=== PATIENT | female | born 1980 | race Caucasian/White ===

== ENCOUNTER 2025-04-19 15:48 | Outpatient (AMB) | payer BC, SELFPAY ==
--- OUTSIDE RECORDS SUMMARY | 2025-04-19 21:08 | XMS_ITS | Clinical Summary ---
Author Organization [facility] Address [address] [place], [place] [id number] Phone Care Team Providers Care Neonatal Surgeon Name Role Phone Abbey Kurtz MD Primary Care Provider Social History Tobacco Use Types Packs/Day Years Used Date Smoking Tobacco: Never Assessed Digital Access Answer Date Recorded No 03/13/2023 No 03/13/2023 Reliable internet access at home? Not on file 03/13/2023 Device with a working camera? Not on file Comments Unknown Sex and Gender Information Value Date Recorded Sex Assigned at Not on file Legal Sex Female 9:24 PM EDT Gender Identity Not on file Sexual Orientation Not on file Plan of Treatment Not on file Medical Devices Not on file Insurance [employer] PPO [employer] P[employer] Care Teams Neonatal Surgeon Relationship Specialty Start Date End Date Abbey Kurtz MD [id number] [id number] PCP - General Family Medicine 03/13/23 Additional Source Comments The information contained in this document represents components of the legal health record. It is not the complete legal health record.[facility]
== END 2025-04-19 15:58 | disposition home or self-care (01) ==
PROVIDERS: PCP Student in an Organized Health Care Education/Training Program; Visit Provider Registered Nurse Emergency
DX: J30.89 Other allergic rhinitis (principal)
CPT/HCPCS: 95117; 95165

== ENCOUNTER 2025-05-10 15:41 | Outpatient (AMB) | payer OTHER, SELFPAY ==
--- OUTSIDE RECORDS SUMMARY | 2025-05-10 18:01 | XMS_ITS | Data Portability ---
Author Organization 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 Patient consented to video & audio visit Patient was located in the [facility]. Provider was located in the office. No other persons participated in the telemedicine visit except for the patient unless otherwise indicated here. Total time of visit was 15 minutes. Not available 06/18/2024 12:08:40 Plan of Treatment Reminders Order Date Submit Date Provider Last Modified By Organization Details Last Modified Time Details Appointments FOLLOW UP 2025 08:45A He KURTZ MD Not available Not available Not available Lab lipid panel, serum 2024 025 [facility], [address] [place], [address], 03/26/2025 08:58:36 CBC w/ auto diff 2024 025 [facility], [address] [place], [address], 03/26/2025 08:58:36 TSH, ultra- sensit ritika, serum 2024 025 CHRISTINA [facility], [address], [place], [address], 03/26/2025 08:58:36 BMP, serum or plasma 2024 025 CHRISTINA [facility], [address], [place], [address], 03/26/2025 08:58:[address] referr al 2024 025 [facility], [address] [place] [address], [id number], 11/09/2024 10:38:23 Procedures None record ed. Surgeries None record ed. Imaging XR, chest, 2 view 2023 024 Not available 06/26/2024 15:28:25 Medication Orders famoti dine 20 mg tablet 2024 025 [id number], [address] [place] [address], [id number], 03/26/2025 09:20:44 amlodi pine 2.5 mg tablet 2024 025 [facility], [address] [place] [address], [id number], 10/12/2024 09:51:35 losart an 50 mg tablet 2024 025 [facility] #[id number], [address] [place] [address], [id number], 10/12/2024 09:44:42 Patient Targets Encounter Date Encounter Id Patient Goals Patient Target Last Modified By Organization Details Last Modified Time 08/13/2024 [id number] [facility] goal of Blood Pressure 140 / 90 Not available Not available Not available [facility] goal of Exercise level Not available Not available 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 and to monitor dietary sodium. Will monitor home blood pressures and bring readings to appointments. Patient preferences and goals incorporated in plan and updated/modifie d as needed to reflect progress toward goal. pmadden Not available 08/13/2024 15:37:19 Patient Instructions Encounter Date Encounter Id Patient Instructions Last Modified By Organization Details Last Modified Time 06/18/2024 [id number] allergies: care instructions Not available 06/18/2024 12:11:57 cold sores: care instructions Not available 06/18/2024 12:11:57 pulmonary function test* lmulerovalle Not available 07/16/2024 11:40:53 methacholine challenge* - to be done with pft testing lmulerovalle Not available 07/01/2024 11:36:23 08/13/2024 [id number] Medications (OTC, herbal therapies, supplements) reviewed and reconciled with patient and or caregiver, including potential side effects, drug interactions, instructions, and the consequences of not taking medication. Reviewed potential barriers to medication adherence, such as side effects from medication or cost of medication. pmadden Not available 08/13/2024 15:37:35 10/12/2024 [id number] Patient will follow up and keep appointment as scheduled. 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 LUNGS AND PLEURA : Clear lungs. Normal pulmon dora vascul arity. No pleura l effusi on. No pneumo thorax . HEART, MEDIAS TINUM AND TANNER: Heart is normal in size. Normal medias tinal and hilar contou r. BONES AND SOFT TISSUE S: No acute abnorm ality. Patila t has had a cholec ystect tori. IMPRES ERNIE: No acute abnorm ality. WSN: [id number] Orderi ng Physic driss: Heriberto Monet Dictat ed By: Robert Ayers MD Dictat ed Date/T deborah: 2:33 pm Review ed By: Robert Ayers MD Signed By: oRbert Ayers MD Signed Date/T deborah: 2:33 pm Transc ribed By: SHABBIR Transc ribed Date/T deborah: 2:31 pm Patila t Class: Outpat ient [facility] (Outpt Imaging) [address] , [place], [address], 06/26/2024 16:13:16 09/04/19 25 09/03/2024 MAMMO , scree licha, digit al, bilat eral PROCED URE: MM Digita l Mammo Screen ing INDICA TION: Screen ing for breast cancer . No known palpab le abnorm alitie s. COMPAR JAMIL: Multip le prior mammog joshua dating back to 08/13/19 23. TECHNI QUE: Full-f ield digita l CC and MLO 3D tomosy nthesi s images of both breast s were acquir ed. Comput er-aid ed detect ion (CAD) was utiliz ed in the interp retati on of this study. DENSIT Y: The breast tissue is extrem rajwinder dense, which lowers the sensit ivity of mammog claudia. FINDIN GS: No suspic ious masses , suspic ious microc alcifi cation s, or areas of nico ectura l distor tion are seen in either breast to sugges t malign radha. Biopsy clip in the right breast . Scatte red benign -appea ring calcif icatio ns bilate rally, with no aggres sive change . IMPRES ERNIE: No mammog raphic eviden ce of malign radha. RECOMM ENDATI ON: Annual mammog raphic screen ing BI-RAD S: 2 (Benig n) Lay letter mailed to christopher balderas WSN: [id number] Orderi ng Physic driss: Heriberto Monet Dictat ed By: Jose Raul Middleton MD Dictat ed Date/T deborah: 9:59 am Review ed By: Jose Raul Middleton MD Signed By: Jose Raul Middleton MD Signed Date/T deborah: 9:59 am Transc ribed By: CSB Transc riptio n Date/T deborah: 9:56 am Birads : Christopher balderas Class: Outpat ient [id number] [facility] (Outpt Imaging) [address] [place], [address], 09/04/2024 10:03:36 09/04/19 25 09/03/2024 MAMMO , scree licha, digit al, bilat eral No observ ation record ed. [facility] [address], [place], [address], 09/04/2024 10:14:10 Result Notes Documentation Provider Name and Address Organization Details Recorded Time Xr, Chest, 2 View : Chest 2 Views Frontal and Lat Reason: cough COMPARISON: 04/16/2018 FINDINGS: LINES AND TUBES: None. LUNGS AND PLEURA: Clear lungs. Normal pulmonary vascularity. No pleural effusion. No pneumothorax. HEART, MEDIASTINUM AND TANNER: Heart is normal in size. Normal mediastinal and hilar contour. BONES AND SOFT TISSUES: No acute abnormality. Patient has had a cholecystectomy. IMPRESSION: No acute abnormality. WSN: [id number] Ordering Physician: Abbey Kurtz Dictated By: Robert Jarvis MD Dictated Date/Time: 06/26/24 2:33 pm Reviewed By: Robert Jarvis MD Signed By: Robert Jarvis MD Signed Date/Time: 06/26/24 2:33 pm Transcribed By: SHABBIR Transcribed Date/Time: 06/26/24 2:31 pm Patient Class: Outpatient ABBEY KURTZ MD [address], [address], [facility] 06/26/2024 16:10:30 Mammo, Screening, Digital, Bilateral : PROCEDURE: MM Digital Mammo Screening INDICATION: Screening for breast cancer. No known palpable abnormalities. COMPARISON: Multiple prior mammograms dating back to 08/13/2022. TECHNIQUE: Full-field digital CC and MLO 3D tomosynthesis images of both breasts were acquired. Computer-aided detection (CAD) was utilized in the interpretation of this study. DENSITY: The breast tissue is extremely dense, which lowers the sensitivity of mammography. FINDINGS: No suspicious masses, suspicious microcalcifications, or areas of architectural distortion are seen in either breast to suggest malignancy. Biopsy clip in the right breast. Scattered benign-appearing calcifications bilaterally, with no aggressive change. IMPRESSION: No mammographic evidence of malignancy. RECOMMENDATION: Annual mammographic screening BI-RADS: 2 (Benign) Lay letter mailed to patient WSN: [id number] Ordering Physician: Abbey Kurtz Dictated By: Jose Raul Mojica MD Dictated Date/Time: 09/04/24 9:59 am Reviewed By: Jose Raul Mojica MD Signed By: Jose Raul Mojica MD Signed Date/Time: 09/04/24 9:59 am Transcribed By: SHABBIR Law Office Manager Date/Time: 09/04/24 9:56 am Birads: Patient Class: Outpatient Antonella tellez [facility] 09/04/2024 10:03:36 Problems Name Problem SNOMED Code Status Onset Date Resolution Date Notes Provider Name and Address Organization Details Recorded Time Low back pain 914096614 Active Ryanne tellez [facility] 5 20:03:23 Acute sinusiti s 10757636 Completed 01/25/2017 Ryanne Hathaway aniceto tellez [facility] 7 15:37:55 Pain of hip region 28888397 Completed 11/17/2018 Removal Reason: not specific Corrine Forte rosalinda [facility] 9 10:42:32 Osteonec rosis of hip 935277516 Completed 05/12/2019 Removal Reason: dx not specific Corrine Forte rosalinda [facility] 9 10:07:22 Acute conjunct ivitis 43144223 Completed 01/25/2017 Ryanne Hathaway aniceto tellez [facility] 7 15:38:37 Osteonec rosis of head of femur 554293735 Active osteonec rosis, did see a speciali st for discussi on of surgery, not yet a candidat e ABBEY KURTZ MD [address], [facility] [place], [address] , [facility] 3 14:01:31 Malignan t lymphoma (clinica l) Completed 199502/16/2014 DATE: 1995; STORY: S/P CHEMOTHE RAPY, IN REMISSIO N; IMPRESSI ON: NO FURTHER SURVEILL ANCE NEEDED, DOING GREAT; RECORDED 11/13/19 14 12:34PM BY ELMER SUH ON/ADDEN DUM Not Available [facility] 4 15:06:12 Malignan t lymphoma (clinica l) Completed 199503/15/2014 DATE: 1995; STORY: S/P CHEMOTHE RAPY, IN REMISSIO N; IMPRESSI ON: NO FURTHER SURVEILL ANCE NEEDED, DOING GREAT; RECORDED 11/13/19 14 12:34PM BY JOSE ALFREDO NELSON I ANNOTATI ON/ADDEN DUM Not Available [facility] 4 05:41:10 Generali zed abdomina l pain 666584542 Completed 200702/16/2014 IMPRESSI ON: I SPOKE WITH DR YECENIA MARRUFO, PT THERE WITH ABD PAIN, PANCREAT ITIS AND GALLSOTN ES AND DILATED CBD. WILL BE ADMITTED AND USE DR MILKA [facility]; RECORDED 04/21/20 08 8:12AM BY THERESA BOYLE ANNOTATI ON/ADDEN DUM Not Available [facility] 4 15:06:10 General examinat ion of patient Completed 200702/16/2014 IMPRESSI ON: PAP UTD, EXERCISE S, DOING WELL; RECORDED 04/21/20 08 8:12AM BY THERESA BOYLE ANNOTATI ON/ADDEN DUM Not Available [facility] 4 15:06:11 Generali zed abdomina l pain 805918349 Completed 200703/15/2014 IMPRESSI ON: I SPOKE WITH DR YECENIA MARRUFO, PT THERE WITH ABD PAIN, PANCREAT ITIS AND GALLSOTN ES AND DILATED CBD. WILL BE ADMITTED AND USE DR MILKA [facility]; RECORDED 04/21/20 08 8:12AM BY EFREM COLÓNATI ON/ADDEN DUM Not Available [facility] 4 05:41:09 General examinat ion of patient Completed 200703/15/2014 IMPRESSI ON: PAP UTD, EXERCISE S, DOING WELL; RECORDED 04/21/20 08 8:12AM BY THERESA BOYLE, ANNOTATI ON/ADDEN DUM Not Available [facility] 4 05:41:09 Knee pain Completed 200802/16/2014 IMPRESSI ON: PT'S LEFT LEG PAIN IS WORSE, WILL SEE DR MILLER NEXT WEEK AND I WILL GET AN XRAY AND TREAT WITH TYLENOL WITH CODEINE. HAD BEEN INTERMIT TANT WHEN LAST SEEN THOUGHT DUE TO MOVING BOXES, NOW PAINFUL ALL THE TIME; RECORDED 08/18/19 09 8:40AM BY EFREM COLÓNATI ON/ADDEN DUM Not Available [facility] 4 15:06:12 Knee pain Completed 200803/15/2014 IMPRESSI ON: PT'S LEFT LEG PAIN IS WORSE, WILL SEE DR MILLER NEXT WEEK AND I WILL GET AN XRAY AND TREAT WITH TYLENOL WITH CODEINE. HAD BEEN INTERMIT TANT WHEN LAST SEEN THOUGHT DUE TO MOVING BOXES, NOW PAINFUL ALL THE TIME; RECORDED 08/18/19 09 8:40AM BY THERESA BOYLE, ANNOTATI ON/ADDEN DUM Not Available [facility] 4 05:41:10 Diaper rash 75165108 Completed 200802/16/2014 RECORDED 11/18/19 09 9:58AM BY BRANDAN KAT MA, ANNOTATI ON/ADDEN DUM Not Available [facility] 4 15:06:11 Diaper rash 29992582 Completed 200803/15/2014 RECORDED 11/18/19 09 9:58AM BY BRANDAN KAT MA, ANNOTATI ON/ADDEN DUM Not Available [facility] 4 05:41:09 Influenz a vaccine needed [id number] 06 Completed 201002/16/2014 DATE: 09/07/19 11; RECORDED 07/03/20 13 10:40AM BY GERMAIN BURR MA, ANNOTATI ON/ADDEN DUM Not Available [facility] 4 15:06:11 Influenz a vaccine needed [id number] 06 Completed 201003/15/2014 DATE: 09/07/19 11; RECORDED 07/03/20 13 10:40AM BY GERMAIN BURR MA, ANNOTATI ON/ADDEN DUM Not Available [facility] 4 05:41:09 Elevated blood-pr essure reading without diagnosi s of hyperten ernie 273756525 Completed 201002/16/2014 IMPRESSI ON: 14BP'S AT HOME 120'S OVER 70'S, CONTINUE TO CHECK AT HOME, 6 MONTH FOLLOWUP ; RECORDED 12/02/19 11 10:53AM BY BRANDAN KAT MA, ANNOTATI ON/ADDEN DUM Not Available [facility] 4 15:06:11 Elevated blood-pr essure reading without diagnosi s of hyperten ernie 175289441 Completed 201003/15/2014 IMPRESSI ON: 14BP'S AT HOME 120'S OVER 70'S, CONTINUE TO CHECK AT HOME, 6 MONTH FOLLOWUP ; RECORDED 12/02/19 11 10:53AM BY BRANDAN KAT MA, EFREMATI ON/ADDEN DUM Not Available [facility] 4 05:41:09 Abdomina l pain 41617532 Completed 201102/16/2014 IMPRESSI ON: AFEBRILE , NON-ACUT E ABDOMEN; RECORDED 06/19/20 12 10:28AM BY EFREM SUHATI ON/ADDEN DUM Not Available [facility] 4 15:06:10 Amenorrh ea 81745440 Completed 201102/16/2014 RECORDED 06/19/20 12 10:28AM BY JOSE ALFREDO NELSON I ANNOTATI ON/ADDEN DUM Not Available [facility] 4 15:06:10 Screenin g for malignan t neoplasm of cervix Completed 201102/16/2014 RECORDED 06/19/20 12 10:28AM BY EFREM SUHATI ON/ADDEN DUM Not Available [facility] 4 15:06:11 Impetigo 50362723 Completed 201102/16/2014 RECORDED 06/19/20 12 10:28AM BY EFREM SUHATI ON/ADDEN DUM Not Available [facility] 4 15:06:12 Large cell anaplast ic lymphoma Completed 201102/16/2014 RECORDED 06/19/20 12 10:28AM BY EFREM SUHATI ON/ADDEN DUM Not Available [facility] 4 15:06:12 Malaise and fatigue 083570758 Completed 201102/16/2014 IMPRESSI ON: MOOD GOOD, WILL WEAN OFF ZOLOFT OVER 2 MONTHS; RECORDED 06/19/20 12 10:28AM BY JOSE ALFREDO NELSON I ANNOTATI ON/ADDEN DUM Not Available [facility] 4 15:06:12 Abdomina l pain 13107460 Completed 201103/15/2014 IMPRESSI ON: AFEBRILE , NON-ACUT E ABDOMEN; RECORDED 06/19/20 12 10:28AM BY JOSE ALFREDO NELSON I ANNOTATI ON/ADDEN DUM Not Available [facility] 4 05:41:09 Amenorrh ea 88896372 Completed 201103/15/2014 RECORDED 06/19/20 12 10:28AM BY JOSE ALFREDO NELSON I ANNOTATI ON/ADDEN DUM Not Available [facility] 4 05:41:09 Screenin g for malignan t neoplasm of cervix Completed 201103/15/2014 RECORDED 06/19/20 12 10:28AM BY JOSE ALFREDO NELSON I ANNOTATI ON/ADDEN DUM Not Available [facility] 4 05:41:09 Impetigo 39848731 Completed 201103/15/2014 RECORDED 06/19/20 12 10:28AM BY JOSE ALFREDO NELSON I ANNOTATI ON/ADDEN DUM Not Available [facility] 4 05:41:09 Large cell anaplast ic lymphoma Completed 201103/15/2014 RECORDED 06/19/20 12 10:28AM BY JOSE ALFREDO NELSON I ANNOTATI ON/ADDEN DUM Not Available [facility] 4 05:41:10 Malaise and fatigue 043919923 Completed 201103/15/2014 IMPRESSI ON: MOOD GOOD, WILL WEAN OFF ZOLOFT OVER 2 MONTHS; RECORDED 06/19/20 12 10:28AM BY JOSE ALFREDO NELSON I ANNOTATI ON/ADDEN DUM Not Available [facility] 4 05:41:10 Candidal vulvovag initis 56973367 Completed 201202/16/2014 RECORDED 10/24/19 13 10:17AM BY GERMAIN BURR MA, ANNOTATI ON/ADDEN DUM Not Available [facility] 4 15:06:13 Candidal vulvovag initis 63451518 Completed 201203/15/2014 RECORDED 10/24/19 13 10:17AM BY GERMAIN BURR MA, ANNOTATI ON/ADDEN DUM Not Available [facility] 4 05:41:10 Conjunct ivitis 8040017 Completed 201202/16/2014 RECORDED 03/11/20 13 10:11AM BY ULISES REDDY MA, ANNOTATI ON/ADDEN DUM Not Available [facility] 4 15:06:11 Joint pain in ankle and foot Completed 201202/16/2014 IMPRESSI ON: INVERSIO N INJURY, PT TO SEE DR FINCH , ? [facility]; RECORDED 03/11/20 13 10:11AM BY ULISES REDDY MA, ANNOTATI ON/ADDEN DUM Not Available [facility] 4 15:06:13 Conjunct ivitis 8259260 Completed 201203/15/2014 RECORDED 03/11/20 13 10:11AM BY ULISES REDDY MA, ANNOTATI ON/ADDEN DUM Not Available [facility] 4 05:41:09 Joint pain in ankle and foot Completed 201203/15/2014 IMPRESSI ON: INVERSIO N INJURY, PT TO SEE DR FINCH , ? [facility]; RECORDED 03/11/20 13 10:11AM BY ULISES REDDY MA, ANNOTATI ON/ADDEN DUM Not Available [facility] 4 05:41:10 Acute sinusiti s 24337674 Completed 201202/16/2014 IMPRESSI ON: INITIATE D BY ALLERGCRICKET SMoira JACK 2 DAYS FOR AUGMENTI N. START DOING NETI-POT AND FLONASE FIRST. TAKE AUGMENTI N IF NO IMPROVEM ENT.; RECORDED 06/08/20 13 3:41PM BY GERMAIN BURR MA, ANNOTATI ON/ADDEN DUM Ryanne tellez MA [facility] 7 15:37:55 Patient status finding [id number] Completed 201202/16/2014 RECORDED 06/08/20 13 3:41PM BY GERMAIN BURR MA ANNOTATI ON/ADDEN DUM Ryanne tellez MA [facility] 7 15:37:53 Acute sinusiti s 54188341 Completed 201203/15/2014 IMPRESSI ON: INITIATE D BY ALLERGIE S. HOLD 2 DAYS FOR AUGMENTI N. START DOING NETI-POT AND FLONASE FIRST. TAKE AUGMENTI N IF NO IMPROVEM ENT.; RECORDED 06/08/20 13 3:41PM BY GERMAIN BURR MA, ANNOTATI ON/ADDEN DUM Ryanne tellez MA - [facility] 7 15:37:55 Acute pharyngi tis 670659478 Completed 201302/16/2014 IMPRESSI ON: SEEMS LIKE INFLAMED LYMPH NODE, TIME AND REST NO EVIDENCE OF INFECTIO N; RECORDED 11/13/19 14 12:34PM BY EFREM SUHATI ON/ADDEN DUM Not Available [facility] 4 15:06:10 Hand foot and mouth disease 932226549 Completed 201302/16/2014 RECORDED 11/13/19 14 12:34PM BY EFREM SUHATI ON/ADDEN DUM Not Available [facility] 4 15:06:11 Eruption 030978270 Completed 201302/16/2014 RECORDED 11/13/19 14 12:34PM BY EFREM SUHATI ON/ADDEN DUM Not Available [facility] 4 15:06:13 Acute pharyngi tis 815389787 Completed 201303/15/2014 IMPRESSI ON: SEEMS LIKE INFLAMED LYMPH NODE, TIME AND REST NO EVIDENCE OF INFECTIO N; RECORDED 11/13/19 14 12:34PM BY EFREM SUHATI ON/ADDEN DUM Not Available [facility] 4 05:41:09 Hand foot and mouth disease 916476900 Completed 201303/15/2014 RECORDED 11/13/19 14 12:34PM BY EFREM SUHATI ON/ADDEN DUM Not Available [facility] 4 05:41:09 Eruption 378414215 Completed 201303/15/2014 RECORDED 11/13/19 14 12:34PM BY EFREM SUHATI ON/ADDEN DUM Not Available [facility] 4 05:41:10 Allergic rhinitis 57618811 Active 2013 IMPRESSI ON: USE FLONASE MOST OF THE YR. SHE HAD NORMAL EYE EXAM THIS YEAR. WE DISCUSSE D TO GET YEARLY EXAMS IF ON FLONASE YEAR ROUND; RECORDED 12/24/19 14 9:02AM BY BRANDAN KAT MA, OFFICE VISIT Dino Baez MD [address] [address], [facility] [place], [address] , [facility] 5 08:41:17 Anemia 978911691 Completed 201301/25/2017 STORY: MILD (LABS ON 10/11); RECORDED 12/24/19 14 9:02AM BY BRANDAN KAT MA, OFFICE VISIT Ryanne tellez [facility] 7 15:38:25 Adult health examinat ion Completed 201302/16/2014 IMPRESSI ON: PAP UTD, IS AND DOING WELL.; RECORDED 12/24/19 14 9:01AM BY BRANDAN KAT MA, ANNOTATI ON/ADDEN DUM Not Available [facility] 4 15:06:11 Anxiety state 228970098 Completed 201301/25/2017 RECORDED 12/24/19 14 9:02AM BY BRANDAN KAT MA, OFFICE VISIT Ryanne tellez [facility] 7 15:48:19 History of malignan t neoplasm 270346140 Completed 201304/29/2018 STORY: LARGE CELL, IN REMISSIO N 1996; RECORDED 12/24/19 14 9:02AM BY BRANDAN KAT MA, OFFICE VISIT Ryanne tellez [facility] 8 15:57:04 Pure hypercho lesterol emia 590657863 Completed 201301/25/2017 RECORDED 12/24/19 14 9:02AM BY BRANDAN KAT MA, OFFICE VISIT Ryanne tellez [facility] 7 15:38:18 [facility]ia l hyperten ernie 61297502 Completed 201301/25/2017 IMPRESSI ON: PT IS OFF MEDS AND BP IS GREAT, IT WILL BE CLOSELY MONITORE D DUE TO PREGNANC Y; RECORDED 12/24/19 14 9:02AM BY BRANDAN KAT MA, OFFICE VISIT Kathy Bhatia MA null, [facility] 8 14:04:02 Migraine 29791985 Active 2013 IMPRESSI ON: VERY BOTHERSO ME TO PT, I ADVISED HER TO AVOID IMITREX OR FIORICET DUE TO TRYING TO GET . PT MOST LIKELY GETTING MIGRAINE S RELATED TO BAROMETR IC/SINUS TRIGGER. IRRIGATE , LIMITED WITH MEDS BUT ONCE DONE GETTIGN WOULD BENEFIT FORM TCA; RECORDED 12/24/19 14 9:02AM BY BRANDAN KAT MA, OFFICE VISIT Ryanne tellez [facility] 5 17:49:45 Non-neop lastic nevus 090419339 Completed 201301/25/2017 RECORDED 12/24/19 14 9:02AM BY BRANDAN KAT MA, OFFICE VISIT Ryanne tellez [facility] 7 15:37:58 Patient status finding 083557201 Completed 201301/25/2017 RECORDED 12/24/19 14 9:03AM BY BRANDAN KAT MA, OFFICE VISIT Ryanne tellez [facility] 7 15:37:53 Chronic sinusiti s 20763548 Completed 201301/25/2017 IMPRESSI ON: ENCOURAG E REST AND HYDRATIO N. RTC IF PERSISTE NT OR WORSENIN G SYMPTOMS .; RECORDED 12/24/19 14 9:23AM BY SAVANNAH DAY PA-C, OFFICE VISIT Ryanne tellez [facility] 7 15:38:31 Adult health examinat ion Completed 201303/15/2014 IMPRESSI ON: PAP UTD, IS AND DOING WELL.; RECORDED 12/24/19 14 9:01AM BY BRANDAN KAT MA, ANNOTATI ON/ADDEN DUM Not Available [facility] 4 05:41:09 Degenera tion of lumbar interver tebral disc 81136646 Completed 201301/25/2017 RECORDED 12/24/19 14 9:02AM BY BRANDAN KAT MA, OFFICE VISIT Ryanne tellez [facility] 7 15:48:16 At increase d risk for cardiova scular event 123290718 Completed 201710/05/2019 Ryanne tellez [facility] 0 14:41:28 History of malignan t lymphoma 785853057 Active 2017 Ryanne tellez [facility] 8 15:56:59 Family history of cardiac disorder 480075171 Active 2017 Ryanne tellez [facility] 8 16:39:31 [facility] hyperten ernie [id number] Active 2017 THERESA Valverde [facility] 8 14:04:02 Pain of hip region [id number] Completed 201811/17/2018 Removal Reason: not specific Corrine Forte rosalinda [facility] 9 10:42:32 Osteonec rosis of hip [id number] Completed 201805/12/2019 Removal Reason: Not Specific Corrine Forte rosalinda [facility] 9 10:07:22 Female urinary stress incontin ence [id number] Active 2019 THERESA Valverde [facility] 0 14:21:35 Hypokale say [id number] Completed 202003/19/2024 ABBEY KURTZ MD [address], [place], [id number] , [facility] 4 07:37:12 Pain of right ankle joint [id number] Completed 202303/26/2025 ABBEY KURTZ MD [address], [place], [phone] , [facility] 5 09:24:35 Pain in right lower limb 591281336 Completed 202303/26/2025 ABBEY KURTZ MD [address], [place], [address] , [facility] 5 09:24:43 Pain of toe of left foot [id number] 9108 Completed 202403/26/2025 ABBEY KURTZ MD [address], [place], [address] , [facility] 5 09:24:29 Pain in bilatera l feet [id number] Completed 202403/26/2025 ABBEY KURTZ MD [address], [place], [address] , [facility] 5 09:24:26 Erythrom elalgia [id number] Active 2024 ABBEY KURTZ MD [address], [place], [phone] , [facility] 5 07:53:31 Problem Notes None recorded. Procedures Surgical History Date Name Laterality Status Provider Name and Address Organization Details Recorded Time 09/04/19 25 Most Recent Mammogram completed Antonella Martines [facility] 09/04/2024 10:03:33 03/13/20 23 Colonoscopy completed Antonella Martines [facility] 03/14/2023 09:47:05 08/13/19 23 Mammogram both breasts completed Kyra Echavarria [facility] 08/15/2022 12:25:21 08/05/19 23 Date of Last Pap Smear completed Kathy Bhatia MA [facility] 02/07/2023 13:53:55 02/07/20 22 Mammogram one breast completed Kusum Rodriges [facility] 02/09/2022 11:04:15 02/03/20 21 Ultrasound breast limited completed Apoorva Brewster [facility] 02/27/2021 13:57:38 02/29/20 20 biopsy of breast completed Brandan reddy MA [facility] 11/12/2022 16:12:38 07/07/20 19 repair of stress incontinence by suprapubic sling completed Kathy Bhatia MA [facility] 10/05/2019 14:24:39 07/07/20 19 anterior colporrhaphy for repair of cystocele without repair of urethrocele completed Brandan reddy MA [facility] 11/12/2022 16:11:19 10/15/18 96 Appendectomy completed Kathy Bhatia MA [facility] 01/12/2022 15:25:24 10/03/18 96 Cancer Surgery completed Kathy Bhatia MA [facility] 01/12/2022 15:25:23 Cholecystectomy completed Brandan reddy MA [facility] 11/12/2022 16:00:18 nasal septoplasty completed Brandan Kilgore-Frantz reddy MA [facility] 11/12/2022 16:13:00 lengthening of tendon of upper arm completed Brandan reddy MA [facility] 11/12/2022 16:13:41 Imaging Results None recorded. Procedure Notes None recorded. Medical Equipment None Reported. Allergies Allergen ID Allergen Name Allergen Category Reaction Reaction Severity Criticality Documentation Date Start Date Code Code System Note Provider Name and Address Organization Details Recorded Time 7062 Procardia medicatio n edema tachycard ia Not available Not available Not available 02/16/2014201342 3 RxNorm Prasanna Joya PA-C [address], [facility] [place], [phone], [facility] 5 09:51:11 7063 vancomyci n hydrochlo ride medicatio n rash Not available Not available 02/16/20142013 51483 RxNorm Brandan kumar MA null, [facility] 3 15:49:42 Medications Name Sig Start Date Stop Date Status Note LastModified by Organization Details LastModified Time losartan 50 mg tablet TAKE 1 TABLET BY MOUTH EVERY DAY 10/12 completed Not Available Not Available Not Available cyclobenz aprine 10 mg tablet TAKE 1 TABLET BY MOUTH EVERY DAY AT BEDTIME NEEDED FOR 30 DAYS 09/17 completed Not Available Not Available Not Available amoxicill in 500 mg capsule TAKE 1 CAPSULE BY MOUTH THREE TIMES DAILY UNTIL GONE 06/18 completed Not Available Not Available Not Available Mirena 21 mcg/24 hr (up to 8 years) 52 mg intrauter ine device Take 1 device as needed by intraute rine route as directed for 365 days. 05/31 completed Not Available Not Available Not Available desonide 0.05 % topical cream 01/25 completed Not Available Not Available Not Available prednison e 10 mg tablet 01/25 completed Not Available Not Available Not Available doxycycli ne hyclate 100 mg capsule 01/25 completed Not Available Not Available Not Available cetirizin e 10 mg tablet TAKE 1 TABLET BY MOUTH EVERY DAY 09/17 completed Not Available Not Available Not Available azithromy cruzito 250 mg tablet 11/14 completed Not Available Not Available Not Available ibuprofen 800 mg tablet Q 6HRS PRN PAIN 06/18 completed RECORDED 06/18/20 12 4:25PM BY ELMER ADAMS ON/ROBY GERMAIN; Not Available Not Available Not Available fluconazo le 150 mg tablet Take 1 tablet by oral route for 2 days. 07/14 completed Not Available Not Available Not Available sumatript an 100 mg tablet active Not Available Not Available Not Available hydrocodo ne 5 mg-acetam inophen 325 mg tablet Take 1 tablet every 12 hours by oral route as needed for 14 days. 2014 active Not Available Not Available Not Avai lable meloxicam 15 mg tablet TAKE 1 TABLET BY MOUTH EVERY DAY WITH FOOD 02/07 completed Not Available Not Available Not Available ondansetr on HCl 4 mg tablet TAKE 1 TABLET BY MOUTH EVERY 8 HOURS NEEDED FOR NAUSEA/V OMITING AT ONSET OF MIGRAINE active Not Available Not Available No t Available prednison e 20 mg tablet TAKE 3 TABLETS DAILY X 3 DAYS THEN 2 TABLETS DAILY X 3 DAYS THEN 1 TABLET DAILY UNTIL FINISHED WITH FOOD 03/26 completed Not Available Not Available Not Available clobetaso l 0.05 % topical cream 01/12 completed apply thin layer prn Not Available Not Available Not Available sumatript an 50 mg tablet one po daily as needed for migraine active Not Available Not Available No t Available topiramat e 25 mg tablet 01/25 completed Not Available Not Available Not Available amlodipin e 2.5 mg tablet TAKE 1 TABLET BY MOUTH EVERY DAY AT BEDTIME active Not Available Not Available No t Available potassium chloride ER 10 mEq tablet,ex tended release Take 3 tablets every day by oral route for 30 days. 05/31 completed Not Available Not Available Not Available metronida zole 500 mg tablet Take 1 tablet every 8 hours by oral route for 10 days. 05/11 completed Not Available Not Available Not Available levofloxa cruzito 250 mg tablet Take 1 tablet every day by oral route for 5 days. 07/14 completed Not Available Not Available Not Available valacyclo vir 500 mg tablet TAKE 1 TABLET BY MOUTH EVERY DAY DIRECTED 10/12 completed Not Available Not Available Not Available sulfameth oxazole 800 mg-trimet hoprim 160 mg tablet TAKE 1 TABLET BY MOUTH TWICE A DAY FOR 3 DAYS 05/31 completed Not Available Not Available Not Available tramadol 50 mg tablet Take 1 tablet every 8 hours by oral route as needed for 30 days. 01/25 completed Not Available Not Available Not Available dronabino l 2.5 mg capsule 01/25 completed Not Available Not Available Not Available nortripty line 25 mg capsule Take 1 capsule every day by oral route for 90 days. 01/12 completed 35 mg total Not Available Not Available Not Available Fluticaso ne Propionat e (Inhal) 50 mcg/BLIST inhl powd EACH NOSTRIL ONCE DAILY 11/12 completed RECORDED 11/13/19 14 2:51PM BY GERMAIN BURR MA, OFFICE VISIT; Not Available Not Available Not Available amoxicill in 875 mg tablet TWO TIMES DAILY 2013 active RECORDED 12/24/19 14 9:20AM BY SAVANNAH DAY PA-C, OFFICE VISIT; Not Available Not Available Not Available famotidin e 20 mg tablet Take 1 tablet twice a day by oral route for 90 days. 2024 active Not Available Not Available Not Avai lable topiramat e 25 mg sprinkle capsule active Not Available Not Available Not Available Bactroban 2 % topical ointment THREE TIMES DAILY 03/09 completed RECORDED 03/09/20 11 1:09PM BY MIRA VALVERDE ON AUTO-MAGALYS CTIVATIO N; Not Available Not Available Not Available erythromy cruzito 5 mg/gram (0.5 %) eye ointment APPLY 1/4 INCH RIBBON TO LEFT EYE 4 TIMES DAILY FOR 5 DAYS 09/20 completed Not Available Not Available Not Available hyoscyami ne sulfate 0.125 mg tablet EVERY 4 HOURS OR NEEDED 12/08 completed RECORDED 02/20/20 11 11:31AM BY SAVANNAH DAY PA-C, MEDICATI ON AUTO-MAGALYS CTIVATIO N; Not Available Not Available Not Available nortripty line 10 mg capsule TAKE 1 CAPSULE BY MOUTH EVERY DAY 01/12 completed Not Available Not Available Not Available naproxen sodium 550 mg tablet TWO TIMES DAILY 01/06 completed RECORDED 01/25/20 09 1:37PM BY BRENDA HALL MD, MEDICATI ON AUTO-MAGALYS CTIVATIO N; Not Available Not Available Not Available Cipro 500 mg tablet Take 1 tablet every 12 hours by oral route for 10 days. 05/11 completed Not Available Not Available Not Available ranitidin e 150 mg tablet BID 06/18 completed RECORDED 06/18/20 12 4:25PM BY DANK YU, ANNOTATI ON/ADDEN DUM; Not Available Not Available Not Available butalbita l 50 mg-acetam inophen 325 mg-caffei ne 40 mg-codein e 30 mg cap 04/16 completed Not Available Not Available Not Available fluoromet holone 0.1 % eye drops,mickey pension 04/16 completed Not Available Not Available Not Available polymyxin B sulfate 10,000 unit-trim ethoprim 1 mg/mL eye drops INSTILL 1 DROP INTO AFFECTED EYE(S) BY OPHTHALM IC ROUTE EVERY 6 HOURS 01/25 completed Not Available Not Available Not Available Ovral (28) 0.5 mg-50 mcg tablet QD active RECORDED 09/10/19 12 3:55PM BY RYANNE Boudreaux MD, ANNOTATI ON/ADDEN DUM;PRES CRIBED BY DR CORNELIUS Not Available Not Available Not Available butalbita l-aspirin -caffeine 50 mg-325 mg-40 mg capsule one po every 6 hours prn migraine active Not Available Not Available No t Available diclofena c sodium 75 mg tablet,de layed release Take 1 tablet twice a day by oral route with meals for 30 days. 02/07 completed Not Available Not Available Not Available bisacodyl 5 mg tablet,de layed release TAKE 4 TABLETS BY MOUTH DAILY FOR 1 DAY 09/20 completed Not Available Not Available Not Available lisinopri l 5 mg tablet Take 1 tablet every day by oral route for 90 days. 08/13 completed Not Available Not Available Not Available hydrochlo rothiazid e 25 mg tablet TAKE 1 TABLET DAILY DIRECTED 09/17 completed Not Available Not Available Not Available gabapenti n 100 mg capsule Take 1 capsule 3 times a day by oral route for 7 days. 01/12 completed Not Available Not Available Not Available selenium sulfide 2.5 % shampoo DAILY 12/01 completed RECORDED 12/02/19 11 10:56AM BY BRANDAN KAT MA, OFFICE VISIT;AP PLY TO RASH 15 MINUTES BEFORE SHOWER DAILY UNTIL RASH RESOLVES Not Available Not Available Not Available Nasonex 50 mcg/actua tion [place] DAILY IN EACH NOSTRIL 11/10 completed RECORDED 11/11/19 13 2:57PM BY KATHY BHATIA, OFFICE VISIT; Not Available Not Available Not Available Tylenol-C odeine #3 300 mg-30 mg tablet Q 6HRS PRN PAIN 05/17 completed RECORDED 05/25/20 08 8:52AM BY RYANNE Boudreaux MD, MEDICATI ON AUTO-MAGALYS CTIVATIO N; Not Available Not Available Not Available ibuprofen 600 mg tablet TAKE 1 TABLET BY MOUTH EVERY 6 HOURS NEEDED FOR PAIN active Not Available Not Available No t Available methylpre dnisolone 4 mg tablets in a dose pack FOLLOW PACKAGE DIRECTIO NS active Not Available Not Available No t Available sumatript an 20 mg/actuat ion nasal spray 01/25 completed Not Available Not Available Not Available ketoconaz ole 2 % topical cream APPLY TWICE DAILY TO AFFECTED AREAS ON CHEST UNTIL RESOLVED . 10/05 completed Not Available Not Available Not Available ondansetr on 4 mg disintegr ating tablet 1 po prn nausea 10/09 completed Not Available Not Available Not Available topiramat e 100 mg tablet 01/25 completed Not Available Not Available Not Available sertralin e 50 mg tablet QD 12/01 completed RECORDED 12/02/19 11 10:55AM BY BRANDAN KAT MA, OFFICE VISIT; Not Available Not Available Not Available naratript an 2.5 mg tablet TAKE 1 TABLET BY MOUTH DAILY NEEDED FOR MIGRAINE HEADACHE . MAY REPEAT 1 TIME. LIMIT USE TO 2 DAYS PER WEEK active Not Available Not Available No t Available naproxen 500 mg tablet TAKE 1 TABLET TWICE A DAY BY MOUTH FOR 14 DAYS. 05/31 completed Not Available Not Available Not Available metoclopr amide 10 mg tablet Take 1 tablet 4 times a day by oral route as needed. 01/25 completed Not Available Not Available Not Available amoxicill in 875 mg-potass ium clavulana te 125 mg tablet Take 1 tablet every 12 hours by oral route for 10 days. 01/25 completed Not Available Not Available Not Available tobramyci n 0.3 %-dexamet hasone 0.1 % eye drops,mickey pension INSTILL 1 DROP INTO AFFECTED EYE EVERY 6 HOURS 06/18 completed Not Available Not Available Not Available oxycodone 5 mg tablet TAKE 1 TABLET BY MOUTH EVERY 4 HOURS NEEDED PAIN 06/18 completed Not Available Not Available Not Available Benicar 20 mg tablet active RECORDED 02/17/20 09 8:19AM BY BRANDAN KAT MA, OFFICE VISIT; Not Available Not Available Not Available prednisol one sodium phosphate 5 mg base/5 mL (6.7 mg/5 mL) oral soln TAKE 5 ML BY MOUTH TWICE A DAY GARGLE AND SWALLOW FOR 7 DAYS 09/17 completed Not Available Not Available Not Available Cryselle (28) 0.3 mg-30 mcg tablet DAILY 06/08 completed RECORDED 06/08/20 13 3:44PM BY GERMAIN BURR MA, OFFICE VISIT; Not Available Not Available Not Available cyclobenz aprine 5 mg tablet Take 1 tablet every day by oral route for 20 days. 01/12 completed prn Not Available Not Available Not Available topiramat e 50 mg tablet 01/25 completed Not Available Not Available Not Available nitrofura ntoin monohydra te/macroc rystals 100 mg capsule Take 1 capsule twice a day by oral route for 7 days. 11/14 completed Not Available Not Available Not Available chlorhexi dine gluconate 0.12 % mouthwash SWISH WITH 15 MLS BY MOUTH FOR 30 SECS TWICE DAILY AND SPIT FOR 2 WEEKS 06/18 completed Not Available Not Available Not Available magnesium 250 mgs po bid 05/31 completed Not Available Not Available Not Available Co Q-10 100 mgs 1 po qd 05/31 completed Not Available Not Available Not Available Flonase QD 12/16 completed RECORDED 12/17/19 07 3:54PM BY BRANDAN KAT MA, MEDICATI ON AUTO-MAGALYS CTIVATIO N;THIS ORDER DISCONTI NUED PER MEDI-SPA N. Not Available Not Available Not Available calcium DAILY active RECORDED 09/10/19 12 3:55PM BY RYANNE Boudreaux MD, ANNOTATI ON/ADDEN DUM; Not Available Not Available Not Available B Complex DAILY active RECORDED 09/10/19 12 3:55PM BY RYANNE Boudreaux MD, ANNOTATI ON/ADDEN DUM; Not Available Not Available Not Available labetalol TWO TIMES DAILY, NEEDED active RECORDED 03/11/20 13 10:57AM BY PHILIP PERAZA, ANNOTATI ON/ADDEN DUM; Not Available Not Available Not Available DAILY active RECORDED 12/24/19 14 9:02AM BY BRANDAN KAT MA, OFFICE VISIT; Not Available Not Available Not Available fexofenad ine DAILY 05/16 completed RECORDED 05/16/20 11 3:34PM BY MILANA BRUNSON MA, OFFICE VISIT; Not Available Not Available Not Available Vitamin B6 1 po qd 03/20 completed Not Available Not Available Not Available One A Day Vitamin take 1 tab daily po active Not Available Not Available No t Available Multivita mins QD 06/18 completed RECORDED 06/18/20 12 4:25PM BY DANK YU, EFREMATI ON/ADDEN DUM;OTC Not Available Not Available Not Available ProAir HFA 90 mcg/actua tion aerosol inhaler 01/25 completed Not Available Not Available Not Available biotin 2,500 mcg capsule Take 1 capsule every day by oral route in the morning. 08/23 completed Not Available Not Available Not Available GaviLyte- G 236 gram-22.7 4 gram-6.74 gram-5.86 gram oral solution 4000 ML ORALLY PT HAS INSTRUCT IONS 2 DAYS 09/20 completed Not Available Not Available Not Available Multi Complete with Iron 01/25 completed Not Available Not Available Not Available B12 active Chewable Not Available Not Avai lable Not Available Probiotic 1 capsule daily active Not Available Not Available No t Available - 1 QD 10/23 completed RECORDED 10/24/19 13 10:19AM BY GERMAIN BURR MA, OFFICE VISIT; Not Available Not Available Not Available Prolensa 0.07 % eye drops INSTILL 1 DROP INTO LEFT EYE TWICE DAILY NEEDED FOR PAIN 06/18 completed Not Available Not Available Not Available Fioricet with Codeine 50 mg-300 mg-40 mg-30 mg capsule Take 1 capsule every 6 hours by oral route as needed for 10 days. 2014 active Not Available Not Available Not Avai lable potassium chloride ER 20 mEq tablet,ex tended release TAKE 1 TABLET EVERY DAY BY ORAL ROUTE FOR 30 DAYS. 08/23 completed Not Available Not Available Not Available Flonase Allergy Relief 50 mcg/actua tion nasal spray,mickey pension [place] 1 spray every day by intranas al route. active Not Available Not Available No t Available Liletta 20.4 mcg/24 hr (up to 8 years) 52 mg intrauter ine device Take 1 device by intraute rine route. active Not Available Not Available No t Available Fish Oil 1,000 mg (120 mg-180 mg) capsule Take 1 capsule every day by oral route in the morning. 05/31 completed Not Available Not Available Not Available Readi-Cat 2 2 % (w/v) oral suspensio n Take 450 mL twice a day by oral route as directed for 1 day. 05/11 completed Not Available Not Available Not Available Emgality Pen 120 mg/mL subcutane ous pen injector INJECT 120MG UNDER SKIN EVERY 28 DAYS active Not Available Not Available No t Available Emgality 120 mg/mL subcutane ous syringe inject monthly 01/12 completed Not Available Not Available Not Available EC-Naprox en 500 mg tablet,de layed release 08/23 completed Not Available Not Available Not Available Wixela Inhub 250 mcg-50 mcg/dose powder for inhalatio n INHALE 1 PUFF TWICE A DAY 06/18 completed Not Available Not Available Not Available Aimovig Autoinjec tor 140 mg/mL subcutane ous auto-inje ctor Inject 1 mL every month by subcutan eous route. 05/31 completed Not Available Not Available Not Available Vitals Date Recorded Body height Body mass index (BMI) Body weight Heart rate Oxygen saturation Oxygen saturation in Arterial blood by Pulse oximetry Body temperature Systolic And Diastolic Provider Name and Address Organization Details Last Updated DateTime 5 165.74 cm 24.3 kg/m2 00737.7 8 g 79 /min 98 % 98 % 98.2 [degF] 150/89 mm[Hg] Savannah Garcia MA [facility] 5 15:09:16 Date Recorded Body height Body mass index (BMI) Body weight Heart rate Oxygen saturation Oxygen saturation in Arterial blood by Pulse oximetry Body temperature Systolic And Diastolic Provider Name and Address Organization Details Last Updated DateTime 165.74 cm 24.3 kg/m2 55280.0 8 g 98 /min 100 % 100 % 98.3 [degF] 122/88 mm[Hg] Tati Barrow [facility] 09:06:38 Date Recorded Systolic And Diastolic Provider Name and Address Organization Details Last Updated DateTime 11/12/2024 146/87 mm[Hg] ABBEY KURTZ MD [address] [facility] [address], [place], [address], [facility] 11/12/2024 14:49:57 Date Recorded Body height Body mass index (BMI) Body weight Heart rate Oxygen saturation Oxygen saturation in Arterial blood by Pulse oximetry Body temperature Systolic And Diastolic Provider Name and Address Organization Details Last Updated DateTime 165.74 cm 24.6 kg/m2 64825.2 6 g 76 /min 100 % 100 % 97.7 [degF] 135/88 mm[Hg] [facility] 14:36:46 Date Recorded Systolic And Diastolic Provider Name and Address Organization Details Last Updated DateTime 11/15/2024 124/80 mm[Hg] [facility] 11/24/2024 11:41:16 Date Recorded Systolic And Diastolic Provider Name and Address Organization Details Last Updated DateTime 11/16/2024 117/84 mm[Hg] CRISTINA Brooks MA [facility] 11/24/2024 11:39:22 Date Recorded Systolic And Diastolic Provider Name and Address Organization Details Last Updated DateTime 11/17/2024 123/85 mm[Hg] CRISTINA Brooks MA [facility] 11/24/2024 11:39:42 Date Recorded Systolic And Diastolic Provider Name and Address Organization Details Last Updated DateTime 11/18/2024 121/87 mm[Hg] CRISTINA Brooks MA [facility] 11/24/2024 11:40:27 Date Recorded Systolic And Diastolic Provider Name and Address Organization Details Last Updated DateTime 11/19/2024 121/86 mm[Hg] Swapnil Moore RN [facility] 11/24/2024 11:41:56 Date Recorded Systolic And Diastolic Provider Name and Address Organization Details Last Updated DateTime 11/20/2024 123/85 mm[Hg] Swapnil Moore RN [facility] 11/24/2024 11:42:23 Date Recorded Systolic And Diastolic Provider Name and Address Organization Details Last Updated DateTime 11/21/2024 121/81 mm[Hg] Swapnil Moore RN [facility] 11/24/2024 11:42:58 Date Recorded Body height Body mass index (BMI) Body weight Heart rate Oxygen saturation Oxygen saturation in Arterial blood by Pulse oximetry Body temperature Systolic And Diastolic Provider Name and Address Organization Details Last Updated DateTime 165.74 cm 24.6 kg/m2 97538.2 6 g 77 /min 99 % 99 % 98 [degF] 118/81 mm[Hg] Tati Barrow MA [facility] 08:34:53 Date Recorded Body height Provider Name an d Address Organization Details Last Updated DateTime 06/18/2024 165.74 cm Kathy Bhatia MA [facility] 06/18/2024 11:23:23 Social History Question Answer Notes LastModified by Organizat ion Details LastModified Time Tobacco Smoking Status [facility] 15:40:32 Is Blood Transfusion Acceptable In An Emergency? Yes Information not available 01/25/2017 What Is Your Level Of Caffeine Consumption? Occasional [email or web address] Information not available 11/17/2014 How Much Tobacco Do You Chew? None Information not available 01/25/2017 In The 14 Days Before Symptom Onset, Have You Had Close Contact With A [facility] COVID-19 While That Case Was Ill? No Information not available 01/12/2022 In The 14 Days Before Symptom Onset, Have You Had Close Contact With A Person Who Is Under Investigation For COVID-19 While That Person Was Ill? No Information not available 01/12/2022 Have You Been To An Area Known To Be High Risk For COVID-19? No Information not available 01/12/2022 What Type Of Diet Are You Following? REGULAR [email or web address] Information not available 11/17/2014 Which Illicit Or Recreational Drugs Have You Used? None Information not available 01/25/2017 Live Alone Or With Others? With Others 2 Daughters Information not available 01/12/2022 Do You Take Precautions To Prevent Distracted Driving? Yes Information not available 01/25/2017 How Often Do You Need To Have Someone Help You When You Read Instructions, Pamphlets, Or Other Written Material From Your Doctor Or Pharmacy? Never Information not available 01/25/2017 Have You Served In The ? No Information not available 01/25/2017 Have You Or Anyone In Your Household Had Any Of The Following Symptoms In The Last 14 Days: Sore Throat, Cough, Chills, Body Aches For Unknown Reasons, Shortness Of Breath For Unknown Reasons, Loss Of Smell, Loss Of Taste, Fever At Or Greater Than 100 Degrees Fahrenheit? No [email or web address] Information not available 03/22/2020 Are You Or Anyone In Your Household A Health Care Provider Or Emergency Responder? No [email or web address] Information not available 03/22/2020 To The Best Of Your Knowledge Have You Been In Close Proximity To Any Individual Who Tested Positive For COVID-19? No [email or web address] Information not available 03/22/2020 Have You Recently Traveled To A COVID-19 High Risk Area Or Gathering In The Last 10 Days? No [email or web address] Information not available 05/31/2021 What Was The Date Of Your Most Recent Tobacco Screening? 03/26/2025 [email or web address] Information not available 03/26/2025 How Many Children Do You Have? 2 [email or web address] Information not available 11/17/2014 Do You Use Protection During Sex? No Information not available 01/25/2017 Seat Belts Used Routinely Yes Information not available 01/12/2022 Are You Sexually Active? Yes Information not available 01/25/2017 Smoke Alarm In Home Yes Information not available 01/12/2022 Are You Passively Exposed To Smoke? No Information not available 01/25/2017 How Much Tobacco Do You Smoke? No Information not available 01/25/2017 General Stress Level Low Information not available 01/12/2022 Do You Use Sunscreen Routinely? Yes [email or web address] Information not available 11/17/2014 Sex: Unknown Functional Status Question Answer Note LastModified by Organizat ion Details LastModified Time Do you use any illicit or recreational drugs? No [email or web address] Information not available 03/20/2024 What is your level of alcohol consumption? Occasional [email or web address] Information not available 11/17/2014 Do you or have you ever used smokeless tobacco? Never used smokeless tobacco [email or web address] Information not available 05/11/2019 Are you currently employed? Yes [email or web address] Information not available 11/17/2014 Are you able to walk independently without assistance or assistive devices? YESWOREST [email or web address] Information not available 01/12/2022 Are you able to care for yourself independently? 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 Never used electronic cigarettes Information not available 01/12/2022 What is your exercise level? Heavy Information not available 01/12/2022 Mental Status None recorded. Family History Relationship Description Onset Age of this Age Resolved Age Notes LastModified by Organization Details LastModified Time Father Hypertensive disorder [email or web address] Not available 2014 09:14:33 Father Myocardial infarction 40 Not available 01/12 15:22:51 Father Malignant neoplasm of liver Not available 03/26 08:41:47 Brother Neoplasm of stomach 48 Stage 4 [email or web address] Not available 03/20/2024 15:17:29 Notes:No FH of breast or col on cancer Medical History Condition Response Other N Gout N Blood Diseases N Kidney Stones N Hyperthyroidism N Breast Cancer N Lung Disease N COPD N Depression N Hypothyroidism N Defects or Inherited Disease N Anesthesia Complications N Headaches/Migraines Y Varicose Veins N Anxiety Disorder N Obesity N Vision or Eye Problems N Arthritis N Head Injury/Concussion Y Polyps N Infertility N Congenital Anomalies N Acid Reflux (GERD) N Cancer Y Stroke N ADHD N Endometriosis N High Cholesterol N Liver Disease N Fibromyalgia N Kidney Disease N Heart Problems N Ear or Hearing Problems N Hospitalizations N Thyroid Problems N GI Problems N Acne N Skin Problems N Eating Disorder N Anemia N Constipation Y Bladder Problems Y Mental Illness N Ovarian Cancer N Diabetes N Blood Transfusions N Seizures/Epilepsy Y Tuberculosis N AIDS/HIV N Congestive Heart Failure (CHF) N Eczema N Diverticulitis N Abuse/Domestic Violence N Allergies Y Asthma N Reflux/GERD N Hepatitis N Pulmonary Embolism N Hypertension Y Osteoporosis N Chicken Pox Y Autism Spectrum Disorder (ASD) N Gynecological History Statement/Question Response Abnormal Pap N Date of Last Pap Smear 08/05/2022 Age at Menarche 11 Current Control Method IUD Most Recent Mammogram 09/04/2024 Age at First Child 32 Obstetrics History GPAL:G 0 P 0 0 0 0 Immunizations Vaccine Type Date Status Note Provider Nam e and Address Organization Details Recorded Time Influenza, split virus, quadrivalent, preservative 8 completed THERESA Waddell [facility] 09/20/2023 10:06:53 Influenza, split virus, quadrivalent, preservative 9 completed THERESA Valverde [facility] 05/11/2019 15:44:37 MMR 0 completed Kusum tellez [facility] 06/22/2019 14:36:24 MMR 1 completed Kusum tellez [facility] 06/22/2019 14:36:38 Influenza, split virus, quadrivalent, preservative 1 completed THERESA Waddell [facility] 09/20/2023 10:06:53 COVID-19, mRNA, LNP-S, PF, 100 mcg/0.5mL dose or 50 mcg/0.25mL dose 1 completed THERESA Valverde [facility] 08/23/2021 16:03:04 COVID-19, mRNA, LNP-S, PF, 100 mcg/0.5mL dose or 50 mcg/0.25mL dose 1 completed THERESA Aguirre, [facility] 11/12/2022 15:49:26 COVID-19, mRNA, LNP-S, PF, 100 mcg/0.5mL dose or 50 mcg/0.25mL dose 1 completed THERESA Valverde, [facility] 08/23/2021 16:04:32 Influenza, MDCK, quadrivalent, PF 8 completed [facility]A [facility] 10/09/2021 14:09:10 Influenza, split virus, quadrivalent, PF 1 completed TH[facility]ESA [facility] 10/09/2021 14:09:10 Influenza, split virus, quadrivalent, PF 0 completed THERESA [facility] 10/09/2021 14:09:10 Influenza, split virus, quadrivalent, PF 7 completed THERESA [facility] 10/09/2021 14:09:10 COVID-19, mRNA, LNP-S, PF, 100 mcg/0.5mL dose or 50 mcg/0.25mL dose 1 completed THERESA Aguirre, [facility] 11/12/2022 15:49:26 COVID-19, mRNA, LNP-S, PF, 100 mcg/0.5mL dose or 50 mcg/0.25mL dose 1 completed THERESA Waddell, [facility] 10/05/2022 15:56:09 Tdap 5 completed THERESA Waddell, [facility] 10/05/2022 15:55:08 COVID-19, mRNA, LNP-S, PF, 100 mcg/0.5mL dose or 50 mcg/0.25mL dose 1 completed THERESA Waddell, [facility] 10/05/2022 15:56:09 Influenza, split virus, quadrivalent, PF 3 completed THERESA Waddell, [facility] 09/20/2023 10:06:53 Influenza, split virus, trivalent, PF 4 completed THERESA Valverde, [facility] 06/18/2024 11:23:29 Tdap 7 completed Not Available [facility] 02/16/2014 14:00:18 Novel [id number] , all formulations 0 completed Not Available [facility] 02/16/2014 14:00:18 Influenza, split virus, trivalent, preservative 0 completed Not Available [facility] 02/16/2014 14:00:18 Influenza, split virus, trivalent, preservative 1 completed Not Available [facility] 02/16/2014 14:00:18 Influenza, split virus, trivalent, preservative 3 completed Not Available [facility] 02/16/2014 14:00:18 Past Encounters Encounter ID Performer Location Encounter Start Date Encounter Closed Date Diagnosis/Indication Diagnosis SNOMED-CT Code Diagnosis ICD10 Code Diagnosis IMO Codes Diagnosis Note [id number] [facility] [address] [facility] [place] [address] 03/27/2005 00:00:00 [id number] auto[facility]Comm erce [address] [facility] [address] [place] [address] 03/11/2006 00:00:00 [id number] auto[facility] erce [address] [facility] [place] [address] 03/20/2006 00:00:00 [id number] auto[facility] erce [address] [facility] [place] [address] 11/25/2006 00:00:00 [id number] [place] [address] 02/27/2007 00:00:00 [id number] [facility] [facility] [address] [place] [address] 03/26/2007 00:00:00 [id number] autoEComm erce [address] [facility] [address] [address] [place] [address] 05/29/2007 00:00:00 [id number] auto[employer]Comm erce [address] [facility] [address] [place] [address] 08/29/2007 00:00:00 [id number] autoEComm erce [address] [facility] [address] [address] [place] [address] 12/03/2007 00:00:00 [id number] auto[facility]Comm erce [address] [facility] [address] [place] [address] 04/21/2008 00:00:00 [id number] auto[facility] erce [address] [facility] [place] [address] 08/18/2008 00:00:00 [id number] auto[facility]Comm erce [address] [facility] [address] [place] [address] 11/17/2008 00:00:00 [id number] auto[facility]Comm erce [address] [facility] [address] [place] [address] 12/07/2008 00:00:00 [id number] auto[facility]Comm erce [address] [facility] [address] [place] [address] 12/23/2008 00:00:00 [id number] autoEComm erce [address] [facility] [address] [place] [address] 02/16/2009 00:00:00 [id number] autoEComm erce [address] [facility] [address] [place] [address] 08/24/2009 00:00:00 [id number] autoEComm erce [address] [facility] [address] [address] [place] [address] 01/06/2010 00:00:00 [id number] autoEComm erce [address] [facility] [address] [address] [place] [address] 03/02/2010 00:00:00 [id number] auto[facility]Comm erce [address] [address] [place] [address] 09/07/2010 00:00:00 [id number] autoEComm erce [address] [place] [address] 12/01/2010 00:00:00 [id number] autoEComm erce [address] [facility] [address] [address] [place] [address] 03/02/2011 00:00:00 [id number] autoEComm erce [address] [facility] [address] [address] [place] [address] 03/08/2011 00:00:00 [id number] autoEComm erce [address] [facility] [address] [address] [place] [address] 05/16/2011 00:00:00 [id number] autoEComm erce [address] [facility] [address] [place] [address] 09/10/2011 00:00:00 [id number] autoEComm erce [address] [facility] [address] [place] [address] 06/19/2012 00:00:00 [id number] autoEComm erce [address] [facility] [place] [address] 09/06/2012 00:00:00 [id number] autoEComm erce [address] [facility] [place] [address] 10/23/2012 00:00:00 [id number] autoEComm erce [address] [facility] [address] [address] [place] [address] 11/10/2012 00:00:00 [id number] autoEComm erce [address] [facility] [place] [address] 03/11/2013 00:00:00 [id number] autoEComm erce [address] [place] [address] 06/08/2013 00:00:00 [id number] auto[employer]Comm erce [address] [address] [place], [place] [address] 07/03/2013 00:00:00 [id number] autoEComm erce [address] [place], [place] [address] 08/31/2013 00:00:00 [id number] autoEComm erce [address] [place], [place] [address] 11/12/2013 00:00:00 [id number] autoEComm erce [address] [place], [place] [address] 12/23/2013 00:00:00 [id number] Ryanne moreland MD Main Office [address] [place] [address] 11/17/2014 15:16:33 11/17/2014 16:00:33 Adult health examination [id number] pap is utd, pt is trying to be active Low back pain [id number] on going, will see provider at [facility], has tried PT [id number] OJRI Peraza Main Office [address] [place] [address] 01/21/2015 10:50:06 01/21/2015 11:36:38 Acute sinusitis 32700034 Migraine 50782083 sinusiti s triggering her migraines. she will take another imitrex when she gets home. [id number] Ryanne moreland MD Main Office [address] [place] [address] 02/17/2015 15:50:13 02/17/2015 16:17:37 Low back pain [id number] ongoing, will see provider at [facility], has tried PT [id number] Dino Baez MD Main Office [address] [place] [address] 03/12/2015 08:56:14 03/12/2015 09:54:46 Pain of hip region 52327973 Recent imaging suggestive of avascular necrosis. Unable to take more NSAIDS because of migraine triggers. Will use narcotic for short term as needed pain control while awaiting MRI and orthopedic eval. [id number] Dino Baez MD Main Office [address] [facility] [address] [place] [address] 04/07/2015 08:03:47 04/07/2015 08:36:33 Acute sinusitis 15823475 Recurrent issue, likely triggered by allergic inflammati on based on history and exam findings. Will treat for secondary bacterial process based on duration of symptoms. Call inb/worse over next 5-7 days as different abx vs short course of prednisone may be warranted. Allergic rhinitis [id number] Try managing with topical steroid, sinus irrigation and decongesta nt. If effective drainage not obtained short course of oral steroid may need to be considered . [id number] Ryanne moreland MD Main Office [address] [address] [place] [address] 06/29/2015 12:33:23 06/29/2015 13:45:13 Low back pain 311324646 M54.5 ongoing, pt is very frustrated and her quality of life is affected, unable to carry her kids, she is followed by pain management and is not getting any better, she is asking for me to talk to them about the next step. 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 Pt is dizzy, BP has been elevated last night and today, feels winded. BP in office 182/89, pulse of 100. o2 sat 98%. EKG with concern for anterior infarct with poor R wave in Vs when compared to past EKG from 11.4.13, repeated 3 times. PT to ER by ambulance to get evaluation , concern for Pulmonary embolism or cardiac event. History of malignant lymphoma 854426380 Z85.79 dx 1995 Osteonecrosis of hip 444 311046 M87.859 [id number] Odette Joya PA-C Main Office [address] [facility] [address] [facility] [place] [address] 04/22/2018 15:04:08 04/22/2018 16:07:07 Essential hypertension 49026100 I10 Start HCTZ 25 mg daily. Continue testing BP at wk and home. REturn for recheck on 04/29. Pain in calf 375876064 M 79.662 R/o DVT. Ultrasoun scheduled for later today. At [facility] ed risk for cardiovascular event 396218920 Z91.89 High cardiac risk . Will set up for stress echo. 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 Family his tory of cardiac disorder 241837761 Z82.49 father with an [place] at 40 [id number] Odette Joya PA-C Main Office [address] [place] [address] 06/17/2018 11:18:23 06/17/2018 12:14:16 Dysuria 69956812 R30.0 Blood in urine 54485632 R31.9 [id number] Ryanne moreland MD Main Office [address] [facility] [address] [place] [address] 07/14/2018 13:49:44 07/14/2018 14:45:47 Essential hypertension 29043537 I10 BP controlled on current treatment, will have her see nephrology for consult due to age. Lab today. Pt with a hx of preeclamps ia and then presented with accelerate d htn, hctz has controlled BP very well and feels much better on med, father with htn, refer to renal due to age, hx of preeclamps ia Migraine 97954186 G43.90 9 better, less often, controlled on meds, follows with neuro Pain of hip region 13997 002 M25.559 stable, continue exercise program [id number] Ryanne moreland MD Main Office [address] [facility] [address] [place] [address] 11/14/2018 14:47:56 11/14/2018 15:44:56 Essential hypertension 18819655 I10 followed by renal, hx of preeclamps ia Pain of hip region 10172 002 M25.552 stable, continue exercise program Diverticul itis of colon 873814037 K57.32 presumed first case of diverticul itis, will treat empiricall y and get CT scan to rule out other entity, unlikely any complicati on (abscess.. ) therefore ok if CT is in a few days due to scheduling /insurance approval, continue tx. [id number] Ryanne moreland MD Main Office [address] [place] [address] 05/11/2019 15:16:55 05/11/2019 16:15:59 Adult health examination 420696514 Z00.00 pap is utd Screening for malignant neoplasm of breast 730186033 Z12.39 pt to arrange Migraine 83658055 G43.90 9 just started monthly injecitons for suppressio n History of malignant lymphoma 941096168 Z85.79 dx 1995 goes to cancer once a year, gets blood work Osteonecrosis of hip 444 746945 M87.851 M87.852 rarely bother her if she keeps exercising and stretching . Essential hypertension 96753152 I10 followed by renal, hx of preeclamps ia well controlled Female uri nary stress incontinence 06295413 N39.3 new issue raised by pt, ongoing, quite bothersome , recc referral to urogynecol dhaval, needs urodynamic s and possible meds or bladder suspension [id number] Ryanne moreland MD Main Office [address] [facility] [address] [place] [address] 10/05/2019 14:03:41 10/05/2019 14:54:03 Female urinary stress incontinence 46357200 N39.3 had a successful surgery with bladder suspension , she has no further incontinen ce very pleased History of malignant lymphoma 363164498 Z85.79 dx 1996 goes to cancer once a year, gets blood work Dr Browne follows annually Essential hypertension 78583107 I10 followed by renal, hx of preeclamps ia well controlled Hypercholesterolemia 136 71790 E78.00 fasting History of breast biopsy with benign finding 4967259499 71960 Z98.890 on right marker left, no concerns [id number] Ryanne moreland MD [facility] [address] [facility] [address] [place] [address] 03/22/2020 13:06:06 03/23/2020 07:41:07 Essential hypertension 89369715 I10 BP well controlled , continue meds Migraine 65851698 G43.90 9 just started monthly injecitons for suppressio n. migraines are much less common and less intense [id number] Ryanne moreland MD Main Office [address] [facility] [address] [place] [address] 05/31/2021 15:33:38 06/01/2021 09:03:27 Hypokalemia 86852718 E87.6 stop hctz likely causing this, can also stop potassium as she will be starting ACEI Atypical chest pain 1025 78462 R07.89 ekg normal, likely GI episode with vasovagal sx. Pt had stress test a few years ago, prefers to monitor sx with med changes to see if better. Will call if has any further episodes. Essential hypertension 19266865 I10 stop hctz and potassium, will start lisinopril 5 mg daily. Pt to do labs a week or two after starting and followup in a month. She will monitor BP at home. [id number] Ryanne moreland MD Main Office [address] [facility] [address] [place] [address] 08/23/2021 15:51:43 08/23/2021 16:52:13 Essential hypertension 84540953 I10 BP is well controlled continue meds Osteonecrosis of hip 444 995548 M87.851 rarely bother her if she keeps exercising and stretching . Neck pain 11486348 M54.2 see hpi, injury 01/23 pt to do PT and heat, trial of low dose flexeril Migraine 82443683 G43.90 9 is on nortryptyl ine and injections , they are helpful [id number] Ryanne moreland MD Main Office [address] [facility] [address] [place] [address] 10/09/2021 13:56:30 10/09/2021 15:04:48 Pain of toe of left foot 5699878075 23222 M79.675 Likely covid toes, keep feet as warm as possible, wear shoes or slippers, elevate feet, topical steroid not helpful, would try gabapentin at night for aching pain. Vascular appt due to underlying condtion of neuropathy , decreased capillary refill. History of SARS-CoV-2 29 11492138 91997788 Z86.16 likely covid toes , will have her seen by vascular due to underlying neuropathy and poor circulatio n from previous chemothera py. Pt to call if any worseing sx. Called podiatry they do no see people with this condition. Call in to ID to see if any other options for treatment are available [id number] Ryanne moreland MD Main Office [address] [facility] [address] [place] [address] 01/12/2022 15:22:23 01/12/2022 16:03:17 Adult health examination 160030193 Z00.00 pap is utd as is mammogram. is active Essential hypertension 24767534 I10 BP is well controlled continue meds Migraine 55689592 G43.90 9 on injections , very helpful Neck pain 95600162 M54.2 muscle spasm, no injury use as needed avoid alcohol with muscle relaxer [id number] ABBEY KURTZ MD Main Office [address] [facility] [address] [facility] [place] [place] [address] 09/17/2022 10:52:23 09/17/2022 11:27:11 Upper abdominal pain 08246084 R10.10 - pain located in the left upper and lower quadrant- could be related to patients' recent use of stool softeners and miralax for which patient was advised to stop- pt has been having regular bowel movements since Saturday therefore do not believe pain is from constipati on, ordered an abdominal x-ray for further evaluation - due to pain being located on the left side ordered lipase- ordered a BMP to check calcium levels, was mildly elevated on previous blood work- ordered hepatic function panel- cbc was ordered to check white blood cell count- if no improvemen t will order a CT scan to ensure no diverticul itis/diver ticulosis Gastroesop hageal reflux disease 396774490 K21.9 - pt has a history of GERD currently being controlled with lifestyle modificati on- will do a short trial of famotidine and taper off- if no improvemen t with famotidine will switch to omeprazole Counselled on:The following lifestyle changes are recommende d and counseled : -Losing weight: Losing weight helps people who are overweight to reduce acid reflux. -Raising the head of your bed six to eight inches -Avoiding foods that trigger symptoms Avoid excessive caffeine, chocolate, alcohol, peppermint , and fatty foods. [id number] Ryanne moreland MD Main Office [address] [facility] [address] [facility] [place] [address] 10/05/2022 15:52:46 10/05/2022 16:15:33 Essential hypertension 82889067 I10 BP is well controlled continue meds Abdominal pain 97441565 R10.9 to see GI, I asked to check on appt [id number] Dino Baez MD Main Office [address] [facility] [address] [place] [address] 11/12/2022 15:23:59 11/12/2022 16:44:30 Sprain of ligament of metatarsophalangeal joint of great toe 745792608 S93.522A x > 2 wks - seen by [facility] [place] - 'turf toe' - negative xrays - still has edema/tend erness/jj thema - but not warm, so doubt gout - will get internet marketing specialist carlo arce, trial c diclofenac [id number] ABBEY KURTZ MD Main Office [address] [facility] [address] [facility] [id number] 02/07/2023 13:27:41 02/07/2023 14:21:13 Adult health examination [id number] Z00.00 Health Maintenanc e FemaleA) Patient was counseled on healthy diet, exercise and nutrition due to BMI of 23.8 B) ScreeningL ast Mammogram: start at age 50 stop at 74Date: 08/13/2022 Result: BIRADS-2Ne xt: 08/2023 Last Pap smear: start at age 21 to age 65Date: Results : ???Next: will get records Last Colonoscop y: start at age 45-75Date: Result: Next: will undergo with GI (EGD and colonoscop y this year) Last DEXA scan:Date: due at 65Result: ??? C) Vaccines:I nfluenza: not this yearTdAP: 04/05/2015 Zoster: due at 11FGT16: due at 53JYVD52: due at 17MKN79:PC V15:COVID: 08/10/2020 , 09/07/2020 , 06/09/2021 D) Routine blood work orderedE) Updated patient's history RTC in one year for annual exam or sooner if any acute complaints Essential hypertension 12695396 I10 - at goal- BP today 112/73- c/w lisinopril 5mg QD Pt counselled on:-Dietar y Approaches to Stop Hypertensi on (DASH) is an eating plan rich in fruits, vegetables , whole grains, fish, poultry, nuts, legumes, and low-fat dairy. These foods are high in mishra nutrients such as potassium, magnesium, calcium, fiber, and protein.-A dvised continued adherence to medication s and low salt diet - extensive counsellin g done regarding dietary habits.-En couraged regular aerobic exercise 30 min for 4-5 x week.-BP monitoring at home advised to bring log at every visit-Side -effects of high BP can cause Stroke, Heart attack and even d/w pt-D/w pt when to call 911 or reach out to Health care provider:> Think you are having a reaction to a medicine you are taking.>Alcala ve headaches that keep coming back (recurring ).>Feel dizzy.>Hav e swelling in your ankles.>Alcala ve trouble with your vision. 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 Migraine 95892658 G43.90 9 - chronic migraine without aura and tension type headaches. - Continue limiting caffeine products to no more than 2 cups/day.- pt advised to keep headaches diary m- c/w Emgality 120 mg/mL monthly subcu injections , prescribed by neuro- c/w naratripta n 2.5 mg, 1 to 2 tablets daily as needed for breakthrou gh migrainous headache- c/w Zofran 4 mg as needed for nausea related to migraine headaches. - last seen by neuro 09/2022 Fatigue 31732238 R53.83 Z00.00 Hyperlipidemia 72299015 E78.5 Z00.00 Hepatitis C screening 39 3063202 Z11.59 Sprain of ligament of metatarsophalangeal joint of great toe 162666810 S93.522A - x-ray 10/27 was normal- pt underwent MRI with ortho and was normal as per patient, will try to get the result- pt was also placed in a walking boot for a period of time- pt was referred to podiatry for further evaluation and second opinion [id number] Robbie Luevano MD Main Office [address] [facility] [address] [facility] [place] [address] 09/20/2023 09:54:40 09/20/2023 10:36:02 Pain of right ankle joint [id number] 0888406 M25.571 will check XR and refer to orthopedic s. Sx for 5 months and triggered by specific motions/ movements. ? partial tear. seh declines PT for now, she has been doing home PT on her won. takes naproxen as needed. Pain in ri ght lower limb [id number] M79.604 pain radiates up to left lateral leg into her knee. [id number] ABBEY KURTZ MD Main Office [address] [facility] [address] [facility] [place] [address] 03/20/2024 15:00:18 03/20/2024 15:40:53 Adult health examination [id number] Z00.00 Health Maintenanc e FemaleA) Patient was counseled on healthy diet, exercise and nutrition due to BMI of 23.9 B) ScreeningL ast Mammogram: start at age 50 stop at 74Date: 08/14/2023 Result: BIRADS-2Ne xt: 08/2024 Last Pap smear: start at age 21 to age 65Date: Results : ???Next: will have this year, 03/31/2024 Last Colonoscop y: start at age 45-75Date: 03/13/2023Re sult: normalNext : 10 years Last DEXA scan:Date: due at 65Result: ??? C) Vaccines:I nfluenza: 05/24/2023 TdAP: 04/05/2015 Zoster: due at 87KBQ39: due at 76CRMM05: due at 25OVT44:PC V15:COVID: 08/10/2020 , 09/07/2020 , 06/09/2021 D) Routine blood work orderedE) Updated patient's history RTC in one year for annual exam or sooner if any acute complaints Essential hypertension 14082615 I10 - at goal- BP today 124/73- c/w lisinopril 5mg QD Pt counselled on:-Dietar y Approaches to Stop Hypertensi on (DASH) is an eating plan rich in fruits, vegetables , whole grains, fish, poultry, nuts, legumes, and low-fat dairy. These foods are high in mishra nutrients such as potassium, magnesium, calcium, fiber, and protein.-A dvised continued adherence to medication s and low salt diet - extensive counsellin g done regarding dietary habits.-En couraged regular aerobic exercise 30 min for 4-5 x week.-BP monitoring at home advised to bring log at every visit-Side -effects of high BP can cause Stroke, Heart attack and even d/w pt-D/w pt when to call 911 or reach out to Health care provider:> Think you are having a reaction to a medicine you are taking.>Alcala ve headaches that keep coming back (recurring ).>Feel dizzy.>Hav e swelling in your ankles.>Alcala ve trouble with your vision. 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 - Continue limiting caffeine products to no more than 2 cups/day.- pt advised to keep headaches diary m- c/w Emgality 120 mg/mL monthly subcu injections , prescribed by neuro- c/w naratripta n 2.5 mg, 1 to 2 tablets daily as needed for breakthrou gh migrainous headache- c/w Zofran 4 mg as needed for nausea related to migraine headaches. - last seen by neuro 10/2023 Fatigue 64433130 R53.83 Z00.00 Hyperlipidemia 08117664 E78.5 Z00.00 FASTING Screening for malignant neoplasm of cervix 318081170 Z12.4 Herpes labialis 2821255 B00.1 - pt has had 4 recurrent episodes within the year- will start on ppx- RTC in 3 months HIV screen ing declined [id number] 82566 Z53.20 [id number] ABBEY KURTZ MD Main Office [address] [place] [address] 06/18/2024 11:05:50 06/18/2024 12:18:04 Allergic rhinitis 46404455 J30.9 - pt follows with allergy, get shots- c/w flonase and keshawn OTC- taking benadryl as needed Herpes labialis 9636016 B00.1 - pt has had 4 recurrent episodes within the year- c/w ppx therapy- RTC in 3 months Dry cough 70584193 R05.9 - pt has been having a dry cough for over 5 months- pt does have a hx of allergies however under control with allergy shots- pt advised to stop lisinopril as it has dry cough as an AE- ordered chest x-ray> if negative to proceed with CT scan- ordered PFT- will hold starting a new inhaler at this time as it did not provide relief [id number] Dino Baez MD Main Office [address] [place] [address] 08/13/2024 14:47:34 08/13/2024 15:40:01 Essential hypertension 40045954 I10 pt off acei d/t dry cough (resolved) since 11.24bp going back upwill initiate arb - losartan 50mg qhscont to monitor bp - if too low, then cut in 1/2 = 25mg [id number] Dino Baez MD Main Office [address] [place] [address] 10/12/2024 08:53:47 10/12/2024 09:55:04 Pain in bilateral feet [id number] 7608469 M79.672 has had x ~ 3 yrs p covid infxn - seen by vascular 4.22 - ? covid toe ? crps ? other - chilbain's , raynaud'sw ill get rheum eval meanwhile, see below:as per online - Treatment For chilblains , keep the affected area warm and dry, and avoid clothing that rubs For Raynaud's, calcium channel blockers can help Essential hypertension 14616906 I10 pt off acei d/t dry cough (resolved) since 11.24bp going back upwill initiate arb - losartan 50mg qhscont to monitor bp - if too low, then cut in 08/06 = 25mg 3.25 - bp stable lately on losartan 50mg, but in light of above sxs - will change to amlodipine 2.5mg --- stop losartan [id number] ABBEY KURTZ MD Main Office [address] [facility] [address] [facility], [place] [address] 11/12/2024 14:29:56 11/12/2024 14:54:04 Essential hypertension 38428709 I10 - elevated- BP today 135/88 and on repeat 146/87- home BP is less than 130/80- tried:> lisinopril caused chronic cough> losartan caused hypotensio n- c/w amlodipine 2.5mg QD- pt will take her BP at home for one week and send readings to . if still elevated will increase amlodipine Pt counselled on:-Dietar y Approaches to Stop Hypertensi on (DASH) is an eating plan rich in fruits, vegetables , whole grains, fish, poultry, nuts, legumes, and low-fat dairy. These foods are high in mishra nutrients such as potassium, magnesium, calcium, fiber, and protein.-A dvised continued adherence to medication s and low salt diet - extensive counsellin g done regarding dietary habits.-En couraged regular aerobic exercise 30 min for 4-5 x week.-BP monitoring at home advised to bring log at every visit-Side -effects of high BP can cause Stroke, Heart attack and even d/w pt-D/w pt when to call 911 or reach out to Health care provider:> Think you are having a reaction to a medicine you are taking.>Alcala ve headaches that keep coming back (recurring ).>Feel dizzy.>Hav e swelling in your ankles.>Alcala ve trouble with your vision. [id number] ABBEY KURTZ MD Main Office [address] [facility] [address] [facility] [place] [address] 03/26/2025 08:26:37 03/26/2025 09:04:28 General examination of patient [id number] Z00.00 [id number] Health Maintenanc e FemaleA) Patient was counseled on healthy diet, exercise and nutrition due to BMI of 24.6 B) ScreeningL ast Mammogram: start at age 50 stop at 74Date: 09/03/2024 Result: BIRADS-2Ne xt: 08/2025 Last Pap smear: start at age 21 to age 65Date: 11/30/2022R esults: HPV negative, no atypical cellsNext: 5 years (will have 05/2025) Last Colonoscop y: start at age 45-75Date: 03/13/2023Re sult: normalNext : 10 years Last DEXA scan:Date: due at 65Result: ??? C) Vaccines:I nfluenza: 06/01/2024 TdAP: 04/05/2015 -> 04/2025Zost er: due at 12VDZ50: due at 49YFKU81: due at 22YXJ84:PC V15:COVID: 08/10/2020 , 09/07/2020 , 06/09/2021 D) Routine blood work orderedE) Updated patient's history RTC in one year for annual exam or sooner if any acute complaints Essential hypertension 90026699 I10 - at goal- BP today 118/81- home BP is less than 120/80- tried:> lisinopril caused chronic cough> losartan caused hypotensio n- c/w amlodipine 2.5mg QD Pt counselled on:-Dietar y Approaches to Stop Hypertensi on (DASH) is an eating plan rich in fruits, vegetables , whole grains, fish, poultry, nuts, legumes, and low-fat dairy. These foods are high in mishra nutrients such as potassium, magnesium, calcium, fiber, and protein.-A dvised continued adherence to medication s and low salt diet - extensive counsellin g done regarding dietary habits.-En couraged regular aerobic exercise 30 min for 4-5 x week.-BP monitoring at home advised to bring log at every visit-Side -effects of high BP can cause Stroke, Heart attack and even d/w pt-D/w pt when to call 911 or reach out to Health care provider:> Think you are having a reaction to a medicine you are taking.>Alcala ve headaches that keep coming back (recurring ).>Feel dizzy.>Hav e swelling in your ankles.>Alcala ve trouble with your vision. 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 - Continue limiting caffeine products to no more than 2 cups/day.- pt advised to keep headaches diary m- c/w Emgality 120 mg/mL monthly subcu injections , prescribed by neuro- c/w naratripta n 2.5 mg, 1 to 2 tablets daily as needed for breakthrou gh migrainous headache- c/w Zofran 4 mg as needed for nausea related to migraine headaches. - last seen by neuro 10/2023 Female clint guzmán stress incontinence 59442542 N39.3 - s/p procedure 10 years ago- does have intermitte nt urgency- does kegel exercises Fatigue 06422673 R53.83 Z00.00 Hyperlipidemia 77822577 E78.5 Z00.00 FASTING Erythromelalgia 03127083 I73.81 4091 - pt is following with rheumatolo gy for this, last seen on 02/11/2025- recommende d ASA 325mg- located in her feet and toes, worse in winter Gastroesop hageal reflux disease 811876790 K21.9 - pt has a history of GERD currently being controlled with lifestyle modificati on- pt was seen GI on 12/2022 recommende d to continue famotidine and will undergo EGD- c/w famotidine 20mg BID Counselled on:The following lifestyle changes are recommende d and counseled :-Losing weight: Losing weight helps people who are overweight to reduce acid reflux.-Ra ising the head of your bed six to eight inches-Lenin iding foods that trigger symptoms Avoid excessive caffeine, chocolate, alcohol, peppermint , and fatty foods. Persistent cough 4995330 02 R05.3 588645 - this has been a chronic intermitte nt problem- originally from lisinopril and improved when medication stopped- has been present again since Spring 2024 and patient believes its from amlodipine > MD does not completely agree with this as its a side effect of the medication - taking treatment for GERD and allergies therefore low likelihood to be the cause- suggested PFT testing however patient wants to have this during winter time Health Concerns Section Related Observation LastModified by Organization Detai ls LastModified Time None Recorded Concern Status LastModified by Organization Details LastModified Time None Recorded Advance Directives Directive None Recorded Payers Insurance Date Sequence Insurance Name Policy Number Policy Dominique Covered Member ID Dominique Member ID Guarantor Name 04/12/2025 1 [employer] (PPO) [id number] Heron Natarajan [id number] Kaci Natarajan 06/17/2024 1 [employer] [id number] Heron Natarajan [id number] Kaci Natarajan Notes Date Note Type Note Provider Name and Address Organization Details Recorded Time 06/18/2024 text/html CoughReported by PatientHPIFor quality, patient reportsharsh. For context, patient reportsworse at nightanduse of isabel inhibitorbut reportsnon-smoker. For associated symptoms, patient reportsheartburn (on famotidine)andpost nasal drip (not currently, history of)but reportsno fever,no chills,no chest pain,no nausea,no vomiting,no edema,no agitation, andno wheezing. For duration, patient reportsintermittent.RO S as noted in the HPI Kaci Natarajan is a 43 year old F who was seen over for (1) follow-up on number of herpes episodes after started suppression therapy and (2) to continuous of feeling a tickle at the back her throat. Dry cough: pt mentions that since January she has been having a dry cough and tickle in her throat. Pt does have a history of postnasal drip however patient mentions that this different. Worse at night before bed. Continues with allergy shots. She is taking xyzal nightly. Pt was given an inhaler (wixela) however it did not provide any improvement so patient stopped medication. ABBEY KURTZ MD [address] [facility] [address], [place], [address], [facility] [place] 06/18/2024 12:14:46 08/13/2024 text/html Hypertension F/UReported by PatientHPIFor associated symptoms, patient reportsno dizziness,no lightheadedness,no chest pain,no shortness of breath,no palpitations,no edema, andno calf pain with exertion. For lifestyle, patient reportsregular exerciseandlimiting/av oiding salt. Patient with Hx of HTN, had been placed on Lisinopril and been taken approx for 4 years, than within this past year developed terrible cough. Patient advised to stop medication back this past June and she has slowly notice blood pressure readings creeping back up. Yesterday reading at 145/100. Patient would like to discuss starting new medication her dry cough resolved, but her bp going back up though Prasanna Joya PA-C [address], [place], [address], [facility] 08/13/2024 20:09:52 10/12/2024 text/html Swelling in toes bc of Covid? See pt case. I came into the office back in 10/2021 regarding toe pain. 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 After getting Covid back in 2021, 2Months later my toes began to swell and could barely walk. Came in to see doctor and referred me to vascular. Nothing found and said it was Covid toes nothing could do about it. Well it flared up again and having severe pain walking or if i hit my toe or putting on shoes. Is there anything I can take other than Aleeve/tylenol not helping. Warm foot soaks not helping as toes are warm to touch and feet are freezing. Any help or recommendation. Toes red puffy and purple on sides of toes. reviewed last vascular note 4.15.22 - printed, handed to ptfol by neuro for migraines - reviewed last ov note 8.23 - pt states neuro did not have any further input x keeping foot warmrev podiatry note 9.1.23 now has this in B feet - worse a few weeks ago - took a few weeks to get closer back to normal - used lidocaine roll on Prasanna Joya PA-C [address] [address], [place], [address], [facility] 10/12/2024 09:58:32 11/12/2024 text/html Hypertension F/UReported by PatientHPIFor associated symptoms, patient reportsno dizziness,no lightheadedness,no chest pain,no shortness of breath,no palpitations,no edema, andno calf pain with exertion. For lifestyle, patient reportsregular exerciseandlimiting/av oiding salt. For medications, patient reportstaking medications as directedandno side effects from medication.mentions bp at home is less than 130/80 Kaci Natarajan is a 44 year old F who presents to the clinic for a blood pressure check. Lisinopril was stopped due to complaints of a cough. Pt was also tried on losartan however caused low BP. As a result the medication was switched to amlodipine. Pt mentions that she believes she suffering from clovis-menopausal symptoms. Having night sweats, bloating, anxiety and trouble sleeping. ABBEY KURTZ MD [address], [address], [facility] 11/12/2024 14:56:34 03/26/2025 text/html Generic HPI TemplateReported by Patient Kaci Natarajan is a 44 year old F who presented to the clinic for her annual exam. Pt denies any emergency rooms visits or hospital visits in the last year. Complaints: continues to ahve dry cough Is not using ASA.OTC/Herbal supplements use: MMV, probiotic, vitamin b12, ashwaganda, collagen-peptide Gynecologic HistoryNo spottingSexually active: yes with husbandContraception: IUD (liletta- 3 more years before changing)+ abnormal paps, pt had a LEEPDenies cysts, stds, fibroids Obstetric HistoryGravida: 2Para: 2AB: 0Livin (vaginal)Complications : none Drug use: neverEtoh use: sociallytobacco use: neverspf/derm: yes Dental: twice a yearEye: once a year (wears glasses and contacts)Diet: regularActivity: stationary bike BABEY KURTZ MD [address] [address], [place], [phone], [facility] 03/26/2025 09:25:16 OBGyn Episode No OBEpisode recorded.
--- OUTSIDE RECORDS SUMMARY | 2025-05-10 18:01 | XMS_ITS | Clinical Summary ---
Author Organization [facility] Address [address] [place], [place] [id number] Phone Care Team Providers Care Executive Account Manager Name Role Phone Abbey Kurtz MD Primary Care Provider [phone] Social History Tobacco Use Types Packs/Day Years [...] PPO CIGNA PPO CIGNA PPO Care Teams Executive Account Manager Relationship Specialty Start Date End Date Abbey Kurtz MD [address] [address] PCP - General Family Medicine 03/13/23 Additional Source Comments The information contained in this document represents components of the legal health record. It is not the complete legal health record.[facility]
== END 2025-05-10 15:43 | disposition home or self-care (01) ==
LOC: HO.HMGAL 15:41
PROVIDERS: PCP Student in an Organized Health Care Education/Training Program; Visit Provider Registered Nurse Emergency
DX: J30.89 Other allergic rhinitis (principal)
CPT/HCPCS: 95117; 95165

== ENCOUNTER 2025-05-31 15:44 | Outpatient (AMB) | payer OTHER, SELFPAY ==
--- OUTSIDE RECORDS SUMMARY | 2025-05-31 18:46 | XMS_ITS | Clinical Summary ---
Author Organization [facility] Address [address] [place], [place] [id number] Phone Care Team Providers Care [employer] Packages Sealer Name Role Phone Abbey Kurtz MD Primary [...] PPO CIGNA PPO CIGNA PPO Care Teams Semiconductor Packages Sealer Relationship Specialty Start Date End Date Abbey Kurtz MD [address] [address] PCP - General Family Medicine 03/13/23 Additional Source Comments The information contained in this document represents components of the legal health record. It is not the complete legal health record.[facility]
--- OUTSIDE RECORDS SUMMARY | 2025-05-31 18:46 | XMS_ITS | Data Portability ---
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 Patient consented to video & audio visit Patient was located in the [facility]. Provider was located in the office. [...] serum 2024 025 [facility], [address] [place], [address], 03/26/2025 08:58:36 CBC w/ auto diff 2024 025 [facility], [address] [place], [address], 03/26/2025 08:58:36 TSH, ultra- sensit ritika, serum 2024 025 [facility], [address], [place], [address], 03/26/2025 08:58:36 BMP, serum or plasma 2024 025 [facility], [address], [place], [address], 03/26/2025 08:58:[address] referr al 2024 025 [facility], [address] [place] [address], [id number], 11/09/2024 10:38:23 Procedures None record ed. Surgeries None record ed. Imaging XR, chest, 2 view 2023 024 Not available 06/26/2024 15:28:25 Medication Orders famoti dine 20 mg tablet 2024 025 [facility] #[id number], [address] [place] [address], [id number], 03/26/2025 09:20:44 amlodi pine 2.5 mg tablet 2024 025 [id number], [address] [place] [address], [phone], 10/12/2024 09:51:35 losart an 50 mg tablet 2024 025 [facility] #[id number], [address] [place] [address], [id number], 10/12/2024 09:44:42 Patient Targets Encounter Date Encounter Id Patient Goals Patient Target Last Modified By Organization Details Last Modified Time 08/13/2024 [id number] senior living goal of Blood Pressure 140 / 90 Not available Not available Not available terminal gauger goal of Exercise level Not available Not available Not available senior living goal of Tobacco Smoking Status Not available Not available Not available 08/13/2024 [id number] Pt advised and agrees to eat a [...] By Organization Details Last Modified Time 06/18/2024 [id number] allergies: care instructions Not available 06/18/2024 12:11:57 cold sores: care instructions Not available 06/18/2024 12:11:57 pulmonary function test* lmulerovalle Not available 07/16/2024 11:40:53 methacholine challenge* - to be done with pft testing lmulerovalle Not available 07/01/2024 11:36:23 08/13/2024 [id number] Medications (OTC, herbal therapies, supplements) reviewed and reconciled with patient and or caregiver, including potential side effects, drug interactions, instructions, and the consequences of not taking medication. Reviewed potential barriers to medication adherence, such as side effects from medication or cost of medication. pmadden Not available 08/13/2024 15:37:35 10/12/2024 [id number] Patient will follow up and keep appointment as scheduled. 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 WSN: [id number] Orderi ng Physic driss: Heriberto Monet Dictat ed By: Robert Ayers MD Dictat ed Date/T deborah: 2:33 pm Review ed By: Robert Ayers MD Signed By: Robert Ayers MD Signed Date/T deborah: 2:33 pm Transc ribed By: SHABBIR Transc ribed Date/T deborah: 2:31 pm Patila t Class: Outpat ient [facility] (Outpt Imaging) [address] , [place], [address], 06/26/2024 16:13:16 09/04/19 25 09/03/2024 MAMMO , scree lihca, digit al, bilat eral PROCED URE: MM [...] Lay letter mailed to christopher balderas WSN: [id number] Orderi ng Physic driss: Heriberto Monet Dictat ed By: Jose Raul Middleton MD Dictat ed Date/T deborah: 9:59 am Review ed By: Jose Raul Middleton MD Signed By: Jose Raul Middleton MD Signed Date/T deborah: 9:59 am Transc ribed By: CSB Transc riptio n Date/T deborah: 9:56 am Birads : Christopher balderas Class: Outpat ient [email or web address] [facility] (Outpt Imaging) [address] [place], [address], 09/04/2024 10:03:36 09/04/19 25 09/03/2024 MAMMO , scree licha, digit al, bilat eral No observ ation record ed. [facility] [address], [place], [address], 09/04/2024 10:14:10 Result Notes Documentation Provider Name [...] a cholecystectomy. IMPRESSION: No acute abnormality. WSN: [id number] Ordering Physician: Abbey Kurtz Dictated By: Robert Jarvis MD Dictated Date/Time: 06/26/24 2:33 pm Reviewed By: Robert Jarvis MD Signed By: Robert Jarvis MD Signed Date/Time: 06/26/24 2:33 pm Transcribed By: SHABBIR Transcribed Date/Time: 06/26/24 2:31 pm Patient Class: Outpatient ABBEY KURTZ MD [address], [address], [facility] 06/26/2024 16:10:30 Mammo, Screening, Digital, Bilateral [...] (Benign) Lay letter mailed to patient WSN: [id number] Ordering Physician: Abbey Kurtz Dictated By: Jose Raul Mojica MD Dictated Date/Time: 09/04/24 9:59 am Reviewed By: Jose Raul Mojica MD Signed By: Jose Raul Mojica MD Signed Date/Time: 09/04/24 9:59 am Transcribed By: SHABBIR Supervisor [employer] Date/Time: 09/04/24 9:56 am Birads: Patient Class: Outpatient Antonella tellez [facility] 09/04/2024 10:03:36 Problems Name Problem SNOMED Code Status Onset Date Resolution Date Notes Provider Name and Address Organization Details Recorded Time Low back pain 044661717 Active Ryanne tellez [facility] 5 20:03:23 Acute sinusiti s 15092844 Completed 01/25/2017 Ryanne Hathaway aniceto tellez [facility] 7 15:37:55 Pain of hip region 76505357 Completed 11/17/2018 Removal Reason: not specific Corrine Forte rosalinda [facility] 9 10:42:32 Osteonec rosis of hip 117864922 Completed 05/12/2019 Removal Reason: dx not specific Corrine Forte rosalinda [facility] 9 10:07:22 Acute conjunct ivitis 74243464 Completed 01/25/2017 Ryanne Hathaway aniceto tellez [facility] 7 15:38:37 Osteonec rosis of head of femur 633361038 Active osteonec rosis, did see a speciali st for discussi on of surgery, not yet a candidat e ABBEY KURTZ MD [address], [facility] [place], [address] , [facility] 3 14:01:31 Malignan t lymphoma (clinica l) Completed 199502/16/2014 DATE: 1995; STORY: S/P CHEMOTHE RAPY, IN REMISSIO N; IMPRESSI ON: NO FURTHER SURVEILL ANCE NEEDED, DOING GREAT; RECORDED 11/13/19 14 12:34PM BY ELMER SUH ON/ADDEN DUM Not Available [facility] 4 15:06:12 Malignan t lymphoma (clinica l) Completed 199503/15/2014 DATE: 1995; STORY: S/P CHEMOTHE RAPY, IN REMISSIO N; IMPRESSI ON: NO FURTHER SURVEILL ANCE NEEDED, DOING GREAT; RECORDED 11/13/19 14 12:34PM BY JOSE ALFREDO NELSON I ANNOTATI ON/ADDEN DUM Not Available [facility] 4 05:41:10 Generali zed abdomina l pain 982498702 Completed 200702/16/2014 IMPRESSI ON: I SPOKE WITH DR YECENIA MARRUFO, PT THERE WITH ABD PAIN, PANCREAT ITIS AND GALLSOTN ES AND DILATED CBD. WILL BE ADMITTED AND USE DR MILKA [facility]; RECORDED 04/21/20 08 8:12AM BY THERESA BOYLE ANNOTATI ON/ADDEN DUM Not Available [facility] 4 15:06:10 General examinat ion of patient Completed 200702/16/2014 IMPRESSI ON: PAP UTD, EXERCISE S, DOING WELL; RECORDED 04/21/20 08 8:12AM BY THERESA BOYLE ANNOTATI ON/ADDEN DUM Not Available [facility] 4 15:06:11 Generali zed abdomina l pain 834055382 Completed 200703/15/2014 IMPRESSI ON: I SPOKE WITH DR YECENIA MARRUFO, PT THERE WITH ABD PAIN, PANCREAT ITIS AND GALLSOTN ES AND DILATED CBD. WILL BE ADMITTED AND USE DR MILKA [facility]; RECORDED 04/21/20 08 8:12AM BY EFREM COLÓNATI ON/ADDEN DUM Not Available [facility] 4 05:41:09 General examinat ion of patient Completed 200703/15/2014 IMPRESSI ON: PAP UTD, EXERCISE S, DOING WELL; RECORDED 04/21/20 08 8:12AM BY THERESA BOYLE, ANNOTATI ON/ADDEN DUM Not Available [facility] 4 05:41:09 Knee pain Completed 200802/16/2014 IMPRESSI [...] THERESA BOYLE, ANNOTATI ON/ADDEN DUM Not Available [facility] 4 05:41:10 Diaper rash 45803095 Completed 200802/16/2014 RECORDED 11/18/19 09 9:58AM BY BRANDAN KAT MA, ANNOTATI ON/ADDEN DUM Not Available [facility] 4 15:06:11 Diaper rash 50278093 Completed 200803/15/2014 RECORDED 11/18/19 09 9:58AM BY BRANDAN KAT MA, ANNOTATI ON/ADDEN DUM Not Available [facility] 4 05:41:09 Influenz a vaccine needed 56643504196 06 Completed 201002/16/2014 DATE: 09/07/19 11; RECORDED 07/03/20 13 10:40AM BY GERMAIN BURR MA, ANNOTATI ON/ADDEN DUM Not Available [facility] 4 15:06:11 Influenz a vaccine needed 60287104430 06 Completed 201003/15/2014 DATE: 09/07/19 11; RECORDED 07/03/20 13 10:40AM BY GERMAIN BURR MA, ANNOTATI ON/ADDEN DUM Not Available [facility] 4 05:41:09 Elevated blood-pr essure reading without diagnosi s of hyperten ernie 804942924 Completed 201002/16/2014 IMPRESSI ON: 14BP'S AT HOME 120'S OVER 70'S, CONTINUE TO CHECK AT HOME, 6 MONTH FOLLOWUP ; RECORDED 12/02/19 11 10:53AM BY BRANDAN KAT MA, ANNOTATI ON/ADDEN DUM Not Available [facility] 4 15:06:11 Elevated blood-pr essure reading without diagnosi s of hyperten ernie 195924133 Completed 201003/15/2014 IMPRESSI ON: 14BP'S AT HOME 120'S OVER 70'S, CONTINUE TO CHECK AT HOME, 6 MONTH FOLLOWUP ; RECORDED 12/02/19 11 10:53AM BY BRANDAN KAT MA, EFREMATI ON/ADDEN DUM Not Available [facility] 4 05:41:09 Abdomina l pain 13478883 Completed 201102/16/2014 IMPRESSI ON: AFEBRILE , NON-ACUT E ABDOMEN; RECORDED 06/19/20 12 10:28AM BY EFREM SUHATI ON/ADDEN DUM Not Available [facility] 4 15:06:10 Amenorrh ea 23222651 Completed 201102/16/2014 RECORDED 06/19/20 12 10:28AM BY JOSE ALFREDO NELSON I ANNOTATI ON/ADDEN DUM Not Available [facility] 4 15:06:10 Screenin g for malignan t neoplasm of cervix Completed 201102/16/2014 RECORDED 06/19/20 12 10:28AM BY EFREM SUHATI ON/ADDEN DUM Not Available [facility] 4 15:06:11 Impetigo 25646485 Completed 201102/16/2014 RECORDED 06/19/20 12 10:28AM BY EFREM SUHATI ON/ADDEN DUM Not Available [facility] 4 15:06:12 Large cell anaplast ic lymphoma Completed 201102/16/2014 RECORDED 06/19/20 12 10:28AM BY EFREM SUHATI ON/ADDEN DUM Not Available [facility] 4 15:06:12 Malaise and fatigue 599963069 Completed 201102/16/2014 IMPRESSI ON: MOOD GOOD, WILL WEAN OFF ZOLOFT OVER 2 MONTHS; RECORDED 06/19/20 12 10:28AM BY JOSE ALFREDO NELSON I ANNOTATI ON/ADDEN DUM Not Available [facility] 4 15:06:12 Abdomina l pain 85220853 Completed 201103/15/2014 IMPRESSI ON: AFEBRILE , NON-ACUT E ABDOMEN; RECORDED 06/19/20 12 10:28AM BY JOSE ALFREDO NELSON I ANNOTATI ON/ADDEN DUM [facility] Available [facility] 4 05:41:09 Amenorrh ea 87832157 Completed 201103/15/2014 RECORDED 06/19/20 12 10:28AM BY JOSE ALFREDO NELSON I ANNOTATI ON/ADDEN DUM Not Available [facility] 4 05:41:09 Screenin g for malignan t neoplasm of cervix Completed 201103/15/2014 RECORDED 06/19/20 12 10:28AM BY JOSE ALFREDO NELSON I ANNOTATI ON/ADDEN DUM Not Available [facility] 4 05:41:09 Impetigo 49584406 Completed 201103/15/2014 RECORDED 06/19/20 12 10:28AM BY JOSE ALFREDO NELSON I ANNOTATI ON/ADDEN DUM Not Available [facility] 4 05:41:09 Large cell anaplast ic lymphoma Completed 201103/15/2014 RECORDED 06/19/20 12 10:28AM BY JOSE ALFREDO NELSON I ANNOTATI ON/ADDEN DUM Not Available [facility] 4 05:41:10 Malaise and fatigue 768366086 Completed 201103/15/2014 IMPRESSI ON: MOOD GOOD, WILL WEAN OFF ZOLOFT OVER 2 MONTHS; RECORDED 06/19/20 12 10:28AM BY JOSE ALFREDO NELSON I ANNOTATI ON/ADDEN DUM Not Available [facility] 4 05:41:10 Candidal vulvovag initis 47373148 Completed 201202/16/2014 RECORDED 10/24/19 13 10:17AM BY GERMAIN BURR MA, ANNOTATI ON/ADDEN DUM Not Available [facility] 4 15:06:13 Candidal vulvovag initis 58528266 Completed 201203/15/2014 RECORDED 10/24/19 13 10:17AM BY GERMAIN BURR MA, ANNOTATI ON/ADDEN DUM Not Available [facility] 4 05:41:10 Conjunct ivitis 6201601 Completed 201202/16/2014 RECORDED 03/11/20 13 10:11AM BY ULISES REDDY MA, ANNOTATI ON/ADDEN DUM Not Available [facility] 4 15:06:11 Joint pain in ankle and foot Completed 201202/16/2014 IMPRESSI ON: INVERSIO N INJURY, PT TO SEE DR FINCH , ? [facility]; RECORDED 03/11/20 13 10:11AM BY ULISES REDDY MA, ANNOTATI ON/ADDEN DUM Not Available [facility] 4 15:06:13 Conjunct ivitis 8424987 Completed 201203/15/2014 RECORDED 03/11/20 13 10:11AM BY ULISES REDDY MA, ANNOTATI ON/ADDEN DUM Not Available [facility] 4 05:41:09 Joint pain in ankle and foot Completed 201203/15/2014 IMPRESSI ON: INVERSIO N INJURY, PT TO SEE DR FINCH , ? [facility]; RECORDED 03/11/20 13 10:11AM BY ULISES REDDY MA, ANNOTATI ON/ADDEN DUM Not Available [facility] 4 05:41:10 Acute sinusiti s 29675965 Completed 201202/16/2014 IMPRESSI ON: INITIATE D BY ALLERGCRICKET SMoira JACK 2 DAYS FOR AUGMENTI N. START DOING NETI-POT AND FLONASE FIRST. TAKE AUGMENTI N IF NO IMPROVEM ENT.; RECORDED 06/08/20 13 3:41PM BY GERMAIN BURR MA, ANNOTATI ON/ADDEN DUM Ryanne tellez MA [facility] 7 15:37:55 Patient status finding 223676502 Completed 201202/16/2014 RECORDED 06/08/20 13 3:41PM BY GERMAIN BURR MA ANNOTATI ON/ADDEN DUM Ryanne tellez MA [facility] 7 15:37:53 Acute sinusiti s 34254437 Completed 201203/15/2014 IMPRESSI ON: INITIATE D BY ALLERGIE S. HOLD 2 DAYS FOR AUGMENTI N. START DOING NETI-POT AND FLONASE FIRST. TAKE AUGMENTI N IF NO IMPROVEM ENT.; RECORDED 06/08/20 13 3:41PM BY GERMAIN BURR MA, ANNOTATI ON/ADDEN DUM Ryanne tellez MA - [facility] 7 15:37:55 Acute pharyngi tis 941765821 Completed 201302/16/2014 IMPRESSI ON: SEEMS LIKE INFLAMED LYMPH NODE, TIME AND REST NO EVIDENCE OF INFECTIO N; RECORDED 11/13/19 14 12:34PM BY EFREM SUHATI ON/ADDEN DUM Not Available [facility] 4 15:06:10 Hand foot and mouth disease 345113721 Completed 201302/16/2014 RECORDED 11/13/19 14 12:34PM BY EFREM SUHATI ON/ADDEN DUM Not Available [facility] 4 15:06:11 Eruption 704889132 Completed 201302/16/2014 RECORDED 11/13/19 14 12:34PM BY EFREM SUHATI ON/ADDEN DUM Not Available [facility] 4 15:06:13 Acute pharyngi tis 894845311 Completed 201303/15/2014 IMPRESSI ON: SEEMS LIKE INFLAMED LYMPH NODE, TIME AND REST NO EVIDENCE OF INFECTIO N; RECORDED 11/13/19 14 12:34PM BY EFREM SUHATI ON/ADDEN DUM Not Available [facility] 4 05:41:09 Hand foot and mouth disease 881552227 Completed 201303/15/2014 RECORDED 11/13/19 14 12:34PM BY EFREM SUHATI ON/ADDEN DUM Not Available [facility] 4 05:41:09 Eruption 537004116 Completed 201303/15/2014 RECORDED 11/13/19 14 12:34PM BY EFREM SUHATI ON/ADDEN DUM Not Available [facility] 4 05:41:10 Allergic rhinitis 89740047 Active 2013 IMPRESSI ON: USE FLONASE MOST OF THE YR. SHE HAD NORMAL EYE EXAM THIS YEAR. WE DISCUSSE D TO GET YEARLY EXAMS IF ON FLONASE YEAR ROUND; RECORDED 12/24/19 14 9:02AM BY BRANDAN KAT MA, OFFICE VISIT Dino Baez MD [address] [address], [facility] [place], [address] , [facility] 5 08:41:17 Anemia 904304562 Completed 201301/25/2017 STORY: MILD (LABS ON 10/11); RECORDED 12/24/19 14 9:02AM BY BRANDAN KAT MA, OFFICE VISIT Ryanne tellez [facility] 7 15:38:25 Adult health examinat ion Completed 201302/16/2014 IMPRESSI ON: PAP UTD, IS AND DOING WELL.; RECORDED 12/24/19 14 9:01AM BY BRANDAN KAT MA, ANNOTATI ON/ADDEN DUM Not Available [facility] 4 15:06:11 Anxiety state 864683753 Completed 201301/25/2017 RECORDED 12/24/19 14 9:02AM BY BRANDAN KAT MA, OFFICE VISIT Ryanne tellez [facility] 7 15:48:19 History of malignan t neoplasm 029080080 Completed 201304/29/2018 STORY: LARGE CELL, IN REMISSIO N 1996; RECORDED 12/24/19 14 9:02AM BY BRANDAN KAT MA, OFFICE VISIT Ryanne tellez [facility] 8 15:57:04 Pure hypercho lesterol emia 656570375 Completed 201301/25/2017 RECORDED 12/24/19 14 9:02AM BY BRANDAN KAT MA, OFFICE VISIT Ryanne tellez [facility] 7 15:38:18 Essentia l hyperten ernie 18833324 Completed 201301/25/2017 IMPRESSI ON: PT IS OFF MEDS AND BP IS GREAT, IT WILL BE CLOSELY MONITORE D DUE TO PREGNANC Y; RECORDED 12/24/19 14 9:02AM BY BRANDAN KAT MA, OFFICE VISIT Kathy Bhatia MA null, [facility] 8 14:04:02 Migraine 88323021 Active 2013 IMPRESSI ON: VERY BOTHERSO ME TO PT, I ADVISED HER TO AVOID IMITREX OR FIORICET DUE TO TRYING TO GET . PT MOST LIKELY GETTING MIGRAINE S RELATED TO BAROMETR IC/SINUS TRIGGER. IRRIGATE , LIMITED WITH MEDS BUT ONCE DONE GETTIGN WOULD BENEFIT FORM TCA; RECORDED 12/24/19 14 9:02AM BY BRANDAN KAT MA, OFFICE VISIT Ryanne tellez [facility] 5 17:49:45 Non-neop lastic nevus 258102834 Completed 201301/25/2017 RECORDED 12/24/19 14 9:02AM BY BRANDAN KAT MA, OFFICE VISIT Ryanne tellez [facility] 7 15:37:58 Patient status finding 421213440 Completed 201301/25/2017 RECORDED 12/24/19 14 9:03AM BY BRANDAN KAT MA, OFFICE VISIT Ryanne tellez [facility] 7 15:37:53 Chronic sinusiti s 75578353 Completed 201301/25/2017 IMPRESSI ON: ENCOURAG E REST AND HYDRATIO N. RTC IF PERSISTE NT OR WORSENIN G SYMPTOMS .; RECORDED 12/24/19 14 9:23AM BY SAVANNAH DAY PA-C, OFFICE VISIT Ryanne tellez [facility] 7 15:38:31 Adult health examinat ion Completed 201303/15/2014 IMPRESSI ON: PAP UTD, IS AND DOING WELL.; RECORDED 12/24/19 14 9:01AM BY BRANDAN KAT MA, ANNOTATI ON/ADDEN DUM Not Available [facility] 4 05:41:09 Degenera tion of lumbar interver tebral disc 49505456 Completed 201301/25/2017 RECORDED 12/24/19 14 9:02AM BY BRANDAN KAT MA, OFFICE VISIT Ryanne tellez [facility] 7 15:48:16 At increase d risk for cardiova scular event 142223115 Completed 201710/05/2019 Ryanne tellez [facility] 0 14:41:28 History of malignan t lymphoma 362900817 Active 2017 Ryanne tellez [facility] 8 15:56:59 Family history of cardiac disorder 636497349 Active 2017 Ryanne tellez [facility] 8 16:39:31 [facility]ia [facility] hyperten ernie 98557855 Active 2017 THERESA Valverde [facility] 8 14:04:02 Pain of hip region 31714933 Completed 201811/17/2018 Removal Reason: not specific Corrine Forte rosalinda [facility] 9 10:42:32 Osteonec rosis of hip 403979001 Completed 201805/12/2019 Removal Reason: Not Specific Corrine Forte rosalinda [facility] 9 10:07:22 Female urinary stress incontin ence 78181643 Active 2019 THERESA Valverde [facility] 0 14:21:35 Hypokale say 46021080 Completed 202003/19/2024 ABBEY KURTZ MD [address] [facility] [address], [place], [address] , [facility] 4 07:37:12 Pain of right ankle joint 78196111198 658231 Completed 202303/26/2025 ABBEY KURTZ MD [address] [facility] [address], [place], [address] , [facility] 5 09:24:35 Pain in right lower limb 681324812 Completed 202303/26/2025 ABBEY KURTZ MD [address] [facility] [address], [place], [address] , [facility] 5 09:24:43 Pain of toe of left foot 21034422605 9108 Completed 202403/26/2025 ABBEY KURTZ MD [address] [facility] [address], [place], [address] , [facility] 5 09:24:29 Pain in bilatera l feet 20548475908 931263 Completed 202403/26/2025 ABBEY KURTZ MD [address] [facility] [address], [place], [address] , [facility] 5 09:24:26 Erythrom elalgia 02537150 Active 2024 ABBEY KURTZ MD [address] [facility] [address], [place], [address] , [facility] 5 07:53:31 Problem Notes None recorded. Procedures Surgical History Date Name Laterality Status Provider Name and Address Organization Details Recorded Time 09/04/19 25 Most Recent Mammogram completed Antonella Martines [facility] 09/04/2024 10:03:33 03/13/20 23 Colonoscopy completed Antonella Maritnes [facility] 03/14/2023 09:47:05 08/13/19 23 Mammogram both breasts completed Kyra Echavarria [facility] 08/15/2022 12:25:21 08/05/19 23 Date of Last Pap Smear completed Kathy Bhatia MA [facility] 02/07/2023 13:53:55 02/07/20 22 Mammogram one breast completed Kusum Rodriges [facility] 02/09/2022 11:04:15 02/03/20 21 Ultrasound breast limited completed Apoorva Brewster [facility] 02/27/2021 13:57:38 02/29/20 20 biopsy of breast completed Brandan reddy MA [facility] 11/12/2022 16:12:38 07/07/20 19 repair of stress incontinence by suprapubic sling completed Kathy Bhatia MA [facility] 10/05/2019 14:24:39 07/07/20 19 anterior colporrhaphy for repair of cystocele without repair of urethrocele completed Brandan reddy MA [facility] 11/12/2022 16:11:19 10/15/18 96 Appendectomy completed Kathy Bhatia MA [facility] 01/12/2022 15:25:24 10/03/18 96 Cancer Surgery completed Kathy Bhatia MA [facility] 01/12/2022 15:25:23 Cholecystectomy completed Brandan reddy MA [facility] 11/12/2022 16:00:18 nasal septoplasty completed Brandan Kilgore-Frantz reddy MA [facility] 11/12/2022 16:13:00 lengthening of tendon of upper arm completed Brandan reddy MA [facility] 11/12/2022 16:13:41 Imaging Results None recorded. Procedure Notes None recorded. Medical Equipment None Reported. Allergies Allergen ID Allergen Name Allergen Category Reaction Reaction Severity Criticality Documentation Date Start Date Code Code System Note Provider Name and Address Organization Details Recorded Time 7062 Procardia medicatio n edema tachycard ia Not available Not available Not available 02/16/2014201342 3 RxNorm Prasanna Joya PA-C [address] [facility] [address], [facility] [place], [address], [facility] 5 09:51:11 7063 vancomyci n hydrochlo ride medicatio n rash Not available Not available 02/16/20142013 87743 RxNorm Brandan kumar MA null, [facility] 3 15:49:42 Medications Name Sig Start Date [...] Available Not Available Nasonex 50 mcg/actua tion [place] DAILY IN EACH NOSTRIL 11/10 completed RECORDED [...] Relief 50 mcg/actua tion nasal spray,mickey pension [place] 1 spray every day by intranas al [...] Updated DateTime 5 165.74 cm 24.3 kg/m2 87487.7 8 g 79 /min 98 % 98 % 98.2 [degF] 150/89 mm[Hg] Savannah Garcia MA [facility] 5 15:09:16 Date Recorded Body height Body mass index (BMI) Body weight Heart rate Oxygen saturation Oxygen saturation in Arterial blood by Pulse oximetry Body temperature Systolic And Diastolic Provider Name and Address Organization Details Last Updated DateTime 165.74 cm 24.3 kg/m2 22387.0 8 g 98 /min 100 % 100 % 98.3 [degF] 122/88 mm[Hg] [facility] 09:06[facility]38 Date Recorded Systolic And Diastolic Provider Name and Address Organization Details Last Updated DateTime 11/12/2024 146/87 mm[Hg] ABBEY KURTZ MD [address] [facility] [address], [place], [address], [facility] 11/12/2024 14:49:57 Date Recorded Body height Body mass index (BMI) Body weight Heart rate Oxygen saturation Oxygen saturation in Arterial blood by Pulse oximetry Body temperature Systolic And Diastolic Provider Name and Address Organization Details Last Updated DateTime 165.74 cm 24.6 kg/m2 83989.2 6 g 76 /min 100 % 100 % 97.7 [degF] 135/88 mm[Hg] [facility] 14:36:46 Date Recorded Systolic And Diastolic Provider Name and Address Organization Details Last Updated DateTime 11/15/2024 124/80 mm[Hg] [facility] 11/24/2024 11:41:16 Date Recorded Systolic And Diastolic Provider Name and Address Organization Details Last Updated DateTime 11/16/2024 117/84 mm[Hg] CRISTINA Brooks MA [facility] 11/24/2024 11:39:22 Date Recorded Systolic And Diastolic Provider Name and Address Organization Details Last Updated DateTime 11/17/2024 123/85 mm[Hg] CRISTINA Brooks MA [facility] 11/24/2024 11:39:42 Date Recorded Systolic And Diastolic Provider Name and Address Organization Details Last Updated DateTime 11/18/2024 121/87 mm[Hg] CRISTINA Brooks MA [facility] 11/24/2024 11:40:27 Date Recorded Systolic And Diastolic Provider Name and Address Organization Details Last Updated DateTime 11/19/2024 121/86 mm[Hg] Swapnil Moore RN [facility] 11/24/2024 11:41:56 Date Recorded Systolic And Diastolic Provider Name and Address Organization Details Last Updated DateTime 11/20/2024 123/85 mm[Hg] Swapnil Moore RN [facility] 11/24/2024 11:42:23 Date Recorded Systolic And Diastolic Provider Name and Address Organization Details Last Updated DateTime 11/21/2024 121/81 mm[Hg] Swapnil Moore RN [facility] 11/24/2024 11:42:58 Date Recorded Body height Body mass index (BMI) Body weight Heart rate Oxygen saturation Oxygen saturation in Arterial blood by Pulse oximetry Body temperature Systolic And Diastolic Provider Name and Address Organization Details Last Updated DateTime 165.74 cm 24.6 kg/m2 45159.2 6 g 77 /min 99 % 99 % 98 [degF] 118/81 mm[Hg] Tati Barrow MA [facility] 08:34:53 Date Recorded Body height Provider Name an d Address Organization Details Last Updated DateTime 06/18/2024 165.74 cm Kathy Bhatia MA [facility] 06/18/2024 11:23:23 Social History Question Answer Notes LastModified by Organizat ion Details LastModified Time Tobacco Smoking Status [facility] Sm[facility] 11/17/2014 15:40:32 Is Blood Transfusion Acceptable In An Emergency? Yes Information not available 01/25/2017 What Is Your Level Of Caffeine Consumption? Occasional [email or web address] Information not available 11/17/2014 How Much Tobacco Do You Chew? None Information not available 01/25/2017 In The 14 Days Before Symptom Onset, Have You Had Close Contact With A Laboratory-[facility] COVID-19 While That Case Was Ill? [...] Type Of Diet Are You Following? REGULAR Information not available 11/17/2014 Which Illicit Or [...] Or Greater Than 100 Degrees Fahrenheit? No [email or web address] Information not available 03/22/2020 Are You Or Anyone In Your Household A Health Care Provider Or Emergency Responder? No Information not available 03/22/2020 To The Best Of Your Knowledge Have You Been In Close Proximity To Any Individual Who Tested Positive For COVID-19? No [email or web address] Information not available 03/22/2020 Have You Recently Traveled To A COVID-19 High Risk Area Or Gathering In The Last 10 Days? No Information not available 05/31/2021 What Was The Date Of Your Most Recent Tobacco Screening? 03/26/2025 [email or web address] Information not available 03/26/2025 How Many Children Do You Have? 2 [email or web address] Information not available 11/17/2014 Do You Use [...] 01/12/2022 Do You Use Sunscreen Routinely? Yes [email or web address] Information not available 11/17/2014 Sex: Unknown Functional Status Question Answer Note LastModified by Organizat ion Details LastModified Time Do you use any illicit or recreational drugs? No [email or web address] Information not available 03/20/2024 What is your level of alcohol consumption? Occasional [email or web address] Information not available 11/17/2014 Do you or have you ever used smokeless tobacco? Never used smokeless tobacco [email or web address] Information not available 05/11/2019 Are you currently employed? Yes [email or web address] Information not available 11/17/2014 Are you able to walk independently without assistance or assistive devices? YESWOREST [email or web address] Information not available 01/12/2022 Are you able to care for yourself independently? 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 Never used electronic cigarettes Information not available 01/12/2022 What is your exercise level? Heavy [email or web address] Information not available 01/12/2022 Mental Status None [...] col on cancer Medical History Condition Response Gout N Other N Blood Diseases N Kidney Stones N Hyperthyroidism N Breast Cancer N Depression N COPD N Lung Disease N Hypothyroidism N Defects or Inherited Disease N Anesthesia Complications N Headaches/Migraines Y Anxiety Disorder N Varicose Veins N Obesity N Vision or Eye Problems N Arthritis N Head Injury/Concussion Y Polyps N Infertility N Congenital Anomalies N Acid Reflux (GERD) N Cancer Y Stroke N ADHD N Endometriosis N High Cholesterol N Liver Disease N Fibromyalgia N Kidney Disease N Heart Problems N Ear or Hearing Problems N Hospitalizations N Thyroid Problems N GI Problems N Acne N Eating Disorder N Skin Problems N Anemia N Constipation Y Bladder Problems Y Mental Illness N Ovarian Cancer N Diabetes N Blood Transfusions N Seizures/Epilepsy Y Tuberculosis N AIDS/HIV N Congestive Heart Failure (CHF) N Eczema N Diverticulitis N Abuse/Domestic Violence N Asthma N Allergies Y Reflux/GERD N Hepatitis N Pulmonary Embolism N Hypertension Y Chicken Pox Y Autism Spectrum Disorder (ASD) N Osteoporosis N Gynecological History Statement/Question Response Abnormal Pap [...] virus, quadrivalent, preservative 8 completed THERESA Waddell [facility] 09/20/2023 10:06:53 Influenza, split virus, quadrivalent, preservative 9 completed THERESA Valverde [facility] 05/11/2019 15:44:37 MMR 0 completed Kusum tellez [facility] 06/22/2019 14:36:24 MMR 1 completed Kusum tellez [facility] 06/22/2019 14:36:38 Influenza, split virus, quadrivalent, preservative 1 completed THERESA Waddell [facility] 09/20/2023 10:06:53 COVID-19, mRNA, LNP-S, PF, 100 mcg/0.5mL dose or 50 mcg/0.25mL dose 1 completed THERESA Valverde [facility] 08/23/2021 16:03:04 COVID-19, mRNA, LNP-S, PF, 100 mcg/0.5mL dose or 50 mcg/0.25mL dose 1 completed THERESA Aguirre, [facility] 11/12/2022 15:49:26 COVID-19, mRNA, LNP-S, PF, 100 mcg/0.5mL dose or 50 mcg/0.25mL dose 1 completed THERESA Valverde, [facility] 08/23/2021 16:04:32 Influenza, MDCK, quadrivalent, PF 8 completed [facility] 10/09/[facility] 14:09:10 Influenza, split virus, quadrivalent, PF 1 completed [facility] 10/09/2021 14:09:10 Influenza, split virus, quadrivalent, PF 0 completed [facility] 10/09/2021 14:09:10 Influenza, split virus, quadrivalent, PF 7 completed [facility] 10/09/2021 14:09:10 COVID-19, mRNA, LNP-S, PF, 100 mcg/0.5mL dose or 50 mcg/0.25mL dose 1 completed THERESA Aguirre, [facility] 11/12/2022 15:49:26 COVID-19, mRNA, LNP-S, PF, 100 mcg/0.5mL dose or 50 mcg/0.25mL dose 1 completed THEERSA Waddell, [facility] 10/05/2022 15:56:09 Tdap 5 completed THERESA Waddell, [facility] 10/05/2022 15:55:08 COVID-19, mRNA, LNP-S, PF, 100 mcg/0.5mL dose or 50 mcg/0.25mL dose 1 completed THERESA Waddell, [facility] 10/05/2022 15:56:09 Influenza, split virus, quadrivalent, PF 3 completed THERESA Waddell, [facility] 09/20/2023 10:06:53 Influenza, split virus, trivalent, PF 4 completed THERESA Valverde, [facility] 06/18/2024 11:23:29 Tdap 7 completed Not Available [facility] 02/16/2014 14:00:18 Novel [id number] , all formulations 0 completed Not Available [...] ICD10 Code Diagnosis IMO Codes Diagnosis Note [id number] autoEComm erce [address] [facility] [facility] [place] [address] 03/27/2005 00:00:00 [id number] autoEComm erce [address] [facility] [address] [place] [address] 03/11/2006 00:00:00 [id number] autoEComm erce [address] [facility] [address] [facility] [place] [address] 03/20/2006 00:00:00 [id number] autoEComm erce [address] [facility] [facility] [place] [address] 11/25/2006 00:00:00 [id number]Comm [address] [address] [place] [address] 02/27/2007 00:00:00 [id number] [address]Comm [address] [address] [place] [address] 03/26/2007 00:00:00 07943 autoEComm erce [address] [facility] [address],[place] [address] [place] [address] 05/29/2007 00:00:00 22906 autoEComm erce [address] [facility] [address],[place] [address] [place] [address] 08/29/2007 00:00:00 [id number] autoEComm erce [address] [facility] [address],[place] [address] [place] [address] 12/03/2007 00:00:00 [id number] autoEComm erce [address] [facility] [address] [place] [address] 04/21/2008 00:00:00 88963 autoEComm erce [address] [facility] [address] [place] [address] 08/18/2008 00:00:00 55588 autoEComm erce [address] [facility] [address] [place] [address] 11/17/2008 00:00:00 09135 autoEComm erce [address] [facility] [address] [place] [address] 12/07/2008 00:00:00 78161 autoEComm erce [address] [facility],[place] [address] [place] [address] 12/23/2008 00:00:00 90539 autoEComm erce [address] [facility] [address] [place] [address] 02/16/2009 00:00:00 23096 autoEComm erce [address] [facility] [address] [place] [address] 08/24/2009 00:00:00 02520 autoEComm erce [address] [facility] [address],[place] [address] [place] [address] 01/06/2010 00:00:00 05265 autoEComm erce [address] [facility] [address],[place] [address] [place] [address] 03/02/2010 00:00:00 11217 [address]EComm erce [address],[place] [address] [place] [address] 09/07/2010 00:00:00 77449 autoEComm erce [address],[place] [address] [place] [address] 12/01/2010 00:00:00 04688 autoEComm erce [address] [facility] [address],[place] [address] [place] [address] 03/02/2011 00:00:00 23656 autoEComm erce [address] [facility] [address],[place] [address] [place] [address] 03/08/2011 00:00:00 48683 autoEComm erce [address] [facility] [address],[place] [address] [place] [address] 05/16/2011 00:00:00 69380 autoEComm erce [address] [facility] [address] [place] [address] 09/10/2011 00:00:00 45789 autoEComm erce [address] [facility] [address] [place] [address] 06/19/2012 00:00:00 24806 autoEComm erce [address] [facility] [address] [place] [address] 09/06/2012 00:00:00 08564 autoEComm erce [address] [facility] [address] [place] [address] 10/23/2012 00:00:00 26221 autoEComm erce [address] [facility] [address],[place] [address] [place] [address] 11/10/2012 00:00:00 03025 autoEComm erce [address] [facility] [address] [place] [address] 03/11/2013 00:00:00 96162 autoEComm erce [address] [place] [address] [place] [address] 06/08/2013 00:00:00 81556 [address]EComm erce [address],[place] [address] [place], [place] [address] 07/03/2013 00:00:00 45814 autoEComm erce [address] [place] [address] [place], [place] [address] 08/31/2013 00:00:00 77258 autoEComm erce [address] [place] [address] [place], [place] [address] 11/12/2013 00:00:00 [id number] autoEComm erce [address] [place] [address] [place], [place] [address] 12/23/2013 00:00:00 [id number] Ryanne moreland MD Main Office [address] [place] [address] 11/17/2014 15:16:33 11/17/2014 16:00:33 Adult health examination 481163487 pap is utd, pt is trying to be active Low back pain 301648468 on going, will see provider at [facility], has tried PT [id number] JORI Peraza Main Office [address] [place] [address] 01/21/2015 10:50:06 01/21/2015 11:36:38 Acute sinusitis 27795310 Migraine 56606696 sinusiti s triggering her migraines. she will take another imitrex when she gets home. [id number] Ryanne moreland MD Main Office [address] [place] [address] 02/17/2015 15:50:13 02/17/2015 16:17:37 Low back pain 434157264 ongoing, will see provider at [facility], has tried PT [id number] Dino Baez MD Main Office [address] [place] [address] 03/12/2015 08:56:14 03/12/2015 09:54:46 Pain of hip region 57757910 Recent imaging suggestive of avascular necrosis. Unable to take more NSAIDS because of migraine triggers. Will use narcotic for short term as needed pain control while awaiting MRI and orthopedic eval. [id number] Dino Baez MD Main Office [address] [facility] [address] [place] [address] 04/07/2015 08:03:47 04/07/2015 08:36:33 Acute sinusitis 97271611 Recurrent issue, likely triggered by allergic inflammati on based on history and exam findings. Will treat for secondary bacterial process based on duration of symptoms. Call inb/worse over next 5-7 days as different abx vs short course of prednisone may be warranted. Allergic rhinitis 73817828 Try managing with topical steroid, sinus irrigation and decongesta nt. If effective drainage not obtained short course of oral steroid may need to be considered . [id number] Ryanne moreland MD Main Office [address] [address] [place] [address] 06/29/2015 12:33:23 06/29/2015 13:45:13 Low back pain 124783829 M54.5 ongoing, pt is very frustrated and her quality of life is affected, unable to carry her kids, she is followed by pain management and is not getting any better, she is asking for me to talk to them about the next step. 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 History of malignant lymphoma 875511574 Z85.79 dx 1995 Osteonecrosis of hip 444 500774 M87.859 [id number] Odette Joya PA-C Main Office [address] [facility] [address] [place] [address] 04/22/2018 15:04:08 04/22/2018 16:07:07 Essential hypertension 62359467 I10 Start HCTZ 25 mg daily. Continue testing BP at wk and home. REturn for recheck on 04/29. Pain in calf 416207970 M 79.662 R/o DVT. Ultrasoun scheduled for later today. At [facility] ed risk for cardiovascular event 542632653 Z91.89 High cardiac risk . Will set up for stress echo. [id number] Ryanne moreland MD Main Office [address] [facility] [address] [place] [address] 04/29/2018 15:19:23 04/29/2018 16:16:23 Adult health examination 539728976 Z00.00 pap is utd, pt will get flu shot at work will see chart computer in a few months and get mammogram when she turns 38 restart exercise Essential hypertension 97967385 I10 BP is much better, will recheck in 2 months and check labs pt to get stress echo for atypical symptoms of left sided chest pain a few weeks ago, has a strong family hx of heart disease History of malignant lymphoma 465740810 Z85.79 dx 1995 goes to cancer once a year, gets blood work Osteonecrosis of hip 444 838948 M87.859 rarely bother her if she keeps exercising and stretching . Family his tory of cardiac disorder 998753474 Z82.49 father with an PA at 40 [id number] Odette Joya PA-C Main Office [address] [place] [address] 06/17/2018 11:18:23 06/17/2018 12:14:16 Dysuria 56871554 R30.0 Blood in urine 19207967 R31.9 [id number] Ryanne moreland MD Main Office [address] [facility] [address] [place] [address] 07/14/2018 13:49:44 07/14/2018 14:45:47 Essential hypertension 59985364 I10 BP controlled on current treatment, will have her see nephrology for consult due to age. Lab today. Pt with a hx of preeclamps ia and then presented with accelerate d htn, hctz has controlled BP very well and feels much better on med, father with htn, refer to renal due to age, hx of preeclamps ia Migraine 06401093 G43.90 9 better, less often, controlled on meds, follows with neuro Pain of hip region 73452 002 M25.559 stable, continue exercise program [id number] Ryanne moreland MD Main Office [address] [facility] [address] [place] [address] 11/14/2018 14:47:56 11/14/2018 15:44:56 Essential hypertension 73841710 I10 followed by renal, hx of preeclamps ia Pain of hip region 95930 002 M25.552 stable, continue exercise program Diverticul itis of colon 231665879 K57.32 presumed first case of diverticul itis, will treat empiricall y and get CT scan to rule out other entity, unlikely any complicati on (abscess.. ) therefore ok if CT is in a few days due to scheduling /insurance approval, continue tx. [id number] Ryanne moreland MD Main Office [address] [place] [address] 05/11/2019 15:16:55 05/11/2019 16:15:59 Adult health examination 790609460 Z00.00 pap is utd Screening for malignant neoplasm of breast 310927086 Z12.39 pt to arrange Migraine 01587598 G43.90 9 just started monthly injecitons for suppressio n History of malignant lymphoma 797879384 Z85.79 dx 1995 goes to cancer once a year, gets blood work Osteonecrosis of hip 444 251683 M87.851 M87.852 rarely bother her if she keeps exercising and stretching . Essential hypertension 95578551 I10 followed by renal, hx of preeclamps ia well controlled Female uri nary stress incontinence 85744004 N39.3 new issue raised by pt, ongoing, quite bothersome , recc referral to urogynecol dhaval, needs urodynamic s and possible meds or bladder suspension [id number] Ryanne moreland MD Main Office [address] [facility] [address] [place] [address] 10/05/2019 14:03:41 10/05/2019 14:54:03 Female urinary stress incontinence 38196512 N39.3 had a successful surgery with bladder suspension , she has no further incontinen ce very pleased History of malignant lymphoma 971620137 Z85.79 dx 1996 goes to cancer once a year, gets blood work Dr Browne follows annually Essential hypertension 62273090 I10 followed by renal, hx of preeclamps ia well controlled Hypercholesterolemia 136 86028 E78.00 fasting History of breast biopsy with benign finding 0603556444 09342 Z98.890 on right marker left, no concerns [id number] Ryanne moreland MD [facility] [address] [facility] [address] [place] [address] 03/22/2020 13:06:06 03/23/2020 07:41:07 Essential hypertension 03213689 I10 BP well controlled , continue meds Migraine 85745525 G43.90 9 just started monthly injecitons for suppressio n. migraines are much less common and less intense [id number] Ryanne moreland MD Main Office [address] [facility] [address] [place] [address] 05/31/2021 15:33:38 06/01/2021 09:03:27 Hypokalemia 16612921 E87.6 stop hctz likely causing this, can also stop potassium as she will be starting ACEI Atypical chest pain 1025 02501 R07.89 ekg normal, likely GI episode with vasovagal sx. Pt had stress test a few years ago, prefers to monitor sx with med changes to see if better. Will call if has any further episodes. Essential hypertension 66349810 I10 stop hctz and potassium, will start lisinopril 5 mg daily. Pt to do labs a week or two after starting and followup in a month. She will monitor BP at home. [id number] Ryanne moreland MD Main Office [address] [facility] [address] [place] [address] 08/23/2021 15:51:43 08/23/2021 16:52:13 Essential hypertension 21217843 I10 BP is well controlled continue meds Osteonecrosis of hip 444 949995 M87.851 rarely bother her if she keeps exercising and stretching . Neck pain 05926213 M54.2 see hpi, injury 01/23 pt to do PT and heat, trial of low dose flexeril Migraine 86671532 G43.90 9 is on nortryptyl ine and injections , they are helpful [id number] Ryanne moreland MD Main Office [address] [facility] [address] [place] [address] 10/09/2021 13:56:30 10/09/2021 15:04:48 Pain of toe of left foot 1522207770 81818 M79.675 Likely covid toes, keep feet as warm as possible, wear shoes or slippers, elevate feet, topical steroid not helpful, would try gabapentin at night for aching pain. Vascular appt due to underlying condtion of neuropathy , decreased capillary refill. History of SARS-CoV-2 29 69483309 76710176 Z86.16 likely covid toes , will have her seen by vascular due to underlying neuropathy and poor circulatio n from previous chemothera py. Pt to call if any worseing sx. Called podiatry they do no see people with this condition. Call in to ID to see if any other options for treatment are available [id number] Ryanne moreland MD Main Office [address] [facility] [address] [place] [address] 01/12/2022 15:22:23 01/12/2022 16:03:17 Adult health examination 957565908 Z00.00 pap is utd as is mammogram. is active Essential hypertension 95703117 I10 BP is well controlled continue meds Migraine 28770817 G43.90 9 on injections , very helpful Neck pain 84464642 M54.2 muscle spasm, no injury use as needed avoid alcohol with muscle relaxer [id number] ABBEY KURTZ MD Main Office [address] [facility] [address] [facility] [place], [place] [address] 09/17/2022 10:52:23 09/17/2022 11:27:11 Upper abdominal pain 02793814 R10.10 - pain located in the left [...] diverticul itis/diver ticulosis Gastroesop hageal reflux disease 090790257 K21.9 - pt has a history of [...] chocolate, alcohol, peppermint , and fatty foods. [id number] Ryanne moreland MD Main Office [address] [facility] [address] [facility] [place] [address] 10/05/2022 15:52:46 10/05/2022 16:15:33 Essential hypertension 35458222 I10 BP is well controlled continue meds Abdominal pain 16569128 R10.9 to see GI, I asked to check on appt [id number] Dino Baez MD Main Office [address] [facility] [address] [place] [address] 11/12/2022 15:23:59 11/12/2022 16:44:30 Sprain of ligament of metatarsophalangeal joint of great toe 146902740 S93.522A x > 2 wks - seen by [facility] – seiling - 'turf toe' - negative xrays - still has edema/tend erness/jj thema - but not warm, so doubt gout - will get adult specialist carlo arce, trial c diclofenac [id number] ABBEY KURTZ MD Main Office [address] [facility] [address] [place] [address] 02/07/2023 13:27:41 02/07/2023 14:21:13 Adult health examination [id number] Z00.00 Health Maintenanc e FemaleA) Patient was [...] not this yearTdAP: 04/05/2015 Zoster: due at 30ZDE95: due at 83HTZJ49: due at 73EWX80:PC V15:COVID: 08/10/2020 , 09/07/2020 , 06/09/2021 D) Routine blood work orderedE) Updated patient's history RTC in one year for annual exam or sooner if any acute complaints Essential hypertension 88006355 I10 - at goal- BP today 112/73- [...] a reaction to a medicine you are taking.>Alcaal ve headaches that keep coming back (recurring ).>Feel dizzy.>Hav e swelling in your ankles.>Alcala ve trouble with your vision. 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 Migraine 86309918 G43.90 9 - chronic migraine without aura [...] - last seen by neuro 09/2022 Fatigue 12875621 R53.83 Z00.00 Hyperlipidemia 47468588 E78.5 Z00.00 Hepatitis C screening 41 8500370 Z11.59 Sprain of ligament of metatarsophalangeal joint of great toe 418998553 S93.522A - x-ray 10/27 was normal- pt underwent MRI with ortho and was normal as per patient, will try to get the result- pt was also placed in a walking boot for a period of time- pt was referred to podiatry for further evaluation and second opinion [id number] Robbie Luevano MD Main Office [address] [facility] [address] [place] [address] 09/20/2023 09:54:40 09/20/2023 10:36:02 Pain of right ankle joint [id number] 0028944 M25.571 will check XR and refer to orthopedic s. Sx for 5 months and triggered by specific motions/ movements. ? partial tear. seh declines PT for now, she has been doing home PT on her won. takes naproxen as needed. Pain in ri ght lower limb 700289092 M79.604 pain radiates up to left lateral leg into her knee. [id number] ABBEY KURTZ MD Main Office [address] [facility] [address] [place] [address] 03/20/2024 15:00:18 03/20/2024 15:40:53 Adult health examination [id number] Z00.00 Health Maintenanc e FemaleA) Patient was [...] nfluenza: 05/24/2023 TdAP: 04/05/2015 Zoster: due at 67FNT73: due at 17BTAL03: due at 03HPB56:PC V15:COVID: 08/10/2020 , 09/07/2020 , 06/09/2021 D) Routine blood work orderedE) Updated patient's history RTC in one year for annual exam or sooner if any acute complaints Essential hypertension 16132244 I10 - at goal- BP today 124/73- [...] ve trouble with your vision. 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 Migraine 55985710 G43.90 9 - chronic migraine without aura [...] - last seen by neuro 10/2023 Fatigue 79784321 R53.83 Z00.00 Hyperlipidemia 98168361 E78.5 Z00.00 FASTING Screening for malignant neoplasm of cervix 089541994 Z12.4 Herpes labialis 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 B00.1 - pt has had 4 recurrent episodes within the year- will start on ppx- RTC in 3 months HIV screen ing declined [id number] 13203 Z53.20 [id number] ABBEY KURTZ MD Main Office [address] [place] [address] 06/18/2024 11:05:50 06/18/2024 12:18:04 Allergic rhinitis 24309941 J30.9 - pt follows with allergy, get shots- c/w flonase and keshawn OTC- taking benadryl as needed Herpes labialis 2842560 B00.1 - pt has had 4 recurrent episodes within the year- c/w ppx therapy- RTC in 3 months Dry cough 85545512 R05.9 - pt has been having a [...] time as it did not provide relief [id number] Dino Baez MD Main Office [address] [place] [address] 08/13/2024 14:47:34 08/13/2024 15:40:01 Essential hypertension 93674220 I10 pt off acei d/t dry cough (resolved) since 11.24bp going back upwill initiate arb - losartan 50mg qhscont to monitor bp - if too low, then cut in 1/2 = 25mg [id number] Dino Baez MD Main Office [address] [place] [address] 10/12/2024 08:53:47 10/12/2024 09:55:04 Pain in bilateral feet [id number] 7781988 M79.672 has had x ~ 3 yrs p covid infxn - seen by vascular 4.22 - ? covid toe ? crps ? other - chilbain's , raynaud'sw ill get rheum eval meanwhile, see below:as per online - Treatment For chilblains , keep the affected area warm and dry, and avoid clothing that rubs For Raynaud's, calcium channel blockers can help Essential hypertension 56815028 I10 pt off acei d/t dry cough (resolved) since 11.24bp going back upwill initiate arb - losartan 50mg qhscont to monitor bp - if too low, then cut in 08/06 = 25mg 3.25 - bp stable lately on losartan 50mg, but in light of above sxs - will change to amlodipine 2.5mg --- stop losartan [id number] ABBEY KURTZ MD Main Office [address] [facility] [address] [facility], [place] [address] 11/12/2024 14:29:56 11/12/2024 14:54:04 Essential hypertension 08334850 I10 - elevated- BP today 135/88 and [...] your ankles.>Alcala ve trouble with your vision. [id number] ABBEY KURTZ MD Main Office [address] [facility] [address] [facility] [place] [address] 03/26/2025 08:26:37 03/26/2025 09:04:28 General examination of patient 716628064 Z00.00 [id number] Health Maintenanc e FemaleA) Patient was counseled [...] TdAP: 04/05/2015 -> 04/2025Zost er: due at 66WSE19: due at 02CFSQ07: due at 75UHN84:PC V15:COVID: 08/10/2020 , 09/07/2020 , 06/09/2021 D) Routine blood work orderedE) Updated patient's history RTC in one year for annual exam or sooner if any acute complaints Essential hypertension 69321345 I10 - at goal- BP today 118/81- [...] ve trouble with your vision. 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 Persistent cough 5061789 02 R05.3 908536 - this has been a chronic intermitte [...] ID Guarantor Name 04/12/2025 1 SETH-THERESA (PPO) [id number] Heron Natarajan [id number] Kaci Natarajan 06/17/2024 1 [employer] [id number] Heron Natarajan [id number] 2 [id number] Kaci Natarajan Notes Date Note Type Note [...] patient stopped medication. ABBEY KURTZ MD [address] [facility] [address], [place], [address], [facility] [place] 06/18/2024 12:14:46 08/13/2024 text/html Hypertension F/UReported [...] back up though Prasanna Joya PA-C [address] [facility] [address], [place], [address], [facility] 08/13/2024 20:09:52 10/12/2024 text/html Swelling in toes [...] lidocaine roll on Prasanna Joya PA-C [address] [address], [place], [address], [facility] 10/12/2024 09:58:32 11/12/2024 text/html Hypertension F/UReported [...] and trouble sleeping. ABBEY KURTZ MD [address], [address], [facility] 11/12/2024 14:56:34 03/26/2025 text/html Generic HPI [...] (wears glasses and contacts)Diet: regularActivity: stationary bike ABBEY KURTZ MD [address] [address], [place], [address], [facility] 03/26/2025 09:25:16 OBGyn Episode No OBEpisode recorded.
== END 2025-05-31 15:44 | disposition home or self-care (01) ==
LOC: HO.HMGAL 15:44
PROVIDERS: PCP Student in an Organized Health Care Education/Training Program; Visit Provider Registered Nurse Emergency
DX: J30.89 Other allergic rhinitis (principal)
CPT/HCPCS: 95117; 95165

== ENCOUNTER 2025-07-05 15:21 | Outpatient (AMB) | payer OTHER, SELFPAY ==
--- OUTSIDE RECORDS SUMMARY | 2025-07-05 18:23 | XMS_ITS | Clinical Summary ---
Author Organization [facility] Address [address] [place], [place] [phone] Phone Care Team Providers Care Bush Regenerator Name Role Phone Abbey Kurtz MD Primary [...] PPO CIGNA PPO CIGNA PPO Care Teams Bush Regenerator Relationship Specialty Start Date End Date Abbey Kurtz MD [address] [address] PCP - General Family Medicine 03/13/23 Additional Source Comments The information contained in this document represents components of the legal health record. It is not the complete legal health record.[facility]
--- OUTSIDE RECORDS SUMMARY | 2025-07-05 18:23 | XMS_ITS | Data Portability ---
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 Patient consented to video & audio visit Patient was located in the [facility]. Provider was located in the office. No [...] available Lab lipid panel, serum 2024 025 [place], [address] [place], [address], 06/25/2025 10:30:11 CBC w/ auto diff 2024 025 CHRISTINA [facility], [address] [place], [address], 03/26/2025 08:58:36 TSH, ultra- sensit ritika, serum 2024 025 [facility], [address], [place], [address], 06/25/2025 10:30:12 BMP, serum or plasma 2024 025 CHRISTINA [facility], [address], [place], [address], 03/26/2025 08:58:[address] referr al 2024 025 [facility], [address] [place] [address], [address], 11/09/2024 10:38:23 Procedures None record ed. Surgeries None record ed. Imaging XR, chest, 2 view 2023 024 Not available 06/26/2024 15:28:25 Medication Orders famoti dine 20 mg tablet 2024 025 [id number], [address] [place] [address], [id number], 03/26/2025 09:20:44 amlodi pine 2.5 mg tablet 2024 025 [facility], [address] [place] [address], [id number], 10/12/2024 09:51:35 losart an 50 mg tablet 2024 025 [facility], [address] [place] [address], [id number], 10/12/2024 09:44:42 Patient Targets Encounter Date Encounter Id Patient Goals Patient Target Last Modified By Organization Details Last Modified Time 08/13/2024 [id number] snf goal of Blood Pressure 140 / 90 Not available Not available Not available 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 Exercise level Not available Not available Not available 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 Tobacco Smoking Status Not available Not available Not available 08/13/2024 [id number] Pt advised and agrees to eat a [...] By Organization Details Last Modified Time 06/18/2024 [id number] allergies: care instructions Not available 06/18/2024 12:11:57 cold sores: care instructions Not available 06/18/2024 12:11:57 pulmonary function test* [email or web address] Not available 07/16/2024 11:40:53 methacholine challenge* - to be done with pft testing lmuler[place] Not available 07/01/2024 11:36:23 08/13/2024 [id number] Medications (OTC, herbal therapies, supplements) reviewed and reconciled with patient and or caregiver, including potential side effects, drug interactions, instructions, and the consequences of not taking medication. Reviewed potential barriers to medication adherence, such as side effects from medication or cost of medication. pmadden Not available 08/13/2024 15:37:35 10/12/2024 [id number] Patient will follow up and keep appointment as scheduled. pmadden Not available 10/12/2024 09:51:43 03/26/2025 [id number] allergies: care instructions Not available 03/26/2025 08:58:25 bladder training: care instructions Not available 03/26/2025 08:58:25 kegel exercises: care instructions Not available 03/26/2025 08:58:25 Stress Incontinence: Care Instructions Not available 03/26/2025 08:58:25 high blood pressure: care instructions Not available 03/26/2025 08:58:25 learning about high blood pressure Not available 03/26/2025 08:58:25 Reason for Referral Cinder Snapper Referral for Pain in bilateral feet Referring [...] SOFT TISSUE S: No acute abnorm ality. Christopher t has had a cholec ystect tori. IMPRES ERNIE: No acute abnorm ality. WSN: [id number] Orderi ng Physic driss: Heriberto Monet Dictat ed By: Robert Ayers MD Dictat ed Date/T deborah: 2:33 pm Review ed By: Robert Ayers MD Signed By: Robert Ayers MD Signed Date/T deborah: 2:33 pm Transc ribed By: SHABBIR Transc ribed Date/T deborah: 2:31 pm Christopher balderas Class: Outpat ient [facility] (Outpt Imaging) [address] , [place], [address], 06/26/2024 16:13:16 09/04/19 25 09/03/2024 MAMMO , [...] Lay letter mailed to christopher balderas WSN: [id number] Orderi ng Physic driss: Heriberto Monet Dictat ed By: Jose Raul Middleton MD Dictat ed Date/T deborah: 9:59 am Review ed By: Jose Raul Middleton MD Signed By: Jose Raul Middleton MD Signed Date/T deborah: 9:59 am Transc ribed By: CSB Transc riptio n Date/T deborha: 9:56 am Birads : Christopher balderas Class: Outpat ient [email or web address] [facility] (Outpt Imaging) [address] [place], [address], 09/04/2024 10:03:36 09/04/19 25 09/03/2024 MAMMO , scree licha, digit al, bilat eral No observ ation record ed. [facility] [address], [place], [address], 09/04/2024 10:14:10 Result Notes Documentation Provider Name [...] a cholecystectomy. IMPRESSION: No acute abnormality. WSN: [id number] Ordering Physician: Abbey Kurtz Dictated By: Robert Jarvis MD Dictated Date/Time: 06/26/24 2:33 pm Reviewed By: Robert Jarvis MD Signed By: Robert Jarvis MD Signed Date/Time: 06/26/24 2:33 pm Transcribed By: SHABBIR Transcribed Date/Time: 06/26/24 2:31 pm Patient Class: Outpatient ABBEY KURTZ MD [address], [address], [facility] 06/26/2024 16:10:30 Mammo, Screening, Digital, Bilateral : [...] (Benign) Lay letter mailed to patient WSN: [id number] Ordering Physician: Abbey Kurtz Dictated By: Jose Raul Mojica MD Dictated Date/Time: 09/04/24 9:59 am Reviewed By: Jose Raul Mojica MD Signed By: Jose Raul Mojica MD Signed Date/Time: 09/04/24 9:59 am Transcribed By: SHABBIR Machine Operator Date/Time: 09/04/24 9:56 am Birads: [facility] 10:03:36 Problems Name Problem SNOMED Code Status Onset Date Resolution Date Notes Provider Name and Address Organization Details Recorded Time Low back pain 722880067 Active Ryanne moreland null, [facility] 5 20:03:23 Acute sinusiti s 75306495 Completed 01/25/2017 Ryanne MartinezTrina aniceto tellez [facility] 7 15:37:55 Pain of hip region 11217876 Completed 11/17/2018 Removal Reason: not specific Corrine Forte rosalinda [facility] 9 10:42:32 Osteonec rosis of hip 340247152 Completed 05/12/2019 Removal Reason: dx not specific Corrine Forte rosalinda [facility] 9 10:07:22 Acute conjunct ivitis 31220889 Completed 01/25/2017 Ryanne MarinsandraFaridaTrina aniceto tellez [facility] 7 15:38:37 Osteonec rosis of head of femur 679511287 Active osteonec rosis, did see a speciali st for discussi on of surgery, not yet a candidat e ABBEY KURTZ MD [address], [facility] [place], [address] , [facility] 3 14:01:31 Malignan t lymphoma (clinica l) Completed 199502/16/2014 DATE: 1995; STORY: S/P CHEMOTHE RAPY, IN REMISSIO N; IMPRESSI ON: NO FURTHER SURVEILL ANCE NEEDED, DOING GREAT; RECORDED 11/13/19 14 12:34PM BY JOSE ALFREDO NELSON I ANNOTATI ON/ADDEN DUM Not Available [facility] 4 15:06:12 Malignan t lymphoma (clinica l) Completed 199503/15/2014 DATE: 1995; STORY: S/P CHEMOTHE RAPY, IN REMISSIO N; IMPRESSI ON: NO FURTHER SURVEILL ANCE NEEDED, DOING GREAT; RECORDED 11/13/19 14 12:34PM BY JOSE ALFREDO NELSON I ANNOTATI ON/ADDEN DUM Not Available [facility] 4 05:41:10 Generali zed abdomina l pain 221134954 Completed 200702/16/2014 IMPRESSI ON: I SPOKE WITH DR YECENIA MARRUFO, PT THERE WITH ABD PAIN, PANCREAT ITIS AND GALLSOTN ES AND DILATED CBD. WILL BE ADMITTED AND USE DR MILKA GAL[facility]IZ [facility]; RECORDED 04/21/20 08 8:12AM BY THERESA BOYLE, ANNOTATI ON/ADDEN DUM Not Available [facility] 4 15:06:10 General examinat ion of patient Completed 200702/16/2014 IMPRESSI ON: PAP UTD, EXERCISE S, DOING WELL; RECORDED 04/21/20 08 8:12AM BY THERESA BOYLE ANNOTATI ON/ADDEN DUM Not Available [facility] 4 15:06:11 Generali zed abdomina l pain 647122820 Completed 200703/15/2014 IMPRESSI ON: I SPOKE WITH DR YECENIA MARRUFO, PT THERE WITH ABD PAIN, PANCREAT ITIS AND GALLSOTN ES AND DILATED CBD. WILL BE ADMITTED AND USE DR MILKA GAL[facility]; RECORDED 04/21/20 08 8:12AM BY EFREM COLÓNATI ON/ADDEN DUM Not Available [facility] 4 05:41:09 General examinat ion of patient Completed 200703/15/2014 IMPRESSI ON: PAP UTD, EXERCISE S, DOING WELL; RECORDED 04/21/20 08 8:12AM BY THERESA BOYLE, ANNOTATI ON/ADDEN DUM Not Available [facility] 4 05:41:09 Knee pain Completed 200802/16/2014 IMPRESSI [...] THERESA BOYLE, ANNOTATI ON/ADDEN DUM Not Available [facility] 4 05:41:10 Diaper rash 02324078 Completed 200802/16/2014 RECORDED 11/18/19 09 9:58AM BY BRANDAN KAT MA, ANNOTATI ON/ADDEN DUM Not Available [facility] 4 15:06:11 Diaper rash 42396108 Completed 200803/15/2014 RECORDED 11/18/19 09 9:58AM BY BRANDAN KAT MA, ANNOTATI ON/ADDEN DUM Not Available [facility] 4 05:41:09 Influenz a vaccine needed 45531077375 06 Completed 201002/16/2014 DATE: 09/07/19 11; RECORDED 07/03/20 13 10:40AM BY GERMAIN BURR MA, ANNOTATI ON/ADDEN DUM Not Available [facility] 4 15:06:11 Influenz a vaccine needed 48126351755 06 Completed 201003/15/2014 DATE: 09/07/19 11; RECORDED 07/03/20 13 10:40AM BY GERMAIN BURR MA, ANNOTATI ON/ADDEN DUM Not Available [facility] 4 05:41:09 Elevated blood-pr essure reading without diagnosi s of hyperten ernie 227853032 Completed 201002/16/2014 IMPRESSI ON: 14BP'S AT HOME 120'S OVER 70'S, CONTINUE TO CHECK AT HOME, 6 MONTH FOLLOWUP ; RECORDED 12/02/19 11 10:53AM BY BRANDAN KAT MA, ANNOTATI ON/ADDEN DUM Not Available [facility] 4 15:06:11 Elevated blood-pr essure reading without diagnosi s of hyperten ernie 976292255 Completed 201003/15/2014 IMPRESSI ON: 14BP'S AT HOME 120'S OVER 70'S, CONTINUE TO CHECK AT HOME, 6 MONTH FOLLOWUP ; RECORDED 12/02/19 11 10:53AM BY BRANDAN KAT MA, EFREMATI ON/ADDEN DUM Not Available [facility] 4 05:41:09 Abdomina l pain 75955528 Completed 201102/16/2014 IMPRESSI ON: AFEBRILE , NON-ACUT E ABDOMEN; RECORDED 06/19/20 12 10:28AM BY EFREM SUHATI ON/ADDEN DUM Not Available [facility] 4 15:06:10 Amenorrh ea 24701200 Completed 201102/16/2014 RECORDED 06/19/20 12 10:28AM BY EFREM SUHATI ON/ADDEN DUM Not Available [facility] 4 15:06:10 Screenin g for malignan t neoplasm of cervix Completed 201102/16/2014 RECORDED 06/19/20 12 10:28AM BY EFREM SUHATI ON/ADDEN DUM Not Available [facility] 4 15:06:11 Impetigo 45500478 Completed 201102/16/2014 RECORDED 06/19/20 12 10:28AM BY EFREM SUHATI ON/ADDEN DUM Not Available [facility] 4 15:06:12 Large cell anaplast ic lymphoma Completed 201102/16/2014 RECORDED 06/19/20 12 10:28AM BY EFREM SUHATI ON/ADDEN DUM Not Available [facility] 4 15:06:12 Malaise and fatigue 509932196 Completed 201102/16/2014 IMPRESSI ON: MOOD GOOD, WILL WEAN OFF ZOLOFT OVER 2 MONTHS; RECORDED 06/19/20 12 10:28AM BY JOSE ALFREDO NELSON I ANNOTATI ON/ADDEN DUM Not Available [facility] 4 15:06:12 Abdomina l pain 38012173 Completed 201103/15/2014 IMPRESSI ON: AFEBRILE , NON-ACUT E ABDOMEN; RECORDED 06/19/20 12 10:28AM BY JOSE ALFREDO NELSON I ANNOTATI ON/ADDEN DUM Not Available [facility] 4 05:41:09 Amenorrh ea 47213718 Completed 201103/15/2014 RECORDED 06/19/20 12 10:28AM BY JOSE ALFREDO NELSON I ANNOTATI ON/ADDEN DUM Not Available [facility] 4 05:41:09 Screenin g for malignan t neoplasm of cervix Completed 201103/15/2014 RECORDED 06/19/20 12 10:28AM BY JOSE ALFREDO NELSON I ANNOTATI ON/ADDEN DUM Not Available [facility] 4 05:41:09 Impetigo 72016312 Completed 201103/15/2014 RECORDED 06/19/20 12 10:28AM BY JOSE ALFREDO NELSON I ANNOTATI ON/ADDEN DUM Not Available [facility] 4 05:41:09 Large cell anaplast ic lymphoma Completed 201103/15/2014 RECORDED 06/19/20 12 10:28AM BY JOSE ALFREDO NELSON I ANNOTATI ON/ADDEN DUM Not Available [facility] 4 05:41:10 Malaise and fatigue 236236097 Completed 201103/15/2014 IMPRESSI ON: MOOD GOOD, WILL WEAN OFF ZOLOFT OVER 2 MONTHS; RECORDED 06/19/20 12 10:28AM BY JOSE ALFREDO NELSON I ANNOTATI ON/ADDEN DUM Not Available [facility] 4 05:41:10 Candidal vulvovag initis 04048044 Completed 201202/16/2014 RECORDED 10/24/19 13 10:17AM BY GERMAIN BURR MA, ANNOTATI ON/ADDEN DUM Not Available [facility] 4 15:06:13 Candidal vulvovag initis 84804015 Completed 201203/15/2014 RECORDED 10/24/19 13 10:17AM BY GERMAIN BURR MA, ANNOTATI ON/ADDEN DUM Not Available [facility] 4 05:41:10 Conjunct ivitis 8713200 Completed 201202/16/2014 RECORDED 03/11/20 13 10:11AM BY ULISES REDDY MA, ANNOTATI ON/ADDEN DUM Not Available [facility] 4 15:06:11 Joint pain in ankle and foot Completed 201202/16/2014 IMPRESSI ON: INVERSIO N INJURY, PT TO SEE DR FINCH , ? [facility]; RECORDED 03/11/20 13 10:11AM BY ULISES REDDY MA, ANNOTATI ON/ADDEN DUM Not Available [facility] 4 15:06:13 Conjunct ivitis 2284963 Completed 201203/15/2014 RECORDED 03/11/20 13 10:11AM BY ULISES REDDY MA, ANNOTATI ON/ADDEN DUM Not Available [facility] 4 05:41:09 Joint pain in ankle and foot Completed 201203/15/2014 IMPRESSI ON: INVERSIO N INJURY, PT TO SEE DR FINCH , ? [facility]; RECORDED 03/11/20 13 10:11AM BY ULISES REDDY MA, ANNOTATI ON/ADDEN DUM Not Available [facility] 4 05:41:10 Acute sinusiti s 57265039 Completed 201202/16/2014 IMPRESSI ON: INITIATE D BY ALLERGIE S. HOLD 2 DAYS FOR AUGMENTI N. START DOING NETI-POT AND FLONASE FIRST. TAKE AUGMENTI N IF NO IMPROVEM ENT.; RECORDED 06/08/20 13 3:41PM BY GERMAIN BURR MA ANNOTATI ON/ADDEN DUM Ryanne tellez MA [facility] 7 15:37:55 Patient status finding 004826201 Completed 201202/16/2014 RECORDED 06/08/20 13 3:41PM BY GERMAIN BURR MA ANNOTATI ON/ADDEN DUM Ryanne tellez MA [facility] 7 15:37:53 Acute sinusiti s 86951601 Completed 201203/15/2014 IMPRESSI ON: INITIATE D BY ALLERGIE S. HOLD 2 DAYS FOR AUGMENTI N. START DOING NETI-POT AND FLONASE FIRST. TAKE AUGMENTI N IF NO IMPROVEM ENT.; RECORDED 06/08/20 13 3:41PM BY GERMAIN BURR MA, ANNOTATI ON/ADDEN DUM Ryanne tellez [facility] - [facility] 7 15:37:55 Acute pharyngi tis 174512682 Completed 201302/16/2014 IMPRESSI ON: SEEMS LIKE INFLAMED LYMPH NODE, TIME AND REST NO EVIDENCE OF INFECTIO N; RECORDED 11/13/19 14 12:34PM BY EFREM SUHATI ON/ADDEN DUM Not Available [facility] 4 15:06:10 Hand foot and mouth disease 004887714 Completed 201302/16/2014 RECORDED 11/13/19 14 12:34PM BY JOSE ALFREDO NELSON I ANNOTATI ON/ADDEN DUM Not Available [facility] 4 15:06:11 Eruption 020443775 Completed 201302/16/2014 RECORDED 11/13/19 14 12:34PM BY EFREM SUHATI ON/ADDEN DUM Not Available [facility] 4 15:06:13 Acute pharyngi tis 481131933 Completed 201303/15/2014 IMPRESSI ON: SEEMS LIKE INFLAMED LYMPH NODE, TIME AND REST NO EVIDENCE OF INFECTIO N; RECORDED 11/13/19 14 12:34PM BY EFREM SUHATI ON/ADDEN DUM Not Available [facility] 4 05:41:09 Hand foot and mouth disease 785293509 Completed 201303/15/2014 RECORDED 11/13/19 14 12:34PM BY EFREM SUHATI ON/ADDEN DUM Not Available [facility] 4 05:41:09 Eruption 180224507 Completed 201303/15/2014 RECORDED 11/13/19 14 12:34PM BY EFREM SUHATI ON/ADDEN DUM Not Available [facility] 4 05:41:10 Allergic rhinitis 82560582 Active 2013 IMPRESSI ON: USE FLONASE MOST OF THE YR. SHE HAD NORMAL EYE EXAM THIS YEAR. WE DISCUSSE D TO GET YEARLY EXAMS IF ON FLONASE YEAR ROUND; RECORDED 12/24/19 14 9:02AM BY BRANDAN KAT MA, OFFICE VISIT Dino Baez MD [address] [address], [place], [address] , [facility] 5 08:41:17 Anemia 117307876 Completed 201301/25/2017 STORY: MILD (LABS ON 10/11); RECORDED 12/24/19 14 9:02AM BY BRANDAN KAT MA, OFFICE VISIT Ryanne tellez [facility] 7 15:38:25 Adult health examinat ion Completed 201302/16/2014 IMPRESSI ON: PAP UTD, IS AND DOING WELL.; RECORDED 12/24/19 14 9:01AM BY BRANDAN KAT MA, ANNOTATI ON/ADDEN DUM Not Available [facility] 4 15:06:11 Anxiety state 533064399 Completed 201301/25/2017 RECORDED 12/24/19 14 9:02AM BY BRANDAN KAT MA, OFFICE VISIT Ryanne tellez [facility] 7 15:48:19 History of malignan t neoplasm 212981220 Completed 201304/29/2018 STORY: LARGE CELL, IN REMISSIO N 1996; RECORDED 12/24/19 14 9:02AM BY BRANDAN KAT MA, OFFICE VISIT Ryanne tellez [facility] 8 15:57:04 Pure hypercho lesterol emia 286967704 Completed 201301/25/2017 RECORDED 12/24/19 14 9:02AM BY BRANDAN KAT MA, OFFICE VISIT Ryanne tellez [facility] 7 15:38:18 Essentia l hyperten ernie 86281018 Completed 201301/25/2017 IMPRESSI ON: PT IS OFF MEDS AND BP IS GREAT, IT WILL BE CLOSELY MONITORE D DUE TO PREGNANC Y; RECORDED 12/24/19 14 9:02AM BY BRANDAN KAT MA, OFFICE VISIT Kathy Bhatia MA null, [facility] 8 14:04:02 Migraine 09542868 Active 2013 IMPRESSI ON: VERY BOTHERSO ME TO PT, I ADVISED HER TO AVOID IMITREX OR FIORICET DUE TO TRYING TO GET . PT MOST LIKELY GETTING MIGRAINE S RELATED TO BAROMETR IC/SINUS TRIGGER. IRRIGATE , LIMITED WITH MEDS BUT ONCE DONE GETTIGN WOULD BENEFIT FORM TCA; RECORDED 12/24/19 14 9:02AM BY BRANDAN KAT MA, OFFICE VISIT Ryanne tellez [facility] 5 17:49:45 Non-neop lastic nevus 154570091 Completed 201301/25/2017 RECORDED 12/24/19 14 9:02AM BY BRANDAN KAT MA, OFFICE VISIT Ryanne tellez [facility] 7 15:37:58 Patient status finding 968905935 Completed 201301/25/2017 RECORDED 12/24/19 14 9:03AM BY BRANDAN KAT MA, OFFICE VISIT Ryanne tellez [facility] 7 15:37:53 Chronic sinusiti s 15924940 Completed 201301/25/2017 IMPRESSI ON: ENCOURAG E REST AND HYDRATIO N. RTC IF PERSISTE NT OR WORSENIN G SYMPTOMS .; RECORDED 12/24/19 14 9:23AM BY SAVANNAH DAY PA-C, OFFICE VISIT [facility] 7 15:38:31 Adult health examinat ion Completed 201303/15/2014 IMPRESSI ON: PAP UTD, IS AND DOING WELL.; RECORDED 12/24/19 14 9:01AM BY BRANDAN KAT MA, ANNOTATI ON/ADDEN DUM Not Available [facility] 4 05:41:09 Degenera tion of lumbar interver tebral disc 26926755 Completed 201301/25/2017 RECORDED 12/24/19 14 9:02AM BY BRANDAN KAT MA, OFFICE VISIT Ryanne tellez [facility] 7 15:48:16 At increase d risk for cardiova scular event 650982842 Completed 201710/05/2019 Ryanne tlelez [facility] 0 14:41:28 History of malignan t lymphoma 222726664 Active 2017 Ryanne tellez [facility] 8 15:56:59 Family history of cardiac disorder 098375591 Active 2017 Ryanne tellez [facility] 8 16:39:31 Essentia l hyperten ernie 47733787 Active 2017 THERESA Valverde [facility] 8 14:04:02 Pain of hip region 98340876 Completed 201811/17/2018 Removal Reason: not specific Corrine Forte rosalinda [facility] 9 10:42:32 Osteonec rosis of hip 961708573 Completed 201805/12/2019 Removal Reason: Not Specific Corrine Forte rosalinda [facility] 9 10:07:22 Female urinary stress incontin ence 86930418 Active 2019 THERESA Valverde [facility] 0 14:21:35 Hypokale say 36742234 Completed 202003/19/2024 ABBEY KURTZ MD [address] [facility] [address], [place], [address] , [facility] 4 07:37:12 Pain of right ankle joint 80335492401 190406 Completed 202303/26/2025 ABBEY KURTZ MD [address] [facility] [address], [place], [address] , [facility] 5 09:24:35 Pain in right lower limb 352484339 Completed 202303/26/2025 ABBEY KURTZ MD [address] [facility] [address], [place], [address] , [facility] 5 09:24:43 Pain of toe of left foot 08117100790 9108 Completed 202403/26/2025 ABBEY KURTZ MD [address] [facility] [address], [place], [address] , [facility] 5 09:24:29 Pain in bilatera l feet 09916437717 170445 Completed 202403/26/2025 ABBEY KURTZ MD [address] [facility] [address], [place], [address] , [facility] 5 09:24:26 Erythrom elalgia 72009314 Active 2024 ABBEY KURTZ MD [address] [facility] [address], [place], [address] , [facility] 5 07:53:31 Problem Notes None recorded. Procedures Surgical History Date Name Laterality Status Provider Name and Address Organization Details Recorded Time 09/04/19 25 Most Recent Mammogram completed Antonella Martines [facility] 09/04/2024 10:03:33 03/13/20 23 Colonoscopy completed Antonella Martines [facility] 03/14/2023 09:47:05 08/13/19 23 Mammogram both breasts completed Kyra Echavarria [facility] 08/15/2022 12:25:21 08/05/19 23 Date of Last Pap Smear completed Kathy Bhatia MA [facility] 02/07/2023 13:53:55 02/07/20 22 Mammogram one breast completed Kusum Rodriges [facility] 02/09/2022 11:04:15 02/03/20 21 Ultrasound breast limited completed Apoorva Brewster [facility] 02/27/2021 13:57:38 02/29/20 20 biopsy of breast completed Brandan reddy MA [facility] 11/12/2022 16:12:38 07/07/20 19 repair of stress incontinence by suprapubic sling completed Katyh Bhatia MA [facility] 10/05/2019 14:24:39 07/07/20 19 anterior colporrhaphy for repair of cystocele without repair of urethrocele completed Brandan Kilgore-Frantzsherrie reddy MA [facility] 11/12/2022 16:11:19 10/15/18 96 Appendectomy completed Kathy Bhatia MA [facility] 01/12/2022 15:25:24 10/03/18 96 Cancer Surgery completed Kathy Bhatia MA [facility] 01/12/2022 15:25:23 Cholecystectomy completed Brandan Kilgore-Frantzsherrie reddy MA [facility] 11/12/2022 16:00:18 nasal septoplasty completed Brandan Kilgore-Frantz osTHERESA [facility] 11/12/2022 16:13:00 lengthening of tendon of upper arm completed Brandan Kilgore-Frantz maureen, THERESA [facility] 11/12/2022 16:13:41 Imaging Results None recorded. Procedure Notes None recorded. Medical Equipment None Reported. Allergies Allergen ID Allergen Name Allergen Category Reaction Reaction Severity Criticality Documentation Date Start Date Code Code System Note Provider Name and Address Organization Details Recorded Time 7062 Procardia medicatio n edema tachycard ia Not available Not available Not available 02/16/2014201342 3 RxNorm Prasanna Joya PA-C [address] [facility] [address], [place], [address], [facility] 5 09:51:11 7063 vancomyci n hydrochlo ride medicatio n rash Not available Not available 02/16/20142013 [id number] RxNorm Brandan kumar MA null, [facility] 3 15:49:42 Medications Name Sig Start Date [...] Not Available amlodipin e 2.5 mg tablet Take 1 tablet every day by oral route at bedtime for 90 days. 2024 active Not Available Not Available Not Avai lable potassium chloride ER 10 mEq tablet,ex tended [...] 03/09 completed RECORDED 03/09/20 11 1:09PM BY KATHY BHATIA, MEDICATI ON AUTO-MAGALYS CTIVATIO N; Not Available [...] 12 4:25PM BY DANK YU, EFREMATI ON/ADDEN DUM; Not Available Not Available Not [...] Available Not Available Nasonex 50 mcg/actua tion Lapoint DAILY IN EACH NOSTRIL 11/10 completed RECORDED [...] 09/10/19 12 3:55PM BY RYANNE Boudreaux MD, EFREMATI ON/ADDEN DUM; Not Available Not Available Not Available labetalol TWO TIMES DAILY, NEEDED active RECORDED 03/11/20 13 10:57AM BY PHILIP PERAZA, EFREMATI ON/ADDEN DUM; Not Available Not Available Not [...] RECORDED 06/18/20 12 4:25PM BY DANK YU, ELMER ON/ADDEN DUM;OTC Not Available Not Available Not [...] Relief 50 mcg/actua tion nasal spray,mickey pension Lapoint 1 spray every day by intranas al [...] (BMI) Body weight Heart rate Oxygen saturation Body temperature Systolic And Diastolic Provider Name and Address Organization Details Last Updated DateTime 5 165.74 cm 24.3 kg/m2 06090.7 8 g 79 /min 98 % 98.2 [degF] 150/89 mm[Hg] Savannah Garcia MA [facility] [place] 5 15:09:16 Date Recorded Body height Body mass index (BMI) Body weight Heart rate Oxygen saturation Body temperature Systolic And Diastolic Provider Name and Address Organization Details Last Updated DateTime 165.74 cm 24.3 kg/m2 96329.0 8 g 98 /min 100 % 98.3 [degF] 122/88 mm[Hg] Tati Barrow MA [facility] 5 09:06:38 Date Recorded Systolic And Diastolic Provider Name and Address Organization Details Last Updated DateTime 11/12/2024 146/87 mm[Hg] ABBEY KURTZ MD [address], [place], [address], [facility] 11/12/2024 14:49:57 Date Recorded Body height Body mass index (BMI) Body weight Heart rate Oxygen saturation Body temperature Systolic And Diastolic Provider Name and Address Organization Details Last Updated DateTime 165.74 cm 24.6 kg/m2 45444.2 6 g 76 /min 100 % 97.7 [degF] 135/88 mm[Hg] Savannah Garcia MA [facility] 14:36:46 Date Recorded Systolic And Diastolic Provider Name and Address Organization Details Last Updated DateTime 11/15/2024 124/80 mm[Hg] Swapnil Moore RN [facility] 11/24/2024 11:41:16 Date Recorded Systolic And Diastolic Provider Name and Address Organization Details Last Updated DateTime 11/16/2024 117/84 mm[Hg] Swapnil Moore RN [place] [facility] 11/24/2024 11:39:22 Date Recorded Systolic And Diastolic Provider Name and Address Organization Details Last Updated DateTime 11/17/2024 123/85 mm[Hg] CRISTINA Brooks MA [facility] 11/24/2024 11:39:42 Date Recorded Systolic And Diastolic Provider Name and Address Organization Details Last Updated DateTime 11/18/2024 121/87 mm[Hg] CRISTINA Brooks MA [facility] 11/24/2024 11:40:27 Date Recorded Systolic And Diastolic Provider Name and Address Organization Details Last Updated DateTime 11/19/2024 121/86 mm[Hg] Swapnil Moore RN [facility] 11/24/2024 11:41:56 Date Recorded Systolic And Diastolic Provider Name and Address Organization Details Last Updated DateTime 11/20/2024 123/85 mm[Hg] Swapnil Moore RN [facility] 11/24/2024 11:42:23 Date Recorded Systolic And Diastolic Provider Name and Address Organization Details Last Updated DateTime 11/21/2024 121/81 mm[Hg] Swapnil Moore RN [facility] 11/24/2024 11:42:58 Date Recorded Body height Body mass index (BMI) Body weight Heart rate Oxygen saturation Body temperature Systolic And Diastolic Provider Name and Address Organization Details Last Updated DateTime 165.74 cm 24.6 kg/m2 05933.2 6 g 77 /min 99 % 98 [degF] 118/81 mm[Hg] Tati Barrow MA [facility] 08:34:53 Date Recorded Body height Provider Name an d Address Organization Details Last Updated DateTime 06/18/2024 165.74 cm Kathy Bhatia MA [facility] 06/18/2024 11:23:23 Social History Question Answer Notes LastModified by Organizat ion Details LastModified Time Tobacco Smoking Status Never Smoker [facility] 11/17/2014 15:40:32 Is Blood Transfusion Acceptable In An Emergency? Yes Information not available 01/25/2017 What Is Your Level Of Caffeine Consumption? Occasional [email or web address] Information not available 11/17/2014 How Much Tobacco Do You Chew? None Information not available 01/25/2017 In The 14 Days Before Symptom Onset, Have You Had Close Contact With A Laboratory-confi rmed COVID-19 While That Case Was Ill? No [...] Type Of Diet Are You Following? REGULAR [email or web address] Information not available 11/17/2014 Which Illicit Or [...] Or Greater Than 100 Degrees Fahrenheit? No [email or web address] Information not available 03/22/2020 Are You Or Anyone In Your Household A Health Care Provider Or Emergency Responder? No [email or web address] Information not available 03/22/2020 To The Best Of Your Knowledge Have You Been In Close Proximity To Any Individual Who Tested Positive For COVID-19? No [email or web address] Information not available 03/22/2020 Have You Recently Traveled To A COVID-19 High Risk Area Or Gathering In The Last 10 Days? No [email or web address] Information not available 05/31/2021 What Was The Date Of Your Most Recent Tobacco Screening? 03/26/2025 [email or web address] Information not available 03/26/2025 How Many Children Do You Have? 2 [email or web address] Information not available 11/17/2014 Do You Use [...] 01/12/2022 Do You Use Sunscreen Routinely? Yes [email or web address] Information not available 11/17/2014 Sex: Unknown Functional Status Question Answer Note LastModified by Organizat ion Details LastModified Time Do you use any illicit or recreational drugs? No [email or web address] Information not available 03/20/2024 What is your level of alcohol consumption? Occasional Information not available 11/17/2014 Do you or have you ever used smokeless tobacco? Never used smokeless tobacco [email or web address] Information not available 05/11/2019 Are you currently employed? Yes [email or web address] Information not available 11/17/2014 Are you able to walk independently without assistance or assistive devices? YESWOREST [email or web address] Information not available 01/12/2022 Are you able to care for yourself independently? 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 Never used electronic cigarettes Information not available 01/12/2022 What is your exercise level? Heavy [email or web address] Information not available 01/12/2022 Mental Status None [...] virus, quadrivalent, preservative 8 completed THERESA Waddell [facility] 09/20/2023 10:06:53 Influenza, split virus, quadrivalent, preservative 9 completed THERESA Valverde [facility] 05/11/2019 15:44:37 MMR 0 completed Kusum tellez [facility] 06/22/2019 14:36:24 MMR 1 completed Kusum tellez [facility] 06/22/2019 14:36:38 Influenza, split virus, quadrivalent, preservative 1 completed THERESA Waddell [facility] 09/20/2023 10:06:53 COVID-19, mRNA, LNP-S, PF, 100 mcg/0.5mL dose or 50 mcg/0.25mL dose 1 completed THERESA Valverde [facility] 08/23/2021 16:03:04 COVID-19, mRNA, LNP-S, PF, 100 mcg/0.5mL dose or 50 mcg/0.25mL dose 1 completed THERESA Aguirre, [facility] 11/12/2022 15:49:26 COVID-19, mRNA, LNP-S, PF, 100 mcg/0.5mL dose or 50 mcg/0.25mL dose 1 completed THERESA Valverde, [facility] 08/23/2021 16:04:32 Influenza, MDCK, quadrivalent, PF 8 completed THERESA Sy, [facility] 10/09/2021 14:09:10 Influenza, split virus, quadrivalent, PF 1 completed THERESA Sy, [facility] 10/09/2021 14:09:10 Influenza, split virus, quadrivalent, PF 0 completed THERESA Sy, [facility] 10/09/2021 14:09:10 Influenza, split virus, quadrivalent, PF 7 completed THERESA Sy, [facility] 10/09/2021 14:09:10 COVID-19, mRNA, LNP-S, PF, 100 mcg/0.5mL dose or 50 mcg/0.25mL dose 1 completed THERESA Aguirre, [facility] 11/12/2022 15:49:26 COVID-19, mRNA, LNP-S, PF, 100 mcg/0.5mL dose or 50 mcg/0.25mL dose 1 completed THERESA Waddell, [facility] 10/05/2022 15:56:09 Tdap 5 completed THERESA Waddell, [facility] 10/05/2022 15:55:08 COVID-19, mRNA, LNP-S, PF, 100 mcg/0.5mL dose or 50 mcg/0.25mL dose 1 completed THERESA Waddell, [facility] 10/05/2022 15:56:09 Influenza, split virus, quadrivalent, PF 3 completed THERESA Waddell, [facility] 09/20/2023 10:06:53 Influenza, split virus, trivalent, PF 4 completed THERESA Valverde, [facility] 06/18/2024 11:23:29 Tdap 7 completed Not Available [facility] 02/16/2014 14:00:18 Novel Quyvaovaj-[id number] , all formulations 0 completed Not Available [facility] 02/16/2014 14:00:18 Influenza, split virus, trivalent, preservative 0 completed Not Available [facility] 02/16/2014 14:00:18 Influenza, split virus, trivalent, preservative 1 completed Not Available [facility] 02/16/2014 14:00:18 Influenza, split virus, trivalent, preservative 3 completed Not Available [facility] 02/16/2014 14:00:18 Past Encounters Encounter ID Performer Location Encounter Start Date Encounter Closed Date Diagnosis/Indication Diagnosis SNOMED-CT Code Diagnosis ICD10 Code Diagnosis IMO Codes Diagnosis Note [id number] [facility] [address] [facility] [place] [address] 03/27/2005 00:00:00 [id number] [facility] [address] [facility] [place] [address] 03/11/2006 00:00:00 [id number] auto[facility] erce [address] [facility] [place] [address] 03/20/2006 00:00:00 [id number] auto[facility] erce [address] [facility] [place] [address] 11/25/2006 00:00:00 [id number] auto[facility] erce [address] [facility] [place] [address] 02/27/2007 00:00:00 [id number] [address] [place] [address] 03/26/2007 00:00:00 [id number] [address] [address] [place] [address] 05/29/2007 00:00:00 [id number] [facility] [address] [place] [address] 08/29/2007 00:00:00 [id number] auto[facility]Comm erce [address] [facility] [address] [place] [address] 12/03/2007 00:00:00 [id number] auto[facility]Comm erce [address] [facility] [address] [place] [address] 04/21/2008 00:00:00 [id number] autoEComm erce [address] [facility] [address] [place] [address] 08/18/2008 00:00:00 [id number] autoEComm erce [address] [facility] [place] [address] 11/17/2008 00:00:00 [id number] autoEComm erce [address] [facility] [address] [place] [address] 12/07/2008 00:00:00 [id number] autoEComm erce [address] [facility] [place] [address] 12/23/2008 00:00:00 [id number] autoEComm erce [address] [facility] [address] [place] [address] 02/16/2009 00:00:00 [id number] auto[facility]Comm erce [address] [facility] [address] [place] [address] 08/24/2009 00:00:00 [id number] autoEComm erce [address] [facility] [place] [address] 01/06/2010 00:00:00 [id number] [address] [address] [place] [address] 03/02/2010 00:00:00 [id number] [address] [address] [place] [address] 09/07/2010 00:00:00 [id number] [facility] [facility] [address] [place] [address] 12/01/2010 00:00:00 [id number] [facility] [facility]ce [address] [place] [address] 03/02/2011 00:00:00 [id number] auto[facility] erce [address] [place] [address] 03/08/2011 00:00:00 [id number] autoEComm erce [address] [facility] [address] [place] [address] 05/16/2011 00:00:00 [id number] auto[facility]Comm erce [address] [place] [address] 09/10/2011 00:00:00 [id number] autoEComm erce [address] [facility] [address] [place] [address] 06/19/2012 00:00:00 [id number] autoEComm erce [address] [facility] [place] [address] 09/06/2012 00:00:00 [id number] auto[facility]Comm erce [address] [place] [address] 10/23/2012 00:00:00 [id number] auto[facility]Comm erce [address] [place] [address] 11/10/2012 00:00:00 [id number] autoEComm erce [address] [facility] [address] [place] [address] 03/11/2013 00:00:00 [id number] auto[facility]Comm erce [address] [place] [address] 06/08/2013 00:00:00 [id number] autoEComm erce [address] [facility] [place], [place] [address] 07/03/2013 00:00:00 [id number] autoEComm erce [address] [place],[address] [place] [address] 08/31/2013 00:00:00 [id number] auto[facility] erce [address] [facility] [place], [place] [address] 11/12/2013 00:00:00 [id number] autoEComm erce [address] [facility] [place], [place] [address] 12/23/2013 00:00:00 [id number] Ryanne moreland MD Main Office [address] [facility] [address] [place], [place] [address] 11/17/2014 15:16:33 11/17/2014 16:00:33 Adult health examination 002012520 pap is utd, pt is trying to be active Low back pain 544174376 on going, will see provider at [facility], has tried PT [id number] JORI Peraza Main Office [address] [facility] [address] [place], [place] [address] 01/21/2015 10:50:06 01/21/2015 11:36:38 Acute sinusitis 02078094 Migraine 40441347 sinusiti s triggering her migraines. she will take another imitrex when she gets home. [id number] Ryanne moreland MD Main Office [address] [facility] [address] [place], [place] [address] 02/17/2015 15:50:13 02/17/2015 16:17:37 Low back pain 667835700 ongoing, will see provider at [facility], has tried PT [id number] Dino Baez MD Main Office [address] [facility] [address] [place], [place] [address] 03/12/2015 08:56:14 03/12/2015 09:54:46 Pain of hip region 91368785 Recent imaging suggestive of avascular necrosis. Unable to take more NSAIDS because of migraine triggers. Will use narcotic for short term as needed pain control while awaiting MRI and orthopedic eval. [id number] Dino Baez MD Main Office [address] [place] [address] 04/07/2015 08:03:47 04/07/2015 08:36:33 Acute sinusitis 52909688 Recurrent issue, likely triggered by allergic inflammati on based on history and exam findings. Will treat for secondary bacterial process based on duration of symptoms. Call inb/worse over next 5-7 days as different abx vs short course of prednisone may be warranted. Allergic rhinitis 66496566 Try managing with topical steroid, sinus irrigation and decongesta nt. If effective drainage not obtained short course of oral steroid may need to be considered . [id number] Ryanne moreland MD Main Office [address] [place] [address] 06/29/2015 12:33:23 06/29/2015 13:45:13 Low back pain 745163920 M54.5 ongoing, pt is very frustrated and her quality of life is affected, unable to carry her kids, she is followed by pain management and is not getting any better, she is asking for me to talk to them about the next step. 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 History of malignant lymphoma 782795742 Z85.79 dx 1995 Osteonecrosis of hip 444 777654 M87.859 [id number] Odette Joya PA-C Main Office [address] [facility] [address] [place] [address] 04/22/2018 15:04:08 04/22/2018 16:07:07 Essential hypertension 61367380 I10 Start HCTZ 25 mg daily. Continue testing BP at wk and home. REturn for recheck on 04/29. Pain in calf 538933285 M 79.662 R/o DVT. Ultrasoun scheduled for later today. [facility] ed risk for cardiovascular event 056696292 Z91.89 High cardiac risk . Will set up for stress echo. [id number] Ryanne moreland MD Main Office [address] [facility] [address] [place] [address] 04/29/2018 15:19:23 04/29/2018 16:16:23 Adult health examination 134403088 Z00.00 pap is utd, pt will get flu shot at work will see security lead in a few months and get mammogram when she turns 38 restart exercise Essential hypertension 99893131 I10 BP is much better, will recheck in 2 months and check labs pt to get stress echo for atypical symptoms of left sided chest pain a few weeks ago, has a strong family hx of heart disease History of malignant lymphoma 925410757 Z85.79 dx 1995 goes to cancer once a year, gets blood work Osteonecrosis of hip 444 356572 M87.859 rarely bother her if she keeps exercising and stretching . Family his tory of cardiac disorder 800998433 Z82.49 father with an DE at 40 [id number] Odette Joya PA-C Main Office [address] [facility] [address] [place] [address] 06/17/2018 11:18:23 06/17/2018 12:14:16 Dysuria 00227607 R30.0 Blood in urine 91186701 R31.9 [id number] Ryanne moreland MD Main Office [address] [facility] [address] [place] [address] 07/14/2018 13:49:44 07/14/2018 14:45:47 Essential hypertension 82856258 I10 BP controlled on current treatment, will have her see nephrology for consult due to age. Lab today. Pt with a hx of preeclamps ia and then presented with accelerate d htn, hctz has controlled BP very well and feels much better on med, father with htn, refer to renal due to age, hx of preeclamps ia Migraine 68514874 G43.90 9 better, less often, controlled on meds, follows with neuro Pain of hip region 97877 002 M25.559 stable, continue exercise program [id number] Ryanne moreland MD Main Office [address] [place] [address] [place] [address] 11/14/2018 14:47:56 11/14/2018 15:44:56 Essential hypertension 43800568 I10 followed by renal, hx of preeclamps ia Pain of hip region 75331 002 M25.552 stable, continue exercise program Diverticul itis of colon 617025612 K57.32 presumed first case of diverticul itis, will treat empiricall y and get CT scan to rule out other entity, unlikely any complicati on (abscess.. ) therefore ok if CT is in a few days due to scheduling /insurance approval, continue tx. [id number] Ryanne moreland MD Main Office [address] [facility] [address] [place] [address] 05/11/2019 15:16:55 05/11/2019 16:15:59 Adult health examination 478679551 Z00.00 pap is utd Screening for malignant neoplasm of breast 791040476 Z12.39 pt to arrange Migraine 10788354 G43.90 9 just started monthly injecitons for suppressio n History of malignant lymphoma 261846475 Z85.79 dx 1996 goes to cancer once a year, gets blood work Osteonecrosis of hip 444 266976 M87.851 M87.852 rarely bother her if she keeps exercising and stretching . Essential hypertension 41089739 I10 followed by renal, hx of preeclamps ia well controlled Female uri nary stress incontinence 77342468 N39.3 new issue raised by pt, ongoing, quite bothersome , recc referral to urogynecol dhaval, needs urodynamic s and possible meds or bladder suspension [id number] Ryanne moreland MD Main Office [address] [facility] [address] [facility] [place] [address] 10/05/2019 14:03:41 10/05/2019 14:54:03 Female urinary stress incontinence 20382030 N39.3 had a successful surgery with bladder suspension , she has no further incontinen ce very pleased History of malignant lymphoma 083082264 Z85.79 dx 1995 goes to cancer once a year, gets blood work Dr Browne follows annually Essential hypertension 68054615 I10 followed by renal, hx of preeclamps ia well controlled Hypercholesterolemia 136 22603 E78.00 fasting History of breast biopsy with benign finding 6669429434 89879 Z98.890 on right marker left, no concerns [id number] Ryanne moreland MD Tele[facility] [address] [place] [address] 03/22/2020 13:06:06 03/23/2020 07:41:07 Essential hypertension 27572407 I10 BP well controlled , continue meds Migraine 25750038 G43.90 9 just started monthly injecitons for suppressio n. migraines are much less common and less intense [id number] Ryanne moreland MD Main Office [address] [facility] [address] [place] [address] 05/31/2021 15:33:38 06/01/2021 09:03:27 Hypokalemia 40747235 E87.6 stop hctz likely causing this, can also stop potassium as she will be starting ACEI Atypical chest pain 1025 85506 R07.89 ekg normal, likely GI episode with vasovagal sx. Pt had stress test a few years ago, prefers to monitor sx with med changes to see if better. Will call if has any further episodes. Essential hypertension 08275236 I10 stop hctz and potassium, will start lisinopril 5 mg daily. Pt to do labs a week or two after starting and followup in a month. She will monitor BP at home. [id number] Ryanne moreland MD Main Office [address] [address] [place] [address] 08/23/2021 15:51:43 08/23/2021 16:52:13 Essential hypertension 60864654 I10 BP is well controlled continue meds Osteonecrosis of hip 444 809673 M87.851 rarely bother her if she keeps exercising and stretching . Neck pain 38716080 M54.2 see hpi, injury 01/23 pt to do PT and heat, trial of low dose flexeril Migraine 39524244 G43.90 9 is on nortryptyl ine and injections , they are helpful [id number] Ryanne moreland MD Main Office [address] [address] [place] [address] 10/09/2021 13:56:30 10/09/2021 15:04:48 Pain of toe of left foot 5313840111 48052 M79.675 Likely covid toes, keep feet as warm as possible, wear shoes or slippers, elevate feet, topical steroid not helpful, would try gabapentin at night for aching pain. Vascular appt due to underlying condtion of neuropathy , decreased capillary refill. History of SARS-CoV-2 29 65021410 24932528 Z86.16 likely covid toes , will have her seen by vascular due to underlying neuropathy and poor circulatio n from previous chemothera py. Pt to call if any worseing sx. Called podiatry they do no see people with this condition. Call in to ID to see if any other options for treatment are available [id number] Ryanne moreland MD Main Office [address] [facility] [address] [place] [address] 01/12/2022 15:22:23 01/12/2022 16:03:17 Adult health examination 825620123 Z00.00 pap is utd as is mammogram. is active Essential hypertension 13800217 I10 BP is well controlled continue meds Migraine 59985040 G43.90 9 on injections , very helpful Neck pain 62939432 M54.2 muscle spasm, no injury use as needed avoid alcohol with muscle relaxer [id number] ABBEY KURTZ MD Main Office [address] [facility] [address] [facility] [place] [address] 09/17/2022 10:52:23 09/17/2022 11:27:11 Upper abdominal pain [id number] R10.10 - pain located in the left [...] diverticul itis/diver ticulosis Gastroesop hageal reflux disease [id number] K21.9 - pt has a history of [...] chocolate, alcohol, peppermint , and fatty foods. [id number] Ryanne moreland MD Main Office [address] [facility] [address] [facility] [place] [address] 10/05/2022 15:52:46 10/05/2022 16:15:33 Essential hypertension 94921516 I10 BP is well controlled continue meds Abdominal pain 73187016 R10.9 to see GI, I asked to check on appt [id number] Dino Baez MD Main Office [address] [facility] 207 [facility] [place] [address] 11/12/2022 15:23:59 11/12/2022 16:44:30 Sprain of ligament of metatarsophalangeal joint of great toe 156219255 S93.522A x > 2 wks - seen by [facility] - 'turf toe' - negative xrays - still has edema/tend erness/jj thema - but not warm, so doubt gout - will get senior publications specialist carlo arce, trial c diclofenac [id number] ABBEY KURTZ MD Main Office [address] [facility] [address] [facility] [place] [address] 02/07/2023 13:27:41 02/07/2023 14:21:13 Adult health examination [id number] Z00.00 Health Maintenanc e FemaleA) Patient was [...] not this yearTdAP: 04/05/2015 Zoster: due at 46POI64: due at 11CYYC65: due at 52CTV36:PC V15:COVID: 08/10/2020 , 09/07/2020 , 06/09/2021 D) Routine blood work orderedE) Updated patient's history RTC in one year for annual exam or sooner if any acute complaints Essential hypertension 61605699 I10 - at goal- BP today 112/73- [...] with your vision. 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 Migraine 95581034 G43.90 9 - chronic migraine without aura [...] - last seen by neuro 09/2022 Fatigue 52734509 R53.83 Z00.00 Hyperlipidemia 53521935 E78.5 Z00.00 Hepatitis C screening 41 7526998 Z11.59 Sprain of ligament of metatarsophalangeal joint of great toe 010556073 S93.522A - x-ray 10/27 was normal- pt underwent MRI with ortho and was normal as per patient, will try to get the result- pt was also placed in a walking boot for a period of time- pt was referred to podiatry for further evaluation and second opinion [id number] Robbie Luevano MD Main Office [address] [facility] 207 [place] [address] 09/20/2023 09:54:40 09/20/2023 10:36:02 Pain of right ankle joint [id number] 5629508 M25.571 will check XR and refer to orthopedic s. Sx for 5 months and triggered by specific motions/ movements. ? partial tear. seh declines PT for now, she has been doing home PT on her won. takes naproxen as needed. Pain in ri ght lower limb 566683686 M79.604 pain radiates up to left lateral leg into her knee. [id number] ABBEY KURTZ MD Main Office [address] [facility] 207 [place] [address] 03/20/2024 15:00:18 03/20/2024 15:40:53 Adult health examination [id number] Z00.00 Health Maintenanc e FemaleA) Patient was [...] nfluenza: 05/24/2023 TdAP: 04/05/2015 Zoster: due at 50EFR61: due at 34BRKK37: due at 56CLO73:PC V15:COVID: 08/10/2020 , 09/07/2020 , 06/09/2021 D) Routine blood work orderedE) Updated patient's history RTC in one year for annual exam or sooner if any acute complaints Essential hypertension 03688217 I10 - at goal- BP today 124/73- [...] ve trouble with your vision. 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 Migraine 08531493 G43.90 9 - chronic migraine without aura [...] - last seen by neuro 10/2023 Fatigue 08933019 R53.83 Z00.00 Hyperlipidemia 14900250 E78.5 Z00.00 FASTING Screening for malignant neoplasm of cervix 072451346 Z12.4 Herpes labialis 1490251 B00.1 - pt has had 4 recurrent episodes within the year- will start on ppx- RTC in 3 months HIV screen ing declined [id number] 49684 Z53.20 [id number] ABBEY KURTZ MD Main Office [address] [place] [address] 06/18/2024 11:05:50 06/18/2024 12:18:04 Allergic rhinitis 40785532 J30.9 - pt follows with allergy, get shots- c/w flonase and keshawn OTC- taking benadryl as needed Herpes labialis 6929495 B00.1 - pt has had 4 recurrent episodes within the year- c/w ppx therapy- RTC in 3 months Dry cough 56470592 R05.9 - pt has been having a [...] time as it did not provide relief [id number] Dino Baez MD Main Office [address] [place] [address] 08/13/2024 14:47:34 08/13/2024 15:40:01 Essential hypertension 63832883 I10 pt off acei d/t dry cough (resolved) since 11.24bp going back upwill initiate arb - losartan 50mg qhscont to monitor bp - if too low, then cut in /2 = 25mg [id number] Dino Baez MD Main Office [address] [facility] 207 [facility] [place] [address] 10/12/2024 08:53:47 10/12/2024 09:55:04 Pain in bilateral feet 6703107614 0356707 M79.672 has had x ~ 3 yrs p covid infxn - seen by vascular 4.22 - ? covid toe ? crps ? other - chilbain's , raynaud'sw ill get rheum eval meanwhile, see below:as per online - Treatment For chilblains , keep the affected area warm and dry, and avoid clothing that rubs For Raynaud's, calcium channel blockers can help Essential hypertension 96503772 I10 pt off acei d/t dry cough (resolved) since 11.24bp going back upwill initiate arb - losartan 50mg qhscont to monitor bp - if too low, then cut in 1/2 = 25mg 3.25 - bp stable lately on losartan 50mg, but in light of above sxs - will change to amlodipine 2.5mg --- stop losartan [id number] ABBEY KURTZ MD Main Office [address] [facility] 207 [place] [address] 11/12/2024 14:29:56 11/12/2024 14:54:04 Essential hypertension 46348009 I10 - elevated- BP today 135/88 and [...] low-fat dairy. These foods are high in mishar nutrients such as potassium, magnesium, calcium, fiber, [...] your ankles.>[place] ve trouble with your vision. [id number] ABBEY KURTZ MD Main Office [address] [facility] 207 [facility] [place] [address] 03/26/2025 08:26:37 03/26/2025 09:04:28 General examination of patient 463218239 Z00.00 [id number] Health Maintenanc e FemaleA) Patient was counseled [...] TdAP: 04/05/2015 -> 04/2025Zost er: due at 33ZFR34: due at 18LLPL23: due at 06FZI13:PC V15:COVID: 08/10/2020 , 09/07/2020 , 06/09/2021 D) Routine blood work orderedE) Updated patient's history RTC in one year for annual exam or sooner if any acute complaints Essential hypertension 32283093 I10 - at goal- BP today 118/81- [...] ve trouble with your vision. 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 Persistent cough 3088952 02 R05.3 407848 - this has been a chronic intermitte [...] Dominique Member ID Guarantor Name 04/12/2025 1 HERI (PPO) [id number] Heron Joel Natarajan [id number] Kaci Cutler [place] 06/17/2024 1 [id number] Heron Delgado [id number] Kaci Cutler [place] Notes Date Note Type Note Provider Name [...] patient stopped medication. ABBEY KURTZ MD [address] [facility] [address], [place], [address], [facility] [place] 06/18/2024 12:14:46 08/13/2024 text/html Hypertension F/UReported [...] back up though Prasanna Joya PA-C [address] [facility] [address], [place], [address], [facility] 08/13/2024 20:09:52 10/12/2024 text/html Swelling in toes [...] lidocaine roll on Prasanna Joya PA-C [address] [address], [place], [address], [facility] 10/12/2024 09:58:32 11/12/2024 text/html Hypertension F/UReported by [...] and trouble sleeping. ABBEY KURTZ MD [address] [address], [place], [address], [facility] 11/12/2024 14:56:34 03/26/2025 text/html Generic HPI TemplateReported [...] contacts)Diet: regularActivity: stationary bike ABBEY KURTZ MD [address] [facility] [address], [place], [address], [facility] 03/26/2025 09:25:16 OBGyn Episode No OBEpisode recorded.
== END 2025-07-05 15:22 | disposition home or self-care (01) ==
LOC: HO.HMGAL 15:21
PROVIDERS: PCP Student in an Organized Health Care Education/Training Program; Visit Provider Registered Nurse Emergency
DX: J30.89 Other allergic rhinitis (principal)
CPT/HCPCS: 95117; 95165